=== PATIENT | female | born 1935 | race Hispanic/Latino ===

== ENCOUNTER 2016-12-26 13:48 | Inpatient (IN) | payer MEDICARE, BC ==
[2016-12-26 13:48] VITALS: BMI 25.0
[2016-12-26] MEDS ORDERED: Piperacill/Tazo 3.375gm in Dex 3.375 GM/50 ML BAG IVPB STA (14:01)
[2016-12-26] MEDS ORDERED: Vancomycin 1 gm/NS 200 ml 1 GM/200 ML BAG IVPB STA (14:01)
[2016-12-26 14:18] LABS: VENOUS BLOOD GAS BASE EXCESS 12.9 mmol/L (0.0-2.0); VENOUS BLOOD GAS PCO2 62 mmHg (40-60); VENOUS BLOOD PH 7.42 (7.32-7.43)
[2016-12-26 14:53] LABS: POTASSIUM 4.1 mmol/L (3.6-5.2)
[2016-12-26 14:56] LABS: ALB/GLOB RATIO 0.7 (1.0-2.1); BILIRUBIN,TOTAL 0.8 mg/dL (0.2-1.3); CALCIUM 7.5 mg/dl (8.6-10.4); TOTAL PROTEIN 7.3 g/dL (6.3-8.3)
[2016-12-26 14:58] LABS: INR 1.3
[2016-12-26 15:22] LABS: BASO % 0.2 % (0.0-2.0); LYMPH # 1.9 K/uL (1.0-4.3); MEAN CORPUSCULAR HGB CONC 28.4 g/dL (33.0-37.0)
[2016-12-26 15:23] LABS: EOS % 0.2 % (0.0-4.0); LYMPH % 10.8 % (20.0-40.0); MEAN CELL VOLUME 93.1 fL (81.0-99.0); MEAN CORPUSCULAR HEMOGLOBIN 26.4 pg (27.0-31.0); MEAN PLATELET VOLUME 13.7 fL (7.2-11.7); MONO # 0.4 K/uL (0.0-0.8); MONO % 2.5 % (0.0-10.0); NRBC % 0.1 % (0.0-2.0); RED CELL DISTRIBUTION WIDTH 20.3 % (11.5-14.5); WHITE BLOOD COUNT 17.8 K/uL (4.8-10.8)
[2016-12-26 15:25] LABS: HEMATOCRIT 33.5 % (34.0-47.0)
--- NOTE | 2016-12-26 15:31 | RAD ---
HISTORY: Sepsis patient. Portable study 14:25. COMPARISON: 10/26/2015. FINDINGS: LUNGS: Interval improvement bilateral lower lobe infiltrates compared to the prior study. Resolution right upper lobe infiltrate. PLEURA: No significant pleural effusion identified, no pneumothorax apparent. CARDIOVASCULAR: Persistent/stable cardiomegaly. OSSEOUS STRUCTURES: No significant abnormalities. VISUALIZED UPPER ABDOMEN: Normal. OTHER FINDINGS: None. IMPRESSION: Interval improvement with respect infiltrates/effusions compared to the prior study.
[2016-12-26] MEDS ORDERED: Magnesium Hydroxide Susp 30 ml UD PEG PRN (16:14)
[2016-12-26] MEDS ORDERED: guaiFENesin 100 mg/5 ml Syrup UD PO PRN (16:15)
[2016-12-26] MEDS ORDERED: Silver Sulfadiazine 1% Cream (20 gm) TOP SCH (16:15)
[2016-12-26] MEDS ORDERED: (Novolin R) Insulin Human Regular 100 units/ml vial SC SCH (16:15)
[2016-12-26] MEDS ORDERED: Acetylcysteine 20% Inhal Soln (4ml) IH SCH (16:15)
[2016-12-26] MEDS ORDERED: Collagenase 250 Units/gm Ointment(30 gm) EXT SCH (16:15)
[2016-12-26] MEDS ORDERED: DUONEB INH SCH (16:15)
[2016-12-26] MEDS ORDERED: BACITRACIN TP SCH (16:15)
--- NOTE | 2016-12-26 16:37 | CP.PCM.CON ---
History of Present Illness - History of Present Illness History of Present Illness: 81yo F. 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 p/w hypovolemic hypernatremia with acute on chronic kidney failure, and severe sepsis. Review of Systems - Review of Systems Systems not reviewed;Unavailable: Dementia Past Patient History - Infectious Disease Hx of Infectious Diseases: None - Past Medical History & Family History Past Medical History?: Yes - Past Social History Smoking Status: Never Smoked - CARDIAC Hx Hypertension: Yes - PULMONARY Hx Chronic Obstructive Pulmonary Disease (COPD): Yes Hx Pneumonia: Yes - NEUROLOGICAL Hx Dementia: Yes - HEENT Hx HEENT Problems: No - RENAL Hx Chronic Kidney Disease: Yes Hx Kidney Stones: Yes - ENDOCRINE/METABOLIC Hx Endocrine Disorders: No - HEMATOLOGICAL/ONCOLOGICAL Hx Anemia: Yes - INTEGUMENTARY Hx Dermatological Problems: No Other/Comment: DECUBITIS stage 3. - MUSCULOSKELETAL/RHEUMATOLOGICAL Hx Osteoporosis: Yes - GASTROINTESTINAL Hx Gastrointestinal Disorders: Yes Hx Gastroesophageal Reflux: Yes HX Swallowing Problems: Yes Other/Comment: patient with GT feeding. - GENITOURINARY/GYNECOLOGICAL Hx Genitourinary Disorders: Yes Hx Incontinence: Yes Other/Comment: positive ESBL in urine - PSYCHIATRIC Hx Anxiety: Yes Hx Substance Use: No (unknown) - SURGICAL HISTORY Hx Surgeries: Yes Hx Joint Replacement: Yes Other/Comment: PEG PLACEMENT - ANESTHESIA Hx Anesthesia: Yes Hx Anesthesia Reactions: No Hx Malignant Hyperthermia: No Meds Allergies/Adverse Reactions: Allergies Allergy/AdvReac Type Severity Reaction Status Date / Time No Known Allergies Allergy Verified 12/26/16 13:59 - Medications Medications: Current Medications Acetaminophen (Tylenol 325mg Tab) 650 mg PO Q4H PRN PRN Reason: Pain, Mild (1-3) Acetylcysteine (Acetylcysteine 20%) 4 ml IH Q6H [facility] Albuterol/Ipratropium (Duoneb 3 Mg/0.5 Mg (3 Ml) Ud) 3 ml INH RQID [facility] Collagenase (Santyl) 30 gm EXT Q8H [facility] Epoetin Eddy (Procrit) 10,000 unit SC MWF [facility] Folic Acid (Folic Acid) 1 mg PEG DAILY [facility] Guaifenesin (Robitussin) 100 mg PO Q4H PRN PRN Reason: Cough Home Med (Bacitracin [Bacitracin]) 1 each TP Q8H [facility] Home Med (Duoneb 3 Mg/0.5 Mg (3 Ml) Ud) 3 ml INH Q6H [facility] Dextrose (Dextrose 5% In Water 1000 Ml) 1,000 mls @ 100 mls/hr IV .Q10H [facility] Cefepime HCl (Maxipime Iv 2 Gm Premix) 2 gm in 100 mls @ 200 mls/hr IVPB Q8H [facility] Stop: 12/31/16 17:01 Vancomycin HCl 1,000 mg/ (Sodium Chloride) 250 mls @ 166.6 mls/hr IVPB Q12H [facility] Insulin Human Regular (Novolin R) 0 unit SC Q6H [facility] PRN Reason: Protocol Magnesium Hydroxide (Milk Of Magnesia) 30 ml PEG DAILY PRN PRN Reason: Constipation Pantoprazole Sodium (Protonix Susp) 40 mg PEG DAILY [facility] Silver Sulfadiazine (Silvadene 1% 20 Gm) 20,000 ea TOP Q8H [facility] Physical Exam - Constitutional Appears: Cachectic - Head Exam Head Exam: ATRAUMATIC, NORMAL INSPECTION, NORMOCEPHALIC - Eye Exam Eye Exam: EOMI Pupil Exam: PERRL - ENT Exam ENT Exam: Mucous Membranes Dry - Respiratory Exam Respiratory Exam: Decreased Breath Sounds - Cardiovascular Exam Cardiovascular Exam: Irregular Rhythm - GI/Abdominal Exam GI & Abdominal Exam: Normal Bowel Sounds. absent: Distended - Neurological Exam Neurological exam: Alert Results - Vital Signs Recent Vital Signs: Last Vital Signs Temp 101.3 F H 12/26/16 15:52 Pulse 49 L 12/26/16 15:46 Resp 40 H 12/26/16 15:46 BP 95/49 L 12/26/16 15:46 Pulse Ox 97 12/26/16 15:46 - Labs Result Diagrams: 12/26/16 14:35 12/26/16 14:35 Assessment & Plan (1) Acute hypernatremia Assessment and Plan: 81yo F. 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 p/w hypovolemic hypernatremia with acute on chronic kidney failure, and severe sepsis. Neuro: obtunded, metabolic encephalopathy. Palliative care consult to be called. Pulm: Healthcare associated pneumonia, continue duo nebs, guaifenesin, chest PT. Chest x-ray is deceiving, previous CT chest shows large boot shaped heart taking up most of left lower lung space, chronic dependent atelectasis with probably underlying pneumonia. CV: Mild hypotension, responsive to fluids. Hem: Anemia of chronic disease, continue Procrit Renal: Acute on chronic kidney disease, prerenal state hypovolemic state, severe hypovolemic hypernatremia. Starting D5W, every 4 BMPs. Endo: Questionable diabetes, check hemoglobin A1c. GI: Nothing by mouth ID: Severe sepsis from multiple sources, healthcare associated pneumonia, sacral decubitus, PEG Site infection and possible UTI awaiting urinalysis. Continue cefepime and Vanco and azithromycin. DVT proph - heparin subcutaneous GI proph - Protonix zambrano for strict I/O's during acute illness Code status - DNR/DNI Patient appears gravely ill, poor prognosis with high mortality risk. Crtical Care Time spent 45 minutes Multi-disciplinary rounds were performed with house staff, nursing, speech therapy, respiratory therapy, pharmacy and nutrition with integrated input from the primary team/attending and other consulting services. The documented time is cumulative and includes review of patient data/exams/labs/chart review and examination of the patient on rounds and throughout the day; time is exclusive of any procedures or teaching time. Status: Acute
--- NOTE | 2016-12-26 16:48 | CP.PCM.CON ---
History of Present Illness - History of Present Illness History of Present Illness: 81 yo female admitted to the ICU at with severe sepsis referred for ID eval for antibiotic management unable to provide details of PMH, SH FH or ROS last October had GT site infection with Pseudomonas resistant to Cefepime PMHx aspiration pneumonia, Dementia, COPD, duodenal ulcer, HTN, stage 5 CKD ( not on dialysis), PEG site infection. Review of Systems - Review of Systems Systems not reviewed;Unavailable: Altered Mental Status - Constitutional Constitutional: absent: As Per HPI, Anorexia, Chills, Daytime Sleepiness, Excessive Sweating, Fatigue, Fever, Frequent Falls, Headache, Increased Appetite , Lethargy, Malaise, Night Sweats, Snoring, Sleep Apnea, Weight Gain, Weight Loss, Weakness, Other - EENT Eyes: absent: As Per HPI, Blind Spots, Blurred Vision, Change in Vision, Decreased Night Vision, Diplopia, Discharge, Dry Eye, Exophthalmos, Floaters, Irritation, Itchy Eyes, Loss of Peripheral Vision, Pain, Photophobia, Requires Corrective Lenses, Sees Flashes, Spots in Vision, Tunnel Vision, Other Visual Disturbances, Loss of Vision, Other Ears: absent: As Per HPI, Decreased Hearing, Ear Discharge, Ear Pain, Tinnitus, Abnormal Hearing, Disequilibrium, Dizziness, Other Nose/Mouth/Throat: absent: As Per HPI, Epistaxis, Nasal Congestion, Nasal Discharge, Nasal Obstruction, Nasal Trauma, Nose Pain, Post Nasal Drip, Sinus Pain, Sinus Pressure, Bleeding Gums, Change in Voice, Dental Pain, Dry Mouth, Dysphagia, Halitosis, Hoarsness, Lip Swelling, Mouth Lesions, Mouth Pain, Odynophagia, Sore Throat, Throat Swelling, Tongue Swelling, Facial Pain, Neck Pain, Neck Mass, Other - Breasts Breasts: absent: As Per HPI, Change in Shape, Mass, Pain, Nipple Discharge, Nipple Inversion, Skin Changes, Swelling, Other - Cardiovascular Cardiovascular: absent: As Per HPI, Acrocyanosis, Chest Pain, Chest Pain at Rest , Chest Pain with Activity, Claudication, Diaphoresis, Dyspnea, Dyspnea on Exertion, Edema, Irregular Heart Rhythm, Pain Radiating to Arm/Neck/Jaw, Leg Edema, Leg Ulcers, Lightheadedness, Orthopnea, Palpitations, Paroxysmal Nocturnal Dyspnea, Pedal Edema, Radiating Pain, Rapid Heart Rate, Slow Heart Rate, Syncope, Other - Respiratory Respiratory: As Per HPI - Genitourinary Genitourinary: absent: As Per HPI, Change in Urinary Stream, Difficulty Urinating, Dysuria, Flank Pain, Hematuria, Pyuria, Nocturia, Urinary Incontinence, Urinary Frequency, Urinary Hesitance, Urinary Urgency, Voiding Freq/Small Amts, Freq UTI, Hx Renal/Bladder Calculi, Hx /Renal Surgery, Bladder Distension, Other - Reproductive: Female Reproductive:Female: absent: As Per HPI, Amenorrhea, Amenorrhea/ Control, Currently Menstual, Cycle <21 Days, Cycle >35 Days, Cycle Variable, Menses 1-7 Days, Menses >/= 8 Days, Menses Variable, Cycle > 4 Weeks Between, No Menses for 6 Months, Heavy Menses, Light Menses, Normal Menses, Spotting Between Cycles , S/P Hysterectomy, Menopausal, Post Menopausal, Premenarche, Abnormal Vaginal Bleeding, Dysmenorrhea, Dyspareunia, Genital Lesions, Genital Pruritis, Pelvic Pain, Prolapse Symptoms, Sexual Dysfunction, Vaginal Discharge, Vaginal Dryness , Vaginal Odor, Vaginal Pruritis, Other - Menstruation Menstruation: absent: As Per HPI, Amenorrhea, Amenorrhea/ Control, Currently Menstual, Cycle <21 Days, Cycle >35 Days, Cycle Variable, Menses 1-7 Days, Menses >/= 8 Days, Menses Variable, Cycle > 4 Weeks Between, No Menses for 6 Months, Heavy Menses, Light Menses, Normal Menses, Spotting Between Cycles , S/P Hysterectomy, Menopausal, Post Menopausal, Premenarche, Abnormal Vaginal Bleeding, Dysmenorrhea, Other - Musculoskeletal Musculoskeletal: absent: As Per HPI, Abnormal Gait, Arthralgias, Atrophy, Back Pain, Deformity, Joint Swelling, Limited Range of Motion, Loss of Height, Muscle Cramps, Muscle Weakness, Myalgias, Neck Pain, Numbness, Radiating Pain into Limb, Stiffness, Tingling, Other - Integumentary Integumentary: absent: As Per HPI, Acne, Alopecia, Bleeding Lesions, Change in Hair, Change in Nails, Change in Pigmentation, Changing Lesions, Dry Skin, Erythema, Furuncle, Hirsutism, Lesions, New Lesions, Non-Healing Lesions, Photosensitivity, Pruritus, Rash, Skin Pain, Skin Ulcer, Sores, Striae, Swelling , Unusual Bruising, Wounds, Jaundice, Other - Neurological Neurological: As Per HPI - Psychiatric Psychiatric: absent: As Per HPI, Abnormal Sleep Pattern, Anhedonia, Anxiety, Auditory Hallucinations, Behavioral Changes, Change in Appetite, Change in Libido, Confusion, Depression, Difficulty Concentrating, Hallucinations, Homicidal Ideation, Hopelessness, Irritability, Memory Loss, Mood Swings, Panic Attacks, Paranoia, Suicidal Ideation, Visual Hallucinations, Tactile Hallucinations, Other - Endocrine Endocrine: absent: As Per HPI, Change in Body Appearance, Change in Libido, Cold Intolorance, Deepening of Voice, Excessive Sweating, Fatigue, Flushing, Heat Intolorance, Increase in Ring/Shoe/Hat Size, Palpitations, Polydipsia, Polyphagia, Polyuria, Other - Hematologic/Lymphatic Hematologic: absent: As Per HPI, Easy Bleeding, Easy Bruising, Lymphadenopathy, Other Past Patient History - Infectious Disease Hx of Infectious Diseases: None - Past Medical History & Family History Past Medical History?: Yes - Past Social History Smoking Status: Never Smoked - CARDIAC Hx Hypertension: Yes - PULMONARY Hx Chronic Obstructive Pulmonary Disease (COPD): Yes Hx Pneumonia: Yes - NEUROLOGICAL Hx Dementia: Yes - HEENT Hx HEENT Problems: No - RENAL Hx Chronic Kidney Disease: Yes Hx Kidney Stones: Yes - ENDOCRINE/METABOLIC Hx Endocrine Disorders: No - HEMATOLOGICAL/ONCOLOGICAL Hx Anemia: Yes - INTEGUMENTARY Hx Dermatological Problems: No Other/Comment: DECUBITIS stage 3. - MUSCULOSKELETAL/RHEUMATOLOGICAL Hx Osteoporosis: Yes - GASTROINTESTINAL Hx Gastrointestinal Disorders: Yes Hx Gastroesophageal Reflux: Yes HX Swallowing Problems: Yes Other/Comment: patient with GT feeding. - GENITOURINARY/GYNECOLOGICAL Hx Genitourinary Disorders: Yes Hx Incontinence: Yes Other/Comment: positive ESBL in urine - PSYCHIATRIC Hx Anxiety: Yes Hx Substance Use: No (unknown) - SURGICAL HISTORY Hx Surgeries: Yes Hx Joint Replacement: Yes Other/Comment: PEG PLACEMENT - ANESTHESIA Hx Anesthesia: Yes Hx Anesthesia Reactions: No Hx Malignant Hyperthermia: No Meds Allergies/Adverse Reactions: Allergies Allergy/AdvReac Type Severity Reaction Status Date / Time No Known Allergies Allergy Verified 12/26/16 13:59 - Medications Medications: Current Medications Acetaminophen (Tylenol 325mg Tab) 650 mg PO Q4H PRN PRN Reason: Pain, Mild (1-3) Acetylcysteine (Acetylcysteine 20%) 4 ml IH Q6H [facility] Albuterol/Ipratropium (Duoneb 3 Mg/0.5 Mg (3 Ml) Ud) 3 ml INH RQID [facility] Bacitracin (Bacitracin) 1 ea TOP Q8H [facility] Collagenase (Santyl) 1 gm EXT Q8H [facility] Epoetin Eddy (Procrit) 10,000 unit SC MWF [facility] Folic Acid (Folic Acid) 1 mg PEG DAILY [facility] Guaifenesin (Robitussin) 100 mg PO Q4H PRN PRN Reason: Cough Dextrose (Dextrose 5% In Water 1000 Ml) 1,000 mls @ 100 mls/hr IV .Q10H [facility] Cefepime HCl (Maxipime Iv 2 Gm Premix) 2 gm in 100 mls @ 200 mls/hr IVPB Q8H [facility] Stop: 12/31/16 17:01 Vancomycin HCl 1,000 mg/ (Sodium Chloride) 250 mls @ 166.6 mls/hr IVPB Q12H [facility] Insulin Human Regular (Novolin R) 0 unit SC Q6H [facility] PRN Reason: Protocol Magnesium Hydroxide (Milk Of Magnesia) 30 ml PEG DAILY PRN PRN Reason: Constipation Pantoprazole Sodium (Protonix Susp) 40 mg PEG DAILY [facility] Silver Sulfadiazine (Silvadene 1% 20 Gm) 0.02 ea TOP Q8H [facility] Physical Exam - Constitutional Appears: Confused, Cachectic, Chronically Ill - Head Exam Head Exam: ATRAUMATIC, NORMAL INSPECTION, NORMOCEPHALIC - Eye Exam Eye Exam: EOMI, PERRL. absent: Scleral icterus - ENT Exam ENT Exam: Mucous Membranes Dry - Neck Exam Neck exam: Negative for: Lymphadenopathy - Respiratory Exam Respiratory Exam: Decreased Breath Sounds, Rales, Rhonchi - Cardiovascular Exam Cardiovascular Exam: REGULAR RHYTHM, +S1, +S2 - GI/Abdominal Exam GI & Abdominal Exam: Diminished Bowel Sounds, Distended, Soft. absent: Guarding , Rebound, Rigid, Tenderness - Rectal Exam Rectal Exam: Deferred - Exam Exam: NORMAL INSPECTION - Extremities Exam Extremities exam: Positive for: pedal pulses present. Negative for: calf tenderness, pedal edema, tenderness - Back Exam Back exam: absent: CVA tenderness (L), CVA tenderness (R), paraspinal tenderness - Neurological Exam Neurological exam: Alert, Altered, CN II-XII Intact - Psychiatric Exam Psychiatric exam: Depressed - Skin Skin Exam: Dry Results - Vital Signs Recent Vital Signs: Last Vital Signs Temp 101.3 F H 12/26/16 15:52 Pulse 49 L 12/26/16 15:46 Resp 40 H 12/26/16 15:46 BP 95/49 L 12/26/16 15:46 Pulse Ox 97 12/26/16 15:46 - Labs Result Diagrams: 12/26/16 14:35 12/26/16 14:35 Assessment & Plan (1) Acute hypernatremia Status: Acute (2) Blood bacterial culture positive Status: Acute (3) COPD with lower respiratory infection Status: Acute (4) CVA (cerebral vascular accident) Status: Acute (5) Pneumonia Status: Acute (6) Sepsis Status: Acute (7) Sepsis with metabolic encephalopathy Status: Acute (8) Septic shock Status: Acute - Assessment and Plan (Free Text) Assessment: cont iv rx await cultures and serologies
[2016-12-26 16:55] LABS: ABG ALLEN TEST PO; DRAW SITE RRA
[2016-12-26] MEDS ORDERED: Cefepime IV 2 gm in Dextrose 2 GM/100 ML BAG IVPB SCH (17:00)
[2016-12-26] MEDS: Albuterol-Ipratrop 3 mg / 0.5 (3 ml) UD INH SCH ×2 (17:27→19:54)
--- NOTE | 2016-12-26 18:06 | C.PDOC ---
History Of Present Illness 81-year-old female, is transferred from assisted for "breathing problems." Pt brought in by bls using bag-valve mask. Found to have afever of 102. Patients blood pressure in the 70's. Review of paperwork, POLTS with DNR/DNI including. All other Hx limited because patient is unresponsive. Chief Complaint (Nursing): Altered Mental Status History Per: EMS, Other (USP DOCUMENTS) History/Exam Limitations: clinical condition Current Symptoms Are (Timing): Still Present Severity: Moderate Past Medical History Reviewed: Historical Data, Nursing Documentation, Vital Signs Vital Signs: Last Vital Signs Temp 101.3 F H 12/26/16 15:52 Pulse 114 H 12/26/16 17:00 Resp 40 H 12/26/16 15:46 BP 95/49 L 12/26/16 15:46 Pulse Ox 97 12/26/16 19:05 - Medical History PMH: Anemia, Anxiety, Arthritis, COPD, Dementia, Fractures, Gastrointestinal Ulcer (GIB), GERD, HTN, Kidney Stones, Osteoporosis, Pneumonia, Chronic Kidney Disease - [facility] Procedures ATTACH PEDICLE GRAFT NEC (07/25/13) CENTRAL VENOUS CATHETER PLACEMENT WITH GUIDANCE (04/22/14) CLOSED ENDOSCOPIC BIOPSY OF LARGE INTESTINE (12/20/01) DX ULTRASOUND-HEART (01/17/13) ENTERAL INFUSION OF CONCENTRATED NUT. SUBSTANCES (03/29/14) ESOPHAGOGASTRODUODENOSCOPY [EGD] W/CLOSED BIOPSY (02/19/05) HEMODIALYSIS (01/17/13) INCIS W REM OF FORIEGN BODY OR DEV FROM SKIN & SUBCUT TISSUE (02/19/13) INFLUENZA VACCINATION (05/22/14) INJECT/INFUSE NEC (08/30/06) INSERTION OF INFUSION DEV INTO SUP VENA CAVA, PERC APPROACH (09/10/16) INSPECTION OF UPPER INTESTINAL TRACT, ENDO (09/10/16) INTRODUCTION OF NUTRITIONAL INTO PERIPH VEIN, PERC APPROACH (10/24/16) INTRODUCTION OF VASOPRESSOR INTO PERIPH VEIN, PERC APPROACH (10/24/16) MAGNETIC RESONANCE IMAGING OF BRAIN AND BRAIN STEM (03/02/07) OTHER ENDOSCOPY OF SM INTEST (01/07/15) OTHER FASCIECTOMY (07/25/13) OTHER GASTROSCOPY (05/22/14) OTHER MYECTOMY (01/17/13) PACKED CELL TRANSFUSION (01/17/13) PERCUTANEOUS [ENDOSCOPIC] GASTROSTOMY [PEG] (01/07/15) PERIOP AUTOLOGOUS BLOOD/COMP TRANS (08/30/06) PSYCHIAT DRUG THERAP NEC (04/08/07) REMOV GASTROSTOMY TUBE (01/07/15) REMOV INTRALUM GASTR FB (05/22/14) REMOVAL OF OTHER DEVICE FROM GI TRACT, PERC APPROACH (10/24/16) TOTAL HIP REPLACEMENT (08/30/06) TRANSFUSE NONAUT RED BLOOD CELLS IN PERIPH VEIN, PERC (10/24/16) VACCINATION NEC (05/22/14) VENOUS CATHETERIZATION FOR RENAL DIALYSIS (01/17/13) VENOUS CATHETERIZATION NEC (05/22/14) Family History: States: Unknown Family Hx - Social History Hx Tobacco Use: No Hx Alcohol Use: No (unknown) Hx Substance Use: No (unknown) - Immunization History Hx Influenza Vaccination: Yes Hx Pneumococcal Vaccination: Yes Review Of Systems Review Of Systems: ROS cannot be obtained secondary to pt's inabilty to answer questions. Respiratory: Positive for: Shortness of Breath Physical Exam - Physical Exam Appears: Toxic, In Acute Distress, Chronically Ill, Other Skin: Normal Color, Warm (reallyh hot), Other (extensive sacral decubiti) Head: Atraumatic, Normacephalic Eye(s): bilateral: Normal Inspection, PERRL Nose: Normal Oral Mucosa: Dry Neck: Normal ROM Chest: Symmetrical Cardiovascular: Rhythm Regular Respiratory: Decreased Breath Sounds, Rhonchi (SCATTERED) Gastrointestinal/Abdominal: Soft, No Tenderness (apparent), No Distention, No Guarding, Other (FEEDING TUBE IN PLACE) Extremity: Normal ROM Pain Response: Withdraws With Pain, Other (no focal signs) Disoriented To: Person, Place, Time Gait: Unable To Assess ED Course And Treatment - Laboratory Results Result Diagrams: 12/26/16 14:35 12/26/16 14:35 ECG: Interpreted By Me ECG Rhythm: Sinus Rhythm Interpretation Of ECG: Old inf SC, poor r wave progression, low voltage Rate From EC O2 Sat by Pulse Oximetry: 97 - Radiology CXR: Interpreted by Me CXR Interpretation: Yes: Infiltrates Critical Care Time - Critical Care Note Total Time (in mins): 30 Documented critical care: time excludes all time spent performing seperately billable procedures. Medical Decision Making Medical Decision Making: Code sepsis called in ED cultures, VBG, and fluids ordered Abx coverage, started for skin, post cxr avalox added BP improved, temp down Labs with markedly elevated wbc's, na and bun Discussed with dr Marcelle Magallanes and Intensiveist Plan ICU Disposition - Disposition Disposition: HOSPITALIZED Disposition Time: 06:00 Condition: CRITICAL - Clinical Impression Clinical Impression: Sepsis, Pneumonia, Hypernatremia, Dehydration - Scribe Statement The provider has reviewed the documentation as recorded by the Charletteibbobbi Philip All medical record entries made by the Charletteibbobbi were at my direction and personally dictated by me. I have reviewed the chart and agree that the record accurately reflects my personal performance of the history, physical exam, medical decision making, and the department course for this patient. I have also personally directed, reviewed, and agree with the discharge instructions and disposition.
[2016-12-26] MEDS: Meropenem 1 GM in Sodium Chloride 0.9% 100 ML IVPB SCH ×2 (18:11→22:50)
[2016-12-26] MEDS: (Novolin R) Insulin Human Regular 100 units/ml vial SC SCH (18:12)
[2016-12-26] MEDS: Collagenase 250 Units/gm Ointment(30 gm) EXT SCH (18:12)
[2016-12-26] MEDS: Silver Sulfadiazine 1% Cream (20 gm) TOP SCH (18:12)
[2016-12-26] MEDS: Bacitracin 500 Units/gm Oint Foilpak UD TOP SCH (18:33)
[2016-12-26] MEDS ORDERED: Lactated Ringer's 1,000 ML IV ONE (20:22)
--- NOTE | 2016-12-26 20:45 | CP.PCM.HP ---
History of Present Illness - History of Present Illness History of Present Illness: 81-year-old female patient with medical history of hypertension, kidney stone, CKD, osteoporosis, GI ulcer, COPD, arthritis, pneumonia, patient is transferred from [place] [facility] for breathing difficulty, found to have high-grade fever. POLTS with DNR. Patient is unresponsive. Systolic blood pressure was in 70s. Diagnosed with septic shock and started on IV hydration antibiotics. Patient is having PEG tube, greenish discharge from the PEG tube. Present on Admission - Present on Admission Any Indicators Present on Admission: No Past Patient History - Infectious Disease Hx of Infectious Diseases: None - Past Medical History & Family History Past Medical History?: Yes - Past Social History Smoking Status: Unknown If Ever Smoked - CARDIAC Hx Hypertension: Yes - PULMONARY Hx Chronic Obstructive Pulmonary Disease (COPD): Yes Hx Pneumonia: Yes - NEUROLOGICAL Hx Dementia: Yes - HEENT Hx HEENT Problems: No - RENAL Hx Chronic Kidney Disease: Yes Hx Kidney Stones: Yes - ENDOCRINE/METABOLIC Hx Endocrine Disorders: No - HEMATOLOGICAL/ONCOLOGICAL Hx Anemia: Yes - INTEGUMENTARY Hx Dermatological Problems: No Other/Comment: DECUBITIS stage 3. - MUSCULOSKELETAL/RHEUMATOLOGICAL Hx Arthritis: Yes Hx Fractures: Yes Hx Osteoporosis: Yes - GASTROINTESTINAL Hx Gastrointestinal Disorders: Yes Hx Gastroesophageal Reflux: Yes HX Swallowing Problems: Yes Other/Comment: patient with GT feeding. - GENITOURINARY/GYNECOLOGICAL Hx Genitourinary Disorders: Yes Hx Incontinence: Yes Other/Comment: positive ESBL in urine - PSYCHIATRIC Hx Anxiety: Yes Hx Substance Use: No (unknown) - SURGICAL HISTORY Hx Surgeries: Yes Hx Joint Replacement: Yes Other/Comment: PEG PLACEMENT - ANESTHESIA Hx Anesthesia: Yes Hx Anesthesia Reactions: No Hx Malignant Hyperthermia: No Meds Allergies/Adverse Reactions: Allergies Allergy/AdvReac Type Severity Reaction Status Date / Time No Known Allergies Allergy Verified 12/26/16 13:59 Results - Vital Signs Recent Vital Signs: Last Vital Signs Temp 101.3 F H 12/26/16 15:52 Pulse 90 12/26/16 19:56 Resp 40 H 12/26/16 15:46 BP 95/49 L 12/26/16 15:46 Pulse Ox 97 12/26/16 19:27 - Labs Result Diagrams: 12/29/16 06:08 12/29/16 06:05 Labs: Laboratory Results - last 24 hr 12/26/16 16:50 Puncture Site Rra pCO2 64 H pO2 116 H HCO3 31.5 H ABG pH 7.36 ABG Total CO2 38.2 H ABG O2 Saturation 99.6 H ABG Base Excess 8.4 H Marcos Test Po ABG Potassium 3.2 L A-a O2 Difference 517.0 Respiratory Index 4.5 Sodium 182.0 H* Chloride 148.0 H Glucose 216 H Lactate 2.0 FiO2 100.0 Crit Value Called To Dr thompson Crit Value Called By Kimberley schmitt Crit Value Read Back Y Blood Gas Notified Time 1657 Arterial Blood Potassium 3.2 L Assessment & Plan (1) Acute hypernatremia Status: Acute (2) Blood bacterial culture positive Status: Acute (3) COPD with lower respiratory infection Status: Acute (4) CVA (cerebral vascular accident) Status: Acute (5) Cellulitis Status: Acute (6) Contusion Status: Acute (7) Dehydration Status: Acute (8) Fever and chills Status: Acute (9) Gastrostomy tube obstruction Status: Acute (10) Hypernatremia Status: Acute (11) PEG (percutaneous endoscopic gastrostomy) adjustment/replacement/removal Status: Acute (12) Physical debility Status: Acute (13) Pneumonia Status: Acute (14) Pneumonia Status: Acute (15) Sacral decubitus ulcer, stage III Status: Acute (16) Senile debility Status: Acute (17) Sepsis Status: Acute (18) Sepsis Status: Acute (19) Sepsis with metabolic encephalopathy Status: Acute (20) Septic shock Status: Acute (21) Abnormal CXR (chest x-ray) Status: Chronic (22) Aspiration into lower respiratory tract Status: Chronic (23) Dementia Status: Chronic - Assessment and Plan (Free Text) Plan: id septic wokr up iv antibiotic feeding iv fluid rptonix lvoenox faisal same
[2016-12-26] MEDS: Azithromycin 500 MG in Sodium Chloride 0.9% 250 ML IVPB SCH (21:21)
[2016-12-26 22:28] LABS: RBC URINE 6 /hpf (0-3); URINE BACTERIA FEW (<OCC); URINE BILIRUBIN NEGATIVE (NEGATIVE); URINE BLOOD NEGATIVE (NEGATIVE); URINE COLOR Yellow (YELLOW); URINE GLUCOSE (UA) NORMAL (Normal); URINE KETONE NEGATIVE (NEGATIVE); URINE LEUKOCYTE ESTERASE NEG Leu/uL (Negative); URINE PROTEIN 1+ mg/dL (NEGATIVE); URINE UROBILINOGEN NORMAL mg/dL (0.2-1.0); WBC URINE 22 /hpf (0-5)
[2016-12-27] MEDS: (Novolin R) Insulin Human Regular 100 units/ml vial SC SCH ×4 (00:07→18:31)
[2016-12-27 00:48] LABS: POTASSIUM 2.9 mmol/L (3.6-5.2)
[2016-12-27 00:52] LABS: CALCIUM 6.9 mg/dl (8.6-10.4); MAGNESIUM 3.6 mg/dL (1.6-2.3)
[2016-12-27] MEDS: Silver Sulfadiazine 1% Cream (20 gm) TOP SCH ×3 (01:21→18:00)
[2016-12-27] MEDS: Collagenase 250 Units/gm Ointment(30 gm) EXT SCH ×3 (01:22→18:00)
[2016-12-27] MEDS: Bacitracin 500 Units/gm Oint Foilpak UD TOP SCH (01:24)
[2016-12-27] MEDS: Meropenem 1 GM in Sodium Chloride 0.9% 100 ML IVPB SCH ×3 (05:00→22:00)
[2016-12-27 06:27] LABS: BASO % 0.2 % (0.0-2.0); EOS % 0.3 % (0.0-4.0); HEMATOCRIT 25.6 % (34.0-47.0); LYMPH # 0.9 K/uL (1.0-4.3); MEAN CELL VOLUME 93.7 fL (81.0-99.0); MEAN CORPUSCULAR HEMOGLOBIN 27.5 pg (27.0-31.0); MEAN CORPUSCULAR HGB CONC 29.4 g/dL (33.0-37.0); MEAN PLATELET VOLUME 13.5 fL (7.2-11.7); MONO # 0.2 K/uL (0.0-0.8); MONO % 1.7 % (0.0-10.0); NRBC % 0.1 % (0.0-2.0); PLATELET COUNT 106 K/uL (130-400); WHITE BLOOD COUNT 10.3 K/uL (4.8-10.8)
[2016-12-27 06:30] LABS: CHLORIDE 134 mmol/L (98-107)
[2016-12-27 06:31] LABS: POTASSIUM 3.1 mmol/L (3.6-5.2)
[2016-12-27 06:33] LABS: BILIRUBIN,TOTAL 0.2 mg/dL (0.2-1.3); CARBON DIOXIDE 29 mmol/L (22-30); GFR AFRICAN-AMERICAN > 60
[2016-12-27 06:34] LABS: ALB/GLOB RATIO 0.6 (1.0-2.1); ALKALINE PHOSPHATASE 83 U/L (38-126); ALT/SGPT 35 U/L (9-52); AST/SGOT 35 U/L (14-36); CALCIUM 6.9 mg/dl (8.6-10.4); GLUCOSE,RANDOM 287 mg/dL (65-105); MAGNESIUM 3.4 mg/dL (1.6-2.3); PHOSPHOROUS 3.4 mg/dL (2.5-4.5); TOTAL PROTEIN 5.6 g/dL (6.3-8.3)
[2016-12-27 06:38] LABS: BLOOD UREA NITROGEN 106 mg/dL (7-17)
[2016-12-27 06:39] LABS: SODIUM 172 mmol/L (132-148)
[2016-12-27] MEDS: Acetylcysteine 20% Inhal Soln (4ml) IH SCH ×4 (07:28→19:52)
[2016-12-27] MEDS: Albuterol-Ipratrop 3 mg / 0.5 (3 ml) UD INH SCH ×4 (07:28→19:52)
[2016-12-27] MEDS: Bacitracin Ointment 30 GM TUBE TOP SCH ×2 (09:00→18:00)
[2016-12-27 09:05] LABS: TOTAL CELLS COUNTED 100
[2016-12-27 09:06] LABS: NEUTROPHIL 58 % (50-75)
[2016-12-27] MEDS ORDERED: Epoetin Alfa 10,000 unit/ml Dialysis SC ONE (10:00)
[2016-12-27] MEDS ORDERED: Pantoprazole 40 mg Susp UD PEG SCH (10:00)
--- NOTE | 2016-12-27 10:38 | CP.PCM.CON ---
History of Present Illness - History of Present Illness History of Present Illness: Palliative consult requested by Eddie MADRID Reason: Goals of care discussion Patient is a 81 yo female admitted from [facility] with shortness of breath. IN ER patient was found to be with fever of 102.0, Na 182 and WBC 17.8. patient was unresponsive and hypotensive with SBP in 70s. Patient was diagnosed with severe sepsis, started on IV hydration and IV antibiotics, Merrem , Zithromax, and Vanco. patient is on procrit, last Hb 7.5, was 9.5 on admission. BUN 106, Yard Coupler 1.0, Alb 20.. Patient was on HD about 5 years ago. No on HD at present. About 6 YA patient was diagnosed with dysphagia and was give PEG tube. At [id number] the PEG tube is infected with greenish discharge and is not being used. PMH: dementia, COPD, asp pneumonia, HTN, ESRD no HD, PEG Soc.Hx : [place] resident, , has three daughters Fam. Hx: Unknown Review of Systems - Review of Systems Systems not reviewed;Unavailable: Altered Mental Status Past Patient History - Infectious Disease Hx of Infectious Diseases: None - Past Medical History & Family History Past Medical History?: Yes - Past Social History Smoking Status: Unknown If Ever Smoked - CARDIAC Hx Hypertension: Yes - PULMONARY Hx Chronic Obstructive Pulmonary Disease (COPD): Yes Hx Pneumonia: Yes - NEUROLOGICAL Hx Dementia: Yes - HEENT Hx HEENT Problems: No - RENAL Hx Chronic Kidney Disease: Yes Hx Kidney Stones: Yes - ENDOCRINE/METABOLIC Hx Endocrine Disorders: No - HEMATOLOGICAL/ONCOLOGICAL Hx Anemia: Yes - INTEGUMENTARY Hx Dermatological Problems: No Other/Comment: DECUBITIS stage 3. - MUSCULOSKELETAL/RHEUMATOLOGICAL Hx Arthritis: Yes Hx Fractures: Yes Hx Osteoporosis: Yes - GASTROINTESTINAL Hx Gastrointestinal Disorders: Yes Hx Gastroesophageal Reflux: Yes HX Swallowing Problems: Yes Other/Comment: patient with GT feeding. - GENITOURINARY/GYNECOLOGICAL Hx Genitourinary Disorders: Yes Hx Incontinence: Yes Other/Comment: positive ESBL in urine - PSYCHIATRIC Hx Anxiety: Yes Hx Substance Use: No (unknown) - SURGICAL HISTORY Hx Surgeries: Yes Hx Joint Replacement: Yes Other/Comment: PEG PLACEMENT - ANESTHESIA Hx Anesthesia: Yes Hx Anesthesia Reactions: No Hx Malignant Hyperthermia: No Meds Allergies/Adverse Reactions: Allergies Allergy/AdvReac Type Severity Reaction Status Date / Time No Known Allergies Allergy Verified 12/26/16 13:59 - Medications Medications: Current Medications Acetaminophen (Tylenol 325mg Tab) 650 mg PO Q4H PRN PRN Reason: Pain, Mild (1-3) Acetylcysteine (Acetylcysteine 20%) 4 ml IH RQID [facility] Last Admin: 12/27/16 07:28 Dose: 4 ml Albuterol/Ipratropium (Duoneb 3 Mg/0.5 Mg (3 Ml) Ud) 3 ml INH RQID [facility] Last Admin: 12/27/16 07:28 Dose: 3 ml Bacitracin (Bacitracin) 0 gm TOP Q8H [facility] Collagenase (Santyl) 1 gm EXT Q8H [facility] Last Admin: 12/27/16 08:18 Dose: 1 gm Enoxaparin Sodium (Lovenox) 30 mg SC DAILY [facility] Epoetin Eddy (Procrit) 10,000 unit SC MWF [facility] Folic Acid (Folic Acid) 1 mg PEG DAILY [facility] Guaifenesin (Robitussin) 100 mg PO Q4H PRN PRN Reason: Cough Meropenem 1 gm/ Sodium (Chloride) 100 mls @ 100 mls/hr IVPB Q8 [facility] Last Admin: 12/27/16 05:00 Dose: 100 mls/hr Azithromycin 500 mg/ Sodium (Chloride) 250 mls @ 250 mls/hr IVPB DAILY [facility] Last Admin: 12/26/16 21:21 Dose: 250 mls/hr Vancomycin HCl 1 gm/ Sodium (Chloride) 250 mls @ 166.6 mls/hr IVPB Q12H [facility] Stop: 01/01/17 06:01 Last Admin: 12/27/16 06:05 Dose: 166.6 mls/hr Dextrose (Dextrose 5% In Water 1000 Ml) 1,000 mls @ 145 mls/hr IV .Q6H54M [facility] Potassium Chloride (Potassium Chloride 10 Meq/100 Ml) 10 meq in 100 mls @ 100 mls/hr IVPB Q2H [facility] Stop: 12/27/16 13:29 Insulin Human Regular (Novolin R) 0 unit SC Q6H [facility] PRN Reason: Protocol Last Admin: 12/27/16 06:02 Dose: 5 unit Magnesium Hydroxide (Milk Of Magnesia) 30 ml PEG DAILY PRN PRN Reason: Constipation Pantoprazole Sodium (Protonix Susp) 40 mg PEG DAILY [facility] Silver Sulfadiazine (Silvadene 1% 20 Gm) 0.02 ea TOP Q8H [facility] Last Admin: 12/27/16 08:18 Dose: 1 gm Physical Exam - Constitutional Appears: Chronically Ill - Head Exam Head Exam: ATRAUMATIC, NORMAL INSPECTION, NORMOCEPHALIC - Eye Exam Eye Exam: Normal appearance Pupil Exam: Fixed - ENT Exam ENT Exam: Mucous Membranes Dry, Normal Exam - Neck Exam Neck exam: Positive for: Normal Inspection - Respiratory Exam Respiratory Exam: Decreased Breath Sounds Additional comments: On CPAP - Cardiovascular Exam Cardiovascular Exam: Tachycardia, REGULAR RHYTHM - GI/Abdominal Exam GI & Abdominal Exam: Diminished Bowel Sounds Additional comments: PEG tube infected - Rectal Exam Rectal Exam: Deferred - Exam Additional comments: Fraser - Extremities Exam Extremities exam: Positive for: pedal edema Additional comments: hands contracted, general edema - Back Exam Back exam: NORMAL INSPECTION - Neurological Exam Neurological exam: Alert, Altered - Psychiatric Exam Psychiatric exam: Flat Affect - Skin Skin Exam: Pallor Results - Vital Signs Recent Vital Signs: Last Vital Signs Temp 97.4 F L 12/27/16 08:00 Pulse 72 12/27/16 09:03 Resp 27 H 12/27/16 09:03 BP 85/43 L 12/27/16 09:03 Pulse Ox 100 12/27/16 09:03 - Labs Result Diagrams: 12/27/16 06:18 12/27/16 06:17 Labs: Laboratory Results - last 24 hr 12/26/16 12/26/16 12/27/16 16:50 22:20 00:29 WBC RBC Hgb Hct MCV MCH MCHC RDW Plt Count MPV Neut % (Auto) Lymph % (Auto) [place] % (Auto) Eos % (Auto) Baso % (Auto) Neut # Lymph # [place] # Eos # Baso # Neutrophils % (Manual) Band Neutrophils % Lymphocytes % (Manual) Monocytes % (Manual) Platelet Estimate Hypochromasia (manual) Anisocytosis (manual) Microcytosis (manual) Puncture Site Rra pCO2 64 H pO2 116 H HCO3 31.5 H ABG pH 7.36 ABG Total CO2 38.2 H ABG O2 Saturation 99.6 H ABG Base Excess 8.4 H Marcos Test Po ABG Potassium 3.2 L A-a O2 Difference 517.0 Respiratory Index 4.5 Sodium 182.0 H* 177 H* Chloride 148.0 H 135 H Glucose 216 H Lactate 2.0 FiO2 100.0 Crit Value Called To Dr thompson Crit Value Called By Kimberley schmitt Crit Value Read Back Y Blood Gas Notified Time 1655 Potassium 2.9 L Carbon Dioxide 33 H Anion Gap 12 BUN 112 H* Creatinine 1.2 Est GFR ( Amer) 52 Est GFR (Non-Af Amer) 43 POC Glucose (mg/dL) Random Glucose 208 H Calcium 6.9 L Phosphorus 4.0 Magnesium 3.6 H Total Bilirubin AST ALT Alkaline Phosphatase Total Protein Albumin Globulin Albumin/Globulin Ratio Arterial Blood Potassium 3.2 L Urine Color Yellow Urine Clarity Hazy Urine pH 5.0 Ur Specific [place] 1.020 Urine Protein 1+ H Urine Glucose (UA) Normal Urine Ketones Negative Urine Blood Negative Urine Nitrate Negative Urine Bilirubin Negative Urine Urobilinogen Normal Ur Leukocyte Esterase Neg Urine WBC (Auto) 22 H Urine RBC (Auto) 6 H Ur Squamous Epith Cells 1 Urine Bacteria Few H 12/27/16 12/27/16 12/27/16 00:30 05:37 06:17 WBC RBC Hgb Hct MCV MCH MCHC RDW Plt Count MPV Neut % (Auto) Lymph % (Auto) [place] % (Auto) Eos % (Auto) Baso % (Auto) Neut # Lymph # [place] # Eos # Baso # Neutrophils % (Manual) Band Neutrophils % Lymphocytes % (Manual) Monocytes % (Manual) Platelet Estimate Hypochromasia (manual) Anisocytosis (manual) Microcytosis (manual) Puncture Site pCO2 pO2 HCO3 ABG pH ABG Total CO2 ABG O2 Saturation ABG Base Excess Marcos Test ABG Potassium A-a O2 Difference Respiratory Index Sodium 172 H* Chloride 134 H Glucose Lactate FiO2 Crit Value Called To Crit Value Called By Crit Value Read Back Blood Gas Notified Time Potassium 3.1 L Carbon Dioxide 29 Anion Gap 12 BUN 106 H* Creatinine 1.0 Est GFR ( Amer) > 60 Est GFR (Non-Af Amer) 53 POC Glucose (mg/dL) 263 H 380 H Random Glucose 287 H Calcium 6.9 L Phosphorus 3.4 Magnesium 3.4 H Total Bilirubin 0.2 AST 35 ALT 35 Alkaline Phosphatase 83 Total Protein 5.6 L Albumin 2.0 L D Globulin 3.6 Albumin/Globulin Ratio 0.6 L Arterial Blood Potassium Urine Color Urine Clarity Urine pH Ur Specific [place] Urine Protein Urine Glucose (UA) Urine Ketones Urine Blood Urine Nitrate Urine Bilirubin Urine Urobilinogen Ur Leukocyte Esterase Urine WBC (Auto) Urine RBC (Auto) Ur Squamous Epith Cells Urine Bacteria 12/27/16 06:18 WBC 10.3 RBC 2.73 L Hgb 7.5 L D Hct 25.6 L MCV 93.7 MCH 27.5 MCHC 29.4 L RDW 20.0 H Plt Count 106 L D MPV 13.5 H Neut % (Auto) 88.8 H Lymph % (Auto) 9.0 L [place] % (Auto) 1.7 Eos % (Auto) 0.3 Baso % (Auto) 0.2 Neut # 9.1 H Lymph # 0.9 L [place] # 0.2 Eos # 0.0 Baso # 0.0 Neutrophils % (Manual) 58 Band Neutrophils % 29 H* Lymphocytes % (Manual) 12 L Monocytes % (Manual) 1 Platelet Estimate Slightly decreased L Hypochromasia (manual) Slight Anisocytosis (manual) Moderate Microcytosis (manual) Slight Puncture Site pCO2 pO2 HCO3 ABG pH ABG Total CO2 ABG O2 Saturation ABG Base Excess Marcos Test ABG Potassium A-a O2 Difference Respiratory Index Sodium Chloride Glucose Lactate FiO2 Crit Value Called To Crit Value Called By Crit Value Read Back Blood Gas Notified Time Potassium Carbon Dioxide Anion Gap BUN Creatinine Est GFR ( Amer) Est GFR (Non-Af Amer) POC Glucose (mg/dL) Random Glucose Calcium Phosphorus Magnesium Total Bilirubin AST ALT Alkaline Phosphatase Total Protein Albumin Globulin Albumin/Globulin Ratio Arterial Blood Potassium Urine Color Urine Clarity Urine pH Ur Specific [place] Urine Protein Urine Glucose (UA) Urine Ketones Urine Blood Urine Nitrate Urine Bilirubin Urine Urobilinogen Ur Leukocyte Esterase Urine WBC (Auto) Urine RBC (Auto) Ur Squamous Epith Cells Urine Bacteria Assessment & Plan - Assessment and Plan (Free Text) Assessment: Palliative consult Code status DNR/DNI, POLST on chart, PPS 10%, ROS unobtainable due to AMS Charts reviewed, all diagnostic studies and patient examined in bed. ROS obtained from nursing and patient's daughter. Goals of care discussed with daughter Vera, over the phone Patient is alert, altered. Eyes open, pupils fixed, patient does not make purposeful eye contact. Skin is pale. Edema to lower and upper extremities. Hands contracted. CPAP on, O2Sat 100%. BP 86/44, HR 74, afebrile. D5% at 100cc per hour on board. Fraser at bedside, urine yellow. I discussed patient's clinical presentation and goals of care with patient's daughter Vera, over the phone. She admits not seeing her mother for few weeks. The last time she saw her, patient was able to talk and was alert and oriented. Daughter is aware of her mother's long standing chronic condition and her slow decline. She is expecting her mother to recover to her baseline status and return to [place]. Impression * This is a chronically ill patient with acute symptoms of severe dehydration * Infected PEG * Malnutrition * AMS * Hypernatremia secondary to hypovolemia * Limited mobility due to present condition * At risk for pressure sore * B/L hands contraction * Unable to communicate her needs Suggestion * GI consult would be appropriate re PEG and its possible removal/replacement * IVF hydration * Promote skin integrity * Aspiration precautions Palliative care will continue to fallow up with patient and her family, based on patient's progress. Will update goals of care. Thank you very much for including me in care of this patient.
[2016-12-27] MEDS: Enoxaparin 30 mg Syringe SC SCH (11:16)
[2016-12-27] MEDS: Epoetin Alfa 10,000 unit/ml Dialysis SC SCH (11:16)
--- NOTE | 2016-12-27 12:07 | CP.PCM.PN ---
Subjective - Date & Time of Evaluation Date of Evaluation: 12/27/16 Time of Evaluation: 09:00 - Subjective Subjective: less lethargic cultures pending IV rx reordered Objective - Vital Signs/Intake and Output Vital Signs (last 24 hours): Temp Pulse Resp BP Pulse Ox 97.4 F L 76 26 H 85/42 L 100 12/27/16 08:00 12/27/16 11:03 12/27/16 11:03 12/27/16 11:03 12/27/16 11:03 Intake and Output: 12/27/16 12/27/16 06:59 18:59 Intake Total 2100 800 Output Total 650 220 Balance 1450 580 - Medications Medications: Current Medications Acetaminophen (Tylenol 325mg Tab) 650 mg PO Q4H PRN PRN Reason: Pain, Mild (1-3) Acetylcysteine (Acetylcysteine 20%) 4 ml IH RQID [facility] Last Admin: 12/27/16 07:28 Dose: 4 ml Albuterol/Ipratropium (Duoneb 3 Mg/0.5 Mg (3 Ml) Ud) 3 ml INH RQID [facility] Last Admin: 12/27/16 07:28 Dose: 3 ml Bacitracin (Bacitracin) 0 gm TOP Q8H [facility] Last Admin: 12/27/16 09:00 Dose: 1 applic Collagenase (Santyl) 1 gm EXT Q8H [facility] Last Admin: 12/27/16 08:18 Dose: 1 gm Enoxaparin Sodium (Lovenox) 30 mg SC DAILY [facility] Last Admin: 12/27/16 11:16 Dose: 30 mg Epoetin Eddy (Procrit) 10,000 unit SC MWF [facility] Last Admin: 12/27/16 11:16 Dose: 10,000 unit Folic Acid (Folic Acid) 1 mg PEG DAILY [facility] Last Admin: 12/27/16 11:16 Dose: 1 mg Guaifenesin (Robitussin) 100 mg PO Q4H PRN PRN Reason: Cough Meropenem 1 gm/ Sodium (Chloride) 100 mls @ 100 mls/hr IVPB Q8 [facility] Last Admin: 12/27/16 05:00 Dose: 100 mls/hr Azithromycin 500 mg/ Sodium (Chloride) 250 mls @ 250 mls/hr IVPB DAILY [facility] Last Admin: 12/26/16 21:21 Dose: 250 mls/hr Vancomycin HCl 1 gm/ Sodium (Chloride) 250 mls @ 166.6 mls/hr IVPB Q12H [facility] Stop: 01/01/17 06:01 Last Admin: 12/27/16 06:05 Dose: 166.6 mls/hr Dextrose (Dextrose 5% In Water 1000 Ml) 1,000 mls @ 145 mls/hr IV .Q6H54M [facility] Potassium Chloride (Potassium Chloride 10 Meq/100 Ml) 10 meq in 100 mls @ 100 mls/hr IVPB Q2H [facility] Stop: 12/27/16 13:59 Last Admin: 12/27/16 11:15 Dose: 100 mls/hr Insulin Human Regular (Novolin R) 0 unit SC Q6H [facility] PRN Reason: Protocol Last Admin: 12/27/16 06:02 Dose: 5 unit Magnesium Hydroxide (Milk Of Magnesia) 30 ml PEG DAILY PRN PRN Reason: Constipation Pantoprazole Sodium (Protonix Susp) 40 mg PEG DAILY [facility] Last Admin: 12/27/16 11:16 Dose: 40 mg Silver Sulfadiazine (Silvadene 1% 20 Gm) 0.02 ea TOP Q8H [facility] Last Admin: 12/27/16 08:18 Dose: 1 gm - Labs Labs: 12/27/16 06:18 12/27/16 06:17 PT 14.4 SECONDS (9.7-12.2) H 12/26/16 14:35 INR 1.3 12/26/16 14:35 APTT 33 SECONDS (21-34) 12/26/16 14:35 - Constitutional Appears: Non-toxic, Cachectic, Chronically Ill - Head Exam Head Exam: NORMOCEPHALIC - Eye Exam Eye Exam: PERRL. absent: Scleral icterus - ENT Exam ENT Exam: Mucous Membranes Dry - Neck Exam Neck Exam: absent: Lymphadenopathy - Respiratory Exam Respiratory Exam: Decreased Breath Sounds, Rhonchi - Cardiovascular Exam Cardiovascular Exam: REGULAR RHYTHM, +S1, +S2 - GI/Abdominal Exam GI & Abdominal Exam: Distended, Soft Additional comments: gt site noted - Rectal Exam Rectal Exam: Deferred - Exam Exam: NORMAL INSPECTION - Extremities Exam Extremities Exam: absent: Pedal Edema - Back Exam Back Exam: absent: CVA tenderness (L), CVA tenderness (R) - Neurological Exam Neurological Exam: Alert, Altered, Awake Assessment and Plan (1) Acute hypernatremia Status: Acute (2) Blood bacterial culture positive Status: Acute (3) COPD with lower respiratory infection Status: Acute (4) CVA (cerebral vascular accident) Status: Acute (5) Pneumonia Status: Acute (6) Sepsis Status: Acute (7) Sepsis with metabolic encephalopathy Status: Acute (8) Septic shock Status: Acute - Assessment and Plan (Free Text) Assessment: severe sepsis infected gt site pneumonia cont iv antbiotics
[2016-12-27] MEDS: Azithromycin 500 MG in Sodium Chloride 0.9% 250 ML IVPB SCH (12:34)
--- NOTE | 2016-12-27 13:25 | CP.CCUPN ---
CCU Subjective - Physician Review Subjective (Free Text): 12/27/16 13:25 PGY- 1 progress note Pt seen and examined at bedside. There were no overnight events. Pt is alert but altered. Does not respond to questions. Critical Care Time Spent (in minutes): 35 CCU Objective - Vital Signs / Intake & Output Vital Signs (Last 4 hours): Vital Signs Pulse Resp BP Pulse Ox 12/27/16 11:03 76 26 H 85/42 L 100 12/27/16 10:03 89 29 H 86/44 L 100 Intake and Output (Last 8hrs): Intake & Output 12/26/16 12/27/16 12/27/16 22:59 06:59 14:59 Intake Total 650 1450 800 Output Total 235 490 220 Balance 415 960 580 Weight 189 lb 9.561 oz Intake: Intake, IV Amount 650 1450 700 Right Hand 100 Right Upper arm 650 1450 600 Other 100 Output: Urine 235 490 220 Urethral (Zambrano) 235 490 220 Other: # Bowel Movements 1 - Physical Exam Head: Positive for: Atraumatic, Normocephalic Pupils: Positive for: PERRL Respiratory/Chest: Positive for: Clear to Auscultation, Good Air Exchange Cardiovascular: Positive for: Normal S1, S2 Abdomen: Positive for: Normal Bowel Sounds. Negative for: Distention Upper Extremity: Positive for: NORMAL PULSES, Neurovascularly Intact Lower Extremity: Positive for: NORMAL PULSES, Neurovascularly Intact Skin: Positive for: Warm, Dry Psychiatric: Positive for: Alert. Negative for: Oriented x 3 - Medications Active Medications: Active Medications Generic Name Dose Route Start Last Admin Trade Name Freq PRN Reason Stop Dose Admin Acetaminophen 650 mg 12/27/16 08:00 Tylenol 325mg Tab PO Q4H PRN Pain, Mild (1-3) Acetylcysteine 4 ml 12/27/16 08:00 12/27/16 13:11 Acetylcysteine 20% IH 4 ml RQID [facility] Administration Albuterol/Ipratropium 3 ml 12/26/16 18:00 12/27/16 13:11 Duoneb 3 Mg/0.5 Mg (3 Ml) Ud INH 3 ml RQID [facility] Administration Bacitracin 0 gm 12/27/16 09:15 12/27/16 09:00 Bacitracin TOP 1 applic Q8H [facility] Administration Collagenase 1 gm 12/26/16 16:45 12/27/16 08:18 Santyl EXT 1 gm Q8H [facility] Administration Enoxaparin Sodium 30 mg 12/27/16 10:00 12/27/16 11:16 Lovenox SC 30 mg DAILY [facility] Administration Epoetin Eddy 10,000 unit 12/27/16 09:00 12/27/16 11:16 Procrit SC 10,000 unit MWF [facility] Administration Folic Acid 1 mg 12/27/16 10:00 12/27/16 11:16 Folic Acid PEG 1 mg DAILY [facility] Administration Guaifenesin 100 mg 12/26/16 16:15 Robitussin PO Q4H PRN Cough Meropenem 1 gm/ Sodium 100 mls @ 100 mls/hr 12/26/16 17:00 12/27/16 05:00 Chloride IVPB 100 mls/hr Q8 [facility] Administration Azithromycin 500 mg/ Sodium 250 mls @ 250 mls/hr 12/26/16 17:00 12/27/16 12: 34 Chloride IVPB 250 mls/hr DAILY [facility] Administration Vancomycin HCl 1 gm/ Sodium 250 mls @ 166.6 mls/hr 12/27/16 06:00 12/27/16 06 :05 Chloride IVPB 01/01/17 06:01 166.6 mls/hr Q12H [facility] Administration Dextrose 1,000 mls @ 145 mls/hr 12/27/16 10:17 Dextrose 5% In Water 1000 Ml IV .Q6H54M [facility] Potassium Chloride 10 meq in 100 mls @ 100 mls/hr 12/27/16 11:00 12/27/16 11: 15 Potassium Chloride 10 Meq/100 Ml IVPB 12/27/16 13:59 100 mls/hr Q2H [facility] Administration Insulin Human Regular 0 unit 12/26/16 18:00 12/27/16 12:35 Novolin R SC 2 unit Q6H [facility] Administration Protocol Magnesium Hydroxide 30 ml 12/26/16 16:14 Milk Of Magnesia PEG DAILY PRN Constipation Pantoprazole Sodium 40 mg 12/27/16 10:00 12/27/16 11:16 Protonix Susp PEG 40 mg DAILY [facility] Administration Silver Sulfadiazine 0.02 ea 12/26/16 16:45 12/27/16 08:18 Silvadene 1% 20 Gm TOP 1 gm Q8H [facility] Administration - Patient Studies Lab Studies: Lab Studies 12/27/16 12/27/16 12/27/16 Range/Units 11:42 06:18 06:17 WBC 10.3 (4.8-10.8) K/uL RBC 2.73 L (3.80-5.20) Mil/uL Hgb 7.5 L D (11.0-16.0) g/dL Hct 25.6 L (34.0-47.0) % MCV 93.7 (81.0-99.0) fL MCH 27.5 (27.0-31.0) pg MCHC 29.4 L (33.0-37.0) g/dL RDW 20.0 H (11.5-14.5) % Plt Count 106 L D (130-400) K/uL MPV 13.5 H (7.2-11.7) fL Neut % (Auto) 88.8 H (50.0-75.0) % Lymph % (Auto) 9.0 L (20.0-40.0) % [place] % (Auto) 1.7 (0.0-10.0) % Eos % (Auto) 0.3 (0.0-4.0) % Baso % (Auto) 0.2 (0.0-2.0) % Neut # 9.1 H (1.8-7.0) K/uL Lymph # 0.9 L (1.0-4.3) K/uL [place] # 0.2 (0.0-0.8) K/uL Eos # 0.0 (0.0-0.7) K/uL Baso # 0.0 (0.0-0.2) K/uL Neutrophils % (Manual) 58 (50-75) % Band Neutrophils % 29 H* (0-2) % Lymphocytes % (Manual) 12 L (20-40) % Monocytes % (Manual) 1 (0-10) % Platelet Estimate Slightly decreased L (NORMAL) Hypochromasia (manual) Slight Anisocytosis (manual) Moderate Microcytosis (manual) Slight Puncture Site pCO2 (35-45) mm/Hg pO2 (80-100) mm/Hg HCO3 (21-28) mmol/L ABG pH (7.35-7.45) ABG Total CO2 (22-28) mmol/L ABG O2 Saturation (95-98) % ABG Base Excess (-2.0-3.0) mmol/L Marcos Test ABG Potassium (3.6-5.2) mmol/L A-a O2 Difference mm/Hg Respiratory Index Sodium 172 H* (132-148) mmol/l Chloride 134 H (98-107) mmol/L Glucose (65-105) mg/dl Lactate (0.7-2.1) mmol/L FiO2 % Crit Value Called To Crit Value Called By Crit Value Read Back Blood Gas Notified Time Potassium 3.1 L (3.6-5.2) mmol/L Carbon Dioxide 29 (22-30) mmol/L Anion Gap 12 (10-20) BUN 106 H* (7-17) mg/dL Creatinine 1.0 (0.7-1.2) MG/DL Est GFR ( Amer) > 60 Est GFR (Non-Af Amer) 53 POC Glucose (mg/dL) 246 H (65-110) mg/dL Random Glucose 287 H (65-105) mg/dL Calcium 6.9 L (8.6-10.4) mg/dl Phosphorus 3.4 (2.5-4.5) mg/dL Magnesium 3.4 H (1.6-2.3) mg/dL Total Bilirubin 0.2 (0.2-1.3) mg/dL AST 35 (14-36) U/L ALT 35 (9-52) U/L Alkaline Phosphatase 83 (38-126) U/L Total Protein 5.6 L (6.3-8.3) g/dL Albumin 2.0 L D (3.5-5.0) g/dL Globulin 3.6 (2.2-3.9) gm/dL Albumin/Globulin Ratio 0.6 L (1.0-2.1) Arterial Blood Potassium (3.6-5.2) mmol/L Urine Color (YELLOW) Urine Clarity (Clear) Urine pH (5.0-8.0) Ur Specific [place] (1.003-1.030) Urine Protein (NEGATIVE) mg/dL Urine Glucose (UA) (Normal) mg/dL Urine Ketones (NEGATIVE) mg/dL Urine Blood (NEGATIVE) Urine Nitrate (NEGATIVE) Urine Bilirubin (NEGATIVE) Urine Urobilinogen (0.2-1.0) mg/dL Ur Leukocyte Esterase (Negative) Igor/uL Urine WBC (Auto) (0-5) /hpf Urine RBC (Auto) (0-3) /hpf Ur Squamous Epith Cells (0-5) /hpf Urine Bacteria (<OCC) 12/27/16 12/27/16 12/27/16 Range/Units 05:37 00:30 00:29 WBC (4.8-10.8) K/uL RBC (3.80-5.20) Mil/uL Hgb (11.0-16.0) g/dL Hct (34.0-47.0) % MCV (81.0-99.0) fL MCH (27.0-31.0) pg MCHC (33.0-37.0) g/dL RDW (11.5-14.5) % Plt Count (130-400) K/uL MPV (7.2-11.7) fL Neut % (Auto) (50.0-75.0) % Lymph % (Auto) (20.0-40.0) % [place] % (Auto) (0.0-10.0) % Eos % (Auto) (0.0-4.0) % Baso % (Auto) (0.0-2.0) % Neut # (1.8-7.0) K/uL Lymph # (1.0-4.3) K/uL [place] # (0.0-0.8) K/uL Eos # (0.0-0.7) K/uL Baso # (0.0-0.2) K/uL Neutrophils % (Manual) (50-75) % Band Neutrophils % (0-2) % Lymphocytes % (Manual) (20-40) % Monocytes % (Manual) (0-10) % Platelet Estimate (NORMAL) Hypochromasia (manual) Anisocytosis (manual) Microcytosis (manual) Puncture Site pCO2 (35-45) mm/Hg pO2 (80-100) mm/Hg HCO3 (21-28) mmol/L ABG pH (7.35-7.45) ABG Total CO2 (22-28) mmol/L ABG O2 Saturation (95-98) % ABG Base Excess (-2.0-3.0) mmol/L Marcos Test ABG Potassium (3.6-5.2) mmol/L A-a O2 Difference mm/Hg Respiratory Index Sodium 177 H* (132-148) mmol/l Chloride 135 H (98-107) mmol/L Glucose (65-105) mg/dl Lactate (0.7-2.1) mmol/L FiO2 % Crit Value Called To Crit Value Called By Crit Value Read Back Blood Gas Notified Time Potassium 2.9 L (3.6-5.2) mmol/L Carbon Dioxide 33 H (22-30) mmol/L Anion Gap 12 (10-20) BUN 112 H* (7-17) mg/dL Creatinine 1.2 (0.7-1.2) MG/DL Est GFR ( Amer) 52 Est GFR (Non-Af Amer) 43 POC Glucose (mg/dL) 380 H 263 H (65-110) mg/dL Random Glucose 208 H (65-105) mg/dL Calcium 6.9 L (8.6-10.4) mg/dl Phosphorus 4.0 (2.5-4.5) mg/dL Magnesium 3.6 H (1.6-2.3) mg/dL Total Bilirubin (0.2-1.3) mg/dL AST (14-36) U/L ALT (9-52) U/L Alkaline Phosphatase (38-126) U/L Total Protein (6.3-8.3) g/dL Albumin (3.5-5.0) g/dL Globulin (2.2-3.9) gm/dL Albumin/Globulin Ratio (1.0-2.1) Arterial Blood Potassium (3.6-5.2) mmol/L Urine Color (YELLOW) Urine Clarity (Clear) Urine pH (5.0-8.0) Ur Specific [place] (1.003-1.030) Urine Protein (NEGATIVE) mg/dL Urine Glucose (UA) (Normal) mg/dL Urine Ketones (NEGATIVE) mg/dL Urine Blood (NEGATIVE) Urine Nitrate (NEGATIVE) Urine Bilirubin (NEGATIVE) Urine Urobilinogen (0.2-1.0) mg/dL Ur Leukocyte Esterase (Negative) Igor/uL Urine WBC (Auto) (0-5) /hpf Urine RBC (Auto) (0-3) /hpf Ur Squamous Epith Cells (0-5) /hpf Urine Bacteria (<OCC) 12/26/16 12/26/16 Range/Units 22:20 16:50 WBC (4.8-10.8) K/uL RBC (3.80-5.20) Mil/uL Hgb (11.0-16.0) g/dL Hct (34.0-47.0) % MCV (81.0-99.0) fL MCH (27.0-31.0) pg MCHC (33.0-37.0) g/dL RDW (11.5-14.5) % Plt Count (130-400) K/uL MPV (7.2-11.7) fL Neut % (Auto) (50.0-75.0) % Lymph % (Auto) (20.0-40.0) % [place] % (Auto) (0.0-10.0) % Eos % (Auto) (0.0-4.0) % Baso % (Auto) (0.0-2.0) % Neut # (1.8-7.0) K/uL Lymph # (1.0-4.3) K/uL [place] # (0.0-0.8) K/uL Eos # (0.0-0.7) K/uL Baso # (0.0-0.2) K/uL Neutrophils % (Manual) (50-75) % Band Neutrophils % (0-2) % Lymphocytes % (Manual) (20-40) % Monocytes % (Manual) (0-10) % Platelet Estimate (NORMAL) Hypochromasia (manual) Anisocytosis (manual) Microcytosis (manual) Puncture Site Rra pCO2 64 H (35-45) mm/Hg pO2 116 H (80-100) mm/Hg HCO3 31.5 H (21-28) mmol/L ABG pH 7.36 (7.35-7.45) ABG Total CO2 38.2 H (22-28) mmol/L ABG O2 Saturation 99.6 H (95-98) % ABG Base Excess 8.4 H (-2.0-3.0) mmol/L Marcos Test Po ABG Potassium 3.2 L (3.6-5.2) mmol/L A-a O2 Difference 517.0 mm/Hg Respiratory Index 4.5 Sodium 182.0 H* (132-148) mmol/l Chloride 148.0 H (98-107) mmol/L Glucose 216 H (65-105) mg/dl Lactate 2.0 (0.7-2.1) mmol/L FiO2 100.0 % Crit Value Called To Dr thompson Crit Value Called By Kimberley schmitt Crit Value Read Back Y Blood Gas Notified Time 1655 Potassium (3.6-5.2) mmol/L Carbon Dioxide (22-30) mmol/L Anion Gap (10-20) BUN (7-17) mg/dL Creatinine (0.7-1.2) MG/DL Est GFR ( Amer) Est GFR (Non-Af Amer) POC Glucose (mg/dL) (65-110) mg/dL Random Glucose (65-105) mg/dL Calcium (8.6-10.4) mg/dl Phosphorus (2.5-4.5) mg/dL Magnesium (1.6-2.3) mg/dL Total Bilirubin (0.2-1.3) mg/dL AST (14-36) U/L ALT (9-52) U/L Alkaline Phosphatase (38-126) U/L Total Protein (6.3-8.3) g/dL Albumin (3.5-5.0) g/dL Globulin (2.2-3.9) gm/dL Albumin/Globulin Ratio (1.0-2.1) Arterial Blood Potassium 3.2 L (3.6-5.2) mmol/L Urine Color Yellow (YELLOW) Urine Clarity Hazy (Clear) Urine pH 5.0 (5.0-8.0) Ur Specific [place] 1.020 (1.003-1.030) Urine Protein 1+ H (NEGATIVE) mg/dL Urine Glucose (UA) Normal (Normal) mg/dL Urine Ketones Negative (NEGATIVE) mg/dL Urine Blood Negative (NEGATIVE) Urine Nitrate Negative (NEGATIVE) Urine Bilirubin Negative (NEGATIVE) Urine Urobilinogen Normal (0.2-1.0) mg/dL Ur Leukocyte Esterase Neg (Negative) Igor/uL Urine WBC (Auto) 22 H (0-5) /hpf Urine RBC (Auto) 6 H (0-3) /hpf Ur Squamous Epith Cells 1 (0-5) /hpf Urine Bacteria Few H (<OCC) Laboratory Results - last 24 hr 12/26/16 12/26/16 12/27/16 16:50 22:20 00:29 WBC RBC Hgb Hct MCV MCH MCHC RDW Plt Count MPV Neut % (Auto) Lymph % (Auto) [place] % (Auto) Eos % (Auto) Baso % (Auto) Neut # Lymph # [place] # Eos # Baso # Neutrophils % (Manual) Band Neutrophils % Lymphocytes % (Manual) Monocytes % (Manual) Platelet Estimate Hypochromasia (manual) Anisocytosis (manual) Microcytosis (manual) Puncture Site Rra pCO2 64 H pO2 116 H HCO3 31.5 H ABG pH 7.36 ABG Total CO2 38.2 H ABG O2 Saturation 99.6 H ABG Base Excess 8.4 H Marcos Test Po ABG Potassium 3.2 L A-a O2 Difference 517.0 Respiratory Index 4.5 Sodium 182.0 H* 177 H* Chloride 148.0 H 135 H Glucose 216 H Lactate 2.0 FiO2 100.0 Crit Value Called To Dr thompson Crit Value Called By Kimberley schmitt Crit Value Read Back Y Blood Gas Notified Time 1655 Potassium 2.9 L Carbon Dioxide 33 H Anion Gap 12 BUN 112 H* Creatinine 1.2 Est GFR ( Amer) 52 Est GFR (Non-Af Amer) 43 POC Glucose (mg/dL) Random Glucose 208 H Calcium 6.9 L Phosphorus 4.0 Magnesium 3.6 H Total Bilirubin AST ALT Alkaline Phosphatase Total Protein Albumin Globulin Albumin/Globulin Ratio Arterial Blood Potassium 3.2 L Urine Color Yellow Urine Clarity Hazy Urine pH 5.0 Ur Specific [place] 1.020 Urine Protein 1+ H Urine Glucose (UA) Normal Urine Ketones Negative Urine Blood Negative Urine Nitrate Negative Urine Bilirubin Negative Urine Urobilinogen Normal Ur Leukocyte Esterase Neg Urine WBC (Auto) 22 H Urine RBC (Auto) 6 H Ur Squamous Epith Cells 1 Urine Bacteria Few H 12/27/16 12/27/16 12/27/16 00:30 05:37 06:17 WBC RBC Hgb Hct MCV MCH MCHC RDW Plt Count MPV Neut % (Auto) Lymph % (Auto) [place] % (Auto) Eos % (Auto) Baso % (Auto) Neut # Lymph # [place] # Eos # Baso # Neutrophils % (Manual) Band Neutrophils % Lymphocytes % (Manual) Monocytes % (Manual) Platelet Estimate Hypochromasia (manual) Anisocytosis (manual) Microcytosis (manual) Puncture Site pCO2 pO2 HCO3 ABG pH ABG Total CO2 ABG O2 Saturation ABG Base Excess Marcos Test ABG Potassium A-a O2 Difference Respiratory Index Sodium 172 H* Chloride 134 H Glucose Lactate FiO2 Crit Value Called To Crit Value Called By Crit Value Read Back Blood Gas Notified Time Potassium 3.1 L Carbon Dioxide 29 Anion Gap 12 BUN 106 H* Creatinine 1.0 Est GFR ( Amer) > 60 Est GFR (Non-Af Amer) 53 POC Glucose (mg/dL) 263 H 380 H Random Glucose 287 H Calcium 6.9 L Phosphorus 3.4 Magnesium 3.4 H Total Bilirubin 0.2 AST 35 ALT 35 Alkaline Phosphatase 83 Total Protein 5.6 L Albumin 2.0 L D Globulin 3.6 Albumin/Globulin Ratio 0.6 L Arterial Blood Potassium Urine Color Urine Clarity Urine pH Ur Specific [place] Urine Protein Urine Glucose (UA) Urine Ketones Urine Blood Urine Nitrate Urine Bilirubin Urine Urobilinogen Ur Leukocyte Esterase Urine WBC (Auto) Urine RBC (Auto) Ur Squamous Epith Cells Urine Bacteria 12/27/16 12/27/16 06:18 11:42 WBC 10.3 RBC 2.73 L Hgb 7.5 L D Hct 25.6 L MCV 93.7 MCH 27.5 MCHC 29.4 L RDW 20.0 H Plt Count 106 L D MPV 13.5 H Neut % (Auto) 88.8 H Lymph % (Auto) 9.0 L [place] % (Auto) 1.7 Eos % (Auto) 0.3 Baso % (Auto) 0.2 Neut # 9.1 H Lymph # 0.9 L [place] # 0.2 Eos # 0.0 Baso # 0.0 Neutrophils % (Manual) 58 Band Neutrophils % 29 H* Lymphocytes % (Manual) 12 L Monocytes % (Manual) 1 Platelet Estimate Slightly decreased L Hypochromasia (manual) Slight Anisocytosis (manual) Moderate Microcytosis (manual) Slight Puncture Site pCO2 pO2 HCO3 ABG pH ABG Total CO2 ABG O2 Saturation ABG Base Excess Marcos Test ABG Potassium A-a O2 Difference Respiratory Index Sodium Chloride Glucose Lactate FiO2 Crit Value Called To Crit Value Called By Crit Value Read Back Blood Gas Notified Time Potassium Carbon Dioxide Anion Gap BUN Creatinine Est GFR ( Amer) Est GFR (Non-Af Amer) POC Glucose (mg/dL) 246 H Random Glucose Calcium Phosphorus Magnesium Total Bilirubin AST ALT Alkaline Phosphatase Total Protein Albumin Globulin Albumin/Globulin Ratio Arterial Blood Potassium Urine Color Urine Clarity Urine pH Ur Specific [place] Urine Protein Urine Glucose (UA) Urine Ketones Urine Blood Urine Nitrate Urine Bilirubin Urine Urobilinogen Ur Leukocyte Esterase Urine WBC (Auto) Urine RBC (Auto) Ur Squamous Epith Cells Urine Bacteria Fingerstick Blood Sugar Results: 246 Review of Systems - Review of Systems Systems not reviewed;Unavailable: Acuity of Condition Assessment/Plan - Assessment and Plan (Free Text) Assessment: This is an 81 yo F with severe sepsis complicated by hypovolemic hypernatremia in the setting of acute on chronic kidney failure. Plan: Neuro: obtunded metabolic encephalopathy Palliative care consulted Pulm: Healthcare associated pneumonia, continue duonebs, guaifenesin, chest PT. Pt on BiPAP Chest x-ray is deceiving, previous CT chest shows large boot shaped heart taking up most of left lower lung space, chronic dependent atelectasis with probable underlying pneumonia. CV: Mild hypotension, responsive to fluids. Stable Hem: Anemia of chronic disease, continue Procrit Renal: Acute on chronic kidney disease, prerenal state hypovolemic state, severe hypovolemic hypernatremia. Changed D5W to 145 ml/hr with goal of reducing Na by ~10mmol over next 24 hours - Na 172 this AM Endo: Questionable diabetes, will check hemoglobin A1c on AM labs GI: Nothing by mouth ID: Severe sepsis from multiple sources, healthcare associated pneumonia, sacral decubitus, PEG Site infection. Abx changed to Vanco and Meropenum per ID DVT proph - heparin subcutaneous GI proph - Protonix zambrano for strict I/O's during acute illness Code status - DNR/DNI Patient appears gravely ill, poor prognosis with high mortality risk.
--- NOTE | 2016-12-27 14:12 | CP.PCM.PN ---
Subjective - Date & Time of Evaluation Date of Evaluation: 12/27/16 Time of Evaluation: 16:00 - Subjective Subjective: clinically same Objective - Vital Signs/Intake and Output Vital Signs (last 24 hours): Temp Pulse Resp BP Pulse Ox 97.4 F L 88 26 H 85/42 L 100 12/27/16 08:00 12/27/16 13:14 12/27/16 11:03 12/27/16 11:03 12/27/16 11:03 Intake and Output: 12/27/16 12/27/16 06:59 18:59 Intake Total 2100 800 Output Total 650 220 Balance 1450 580 - Medications Medications: Current Medications Acetaminophen (Tylenol 325mg Tab) 650 mg PO Q4H PRN PRN Reason: Pain, Mild (1-3) Acetylcysteine (Acetylcysteine 20%) 4 ml IH RQID [facility] Last Admin: 12/27/16 13:11 Dose: 4 ml Albuterol/Ipratropium (Duoneb 3 Mg/0.5 Mg (3 Ml) Ud) 3 ml INH RQID [facility] Last Admin: 12/27/16 13:11 Dose: 3 ml Bacitracin (Bacitracin) 0 gm TOP Q8H [facility] Last Admin: 12/27/16 09:00 Dose: 1 applic Collagenase (Santyl) 1 gm EXT Q8H [facility] Last Admin: 12/27/16 08:18 Dose: 1 gm Enoxaparin Sodium (Lovenox) 30 mg SC DAILY [facility] Last Admin: 12/27/16 11:16 Dose: 30 mg Epoetin Eddy (Procrit) 10,000 unit SC MWF [facility] Last Admin: 12/27/16 11:16 Dose: 10,000 unit Folic Acid (Folic Acid) 1 mg PEG DAILY [facility] Last Admin: 12/27/16 11:16 Dose: 1 mg Guaifenesin (Robitussin) 100 mg PO Q4H PRN PRN Reason: Cough Meropenem 1 gm/ Sodium (Chloride) 100 mls @ 100 mls/hr IVPB Q8 [facility] Last Admin: 12/27/16 05:00 Dose: 100 mls/hr Azithromycin 500 mg/ Sodium (Chloride) 250 mls @ 250 mls/hr IVPB DAILY [facility] Last Admin: 12/27/16 12:34 Dose: 250 mls/hr Vancomycin HCl 1 gm/ Sodium (Chloride) 250 mls @ 166.6 mls/hr IVPB Q12H [facility] Stop: 01/01/17 06:01 Last Admin: 12/27/16 06:05 Dose: 166.6 mls/hr Dextrose (Dextrose 5% In Water 1000 Ml) 1,000 mls @ 145 mls/hr IV .Q6H54M [facility] Insulin Human Regular (Novolin R) 0 unit SC Q6H [facility] PRN Reason: Protocol Last Admin: 12/27/16 12:35 Dose: 2 unit Magnesium Hydroxide (Milk Of Magnesia) 30 ml PEG DAILY PRN PRN Reason: Constipation Pantoprazole Sodium (Protonix Susp) 40 mg PEG DAILY [facility] Last Admin: 12/27/16 11:16 Dose: 40 mg Silver Sulfadiazine (Silvadene 1% 20 Gm) 0.02 ea TOP Q8H [facility] Last Admin: 12/27/16 08:18 Dose: 1 gm - Labs Labs: 12/27/16 06:18 12/27/16 06:17 PT 14.4 SECONDS (9.7-12.2) H 12/26/16 14:35 INR 1.3 12/26/16 14:35 APTT 33 SECONDS (21-34) 12/26/16 14:35 - Constitutional Appears: Well - Head Exam Head Exam: ATRAUMATIC, NORMAL INSPECTION, NORMOCEPHALIC - Eye Exam Eye Exam: EOMI, Normal appearance, PERRL Pupil Exam: NORMAL ACCOMODATION, PERRL - ENT Exam ENT Exam: Mucous Membranes Moist, Normal Exam - Neck Exam Neck Exam: Full ROM, Normal Inspection. absent: Lymphadenopathy - Respiratory Exam Respiratory Exam: Decreased Breath Sounds - Cardiovascular Exam Cardiovascular Exam: REGULAR RHYTHM, +S1, +S2 - GI/Abdominal Exam GI & Abdominal Exam: Soft, Diminished Bowel Sounds - Rectal Exam Rectal Exam: Deferred Assessment and Plan (1) Acute hypernatremia Status: Acute (2) Blood bacterial culture positive Status: Acute (3) COPD with lower respiratory infection Status: Acute (4) CVA (cerebral vascular accident) Status: Acute (5) Cellulitis Status: Acute (6) Contusion Status: Acute (7) Dehydration Status: Acute (8) Fever and chills Status: Acute (9) Gastrostomy tube obstruction Status: Acute (10) Hypernatremia Status: Acute (11) PEG (percutaneous endoscopic gastrostomy) adjustment/replacement/removal Status: Acute (12) Physical debility Status: Acute (13) Pneumonia Status: Acute (14) Pneumonia Status: Acute (15) Sacral decubitus ulcer, stage III Status: Acute (16) Senile debility Status: Acute (17) Sepsis Status: Acute (18) Sepsis Status: Acute (19) Sepsis with metabolic encephalopathy Status: Acute (20) Septic shock Status: Acute (21) Abnormal CXR (chest x-ray) Status: Chronic (22) Aspiration into lower respiratory tract Status: Chronic (23) Dementia Status: Chronic - Assessment and Plan (Free Text) Plan: Consult ID Consult computational geneticist Consult satellite project site monitor Consult gastrologist Bacitracin DuoNeb Dextrose 5% Vancomycin Maxipime Zithromax Protonix Culture pending Follow-up with labs
--- NOTE | 2016-12-27 17:29 | CARD ---
APPROVED REPORT EKG Measurement Heart [id number] NH 86P2 [id number] <Conclusion> Poor data quality, interpretation may be adversely affected Sinus rhythm with sinus arrhythmia with short NH Left axis deviation Low voltage QRS Inferior infarct, age undetermined can not be excluded. Poor R wave progression. Abnormal ECG
[2016-12-28] MEDS: (Novolin R) Insulin Human Regular 100 units/ml vial SC SCH ×4 (00:15→18:19)
[2016-12-28] MEDS: Silver Sulfadiazine 1% Cream (20 gm) TOP SCH ×3 (00:45→16:42)
[2016-12-28] MEDS: Collagenase 250 Units/gm Ointment(30 gm) EXT SCH ×3 (00:45→16:42)
[2016-12-28] MEDS: Bacitracin Ointment 30 GM TUBE TOP SCH ×3 (01:15→16:42)
[2016-12-28] MEDS: Meropenem 1 GM in Sodium Chloride 0.9% 100 ML IVPB SCH ×3 (06:00→21:10)
[2016-12-28 06:16] LABS: BASO % 0.3 % (0.0-2.0); EOS # 0.3 K/uL (0.0-0.7); EOS % 2.7 % (0.0-4.0); LYMPH # 0.6 K/uL (1.0-4.3); LYMPH % 5.2 % (20.0-40.0); MEAN CORPUSCULAR HEMOGLOBIN 26.9 pg (27.0-31.0); MEAN CORPUSCULAR HGB CONC 28.7 g/dL (33.0-37.0); MEAN PLATELET VOLUME 13.4 fL (7.2-11.7); MONO # 0.3 K/uL (0.0-0.8); MONO % 2.6 % (0.0-10.0); NRBC % 0.1 % (0.0-2.0); PLATELET COUNT 97 K/uL (130-400); RED CELL DISTRIBUTION WIDTH 19.7 % (11.5-14.5); WHITE BLOOD COUNT 11.6 K/uL (4.8-10.8)
[2016-12-28 06:46] LABS: CHLORIDE 130 mmol/L (98-107); POTASSIUM 3.3 mmol/L (3.6-5.2)
[2016-12-28 06:48] LABS: BILIRUBIN,TOTAL < 0.1 mg/dL (0.2-1.3); GFR AFRICAN-AMERICAN > 60
[2016-12-28 06:49] LABS: ALB/GLOB RATIO 0.6 (1.0-2.1); ALKALINE PHOSPHATASE 90 U/L (38-126); ALT/SGPT 33 U/L (9-52); AST/SGOT 36 U/L (14-36); BLOOD UREA NITROGEN 79 mg/dL (7-17); CALCIUM 7.7 mg/dl (8.6-10.4); CARBON DIOXIDE 27 mmol/L (22-30); GLUCOSE,RANDOM 140 mg/dL (65-105); PHOSPHOROUS 4.5 mg/dL (2.5-4.5); TOTAL PROTEIN 5.7 g/dL (6.3-8.3)
[2016-12-28 06:50] LABS: MAGNESIUM 3.2 mg/dL (1.6-2.3)
[2016-12-28 06:56] LABS: SODIUM 165 mmol/L (132-148)
[2016-12-28] MEDS: Albuterol-Ipratrop 3 mg / 0.5 (3 ml) UD INH SCH ×4 (07:55→19:29)
[2016-12-28] MEDS: Acetylcysteine 20% Inhal Soln (4ml) IH SCH ×4 (07:55→19:29)
[2016-12-28 08:57] LABS: EOSINOPHIL 5 % (0-4); NEUTROPHIL 69 % (50-75); TOTAL CELLS COUNTED 100
[2016-12-28] MEDS: Enoxaparin 30 mg Syringe SC SCH (09:17)
[2016-12-28] MEDS ORDERED: Sodium Chloride 0.9% 1,000 ML IV ONE (09:27)
--- NOTE | 2016-12-28 09:27 | RAD ---
HISTORY: follow up, sob, pna COMPARISON: 12/26/2016 FINDINGS: LUNGS: Moderate left and small right pleural effusion. Consolidative changes in the left mid to lower lung zone and right lung base. PLEURA: As above. CARDIOVASCULAR: Cardiomegaly. OSSEOUS STRUCTURES: No significant abnormalities. VISUALIZED UPPER ABDOMEN: Normal. OTHER FINDINGS: None. IMPRESSION: No significant interval change.
--- NOTE | 2016-12-28 10:16 | CP.PCM.PN ---
Subjective - Date & Time of Evaluation Date of Evaluation: 12/28/16 Time of Evaluation: 08:00 - Subjective Subjective: afebrile on bipap confused and bed bound/ NAD Objective - Vital Signs/Intake and Output Vital Signs (last 24 hours): Temp Pulse Resp BP Pulse Ox 96 F L 81 17 88/63 L 100 12/27/16 16:00 12/28/16 07:56 12/27/16 19:05 12/27/16 19:05 12/27/16 19:05 Intake and Output: 12/28/16 12/28/16 06:59 18:59 Intake Total 1850 145 Output Total 365 30 Balance 1485 115 - Medications Medications: Current Medications Acetaminophen (Tylenol 325mg Tab) 650 mg PO Q4H PRN PRN Reason: Pain, Mild (1-3) Acetylcysteine (Acetylcysteine 20%) 4 ml IH RQID [facility] Last Admin: 12/28/16 07:55 Dose: 4 ml Albuterol/Ipratropium (Duoneb 3 Mg/0.5 Mg (3 Ml) Ud) 3 ml INH RQID [facility] Last Admin: 12/28/16 07:55 Dose: 3 ml Bacitracin (Bacitracin) 0 gm TOP Q8H [facility] Last Admin: 12/28/16 09:19 Dose: 1 applic Collagenase (Santyl) 1 gm EXT Q8H [facility] Last Admin: 12/28/16 09:19 Dose: 1 gm Enoxaparin Sodium (Lovenox) 30 mg SC DAILY [facility] Last Admin: 12/28/16 09:17 Dose: 30 mg Epoetin Eddy (Procrit) 10,000 unit SC MWF [facility] Last Admin: 12/27/16 11:16 Dose: 10,000 unit Folic Acid (Folic Acid) 1 mg PEG DAILY [facility] Last Admin: 12/28/16 09:24 Dose: Not Given Guaifenesin (Robitussin) 100 mg PO Q4H PRN PRN Reason: Cough Meropenem 1 gm/ Sodium (Chloride) 100 mls @ 100 mls/hr IVPB Q8 [facility] Last Admin: 12/28/16 06:00 Dose: 100 mls/hr Azithromycin 500 mg/ Sodium (Chloride) 250 mls @ 250 mls/hr IVPB DAILY [facility] Last Admin: 12/27/16 12:34 Dose: 250 mls/hr Sodium Chloride (Sodium Chloride 0.9%) 1,000 mls @ 1,000 mls/hr IV .Q1H ONE Stop: 12/28/16 10:26 Vancomycin HCl 1 gm/ Sodium (Chloride) 250 mls @ 166.6 mls/hr IVPB DAILY [facility] Stop: 01/01/17 06:01 Insulin Human Regular (Novolin R) 0 unit SC Q6H [facility] PRN Reason: Protocol Last Admin: 12/28/16 06:32 Dose: 1 unit Magnesium Hydroxide (Milk Of Magnesia) 30 ml PEG DAILY PRN PRN Reason: Constipation Pantoprazole Sodium (Protonix Inj) 40 mg IVP DAILY [facility] Last Admin: 12/28/16 09:17 Dose: 40 mg Silver Sulfadiazine (Silvadene 1% 20 Gm) 0.02 ea TOP Q8H [facility] Last Admin: 12/28/16 09:18 Dose: 1 gm - Labs Labs: 12/28/16 06:04 12/28/16 06:04 PT 14.4 SECONDS (9.7-12.2) H 12/26/16 14:35 INR 1.3 12/26/16 14:35 APTT 33 SECONDS (21-34) 12/26/16 14:35 - Constitutional Appears: Confused, Cachectic, Chronically Ill - Head Exam Head Exam: NORMOCEPHALIC - Eye Exam Eye Exam: PERRL. absent: Scleral icterus - ENT Exam ENT Exam: Mucous Membranes Dry - Neck Exam Neck Exam: absent: Lymphadenopathy - Respiratory Exam Respiratory Exam: Decreased Breath Sounds, Rhonchi - Cardiovascular Exam Cardiovascular Exam: REGULAR RHYTHM, +S1, +S2 - GI/Abdominal Exam GI & Abdominal Exam: Distended, Soft. absent: Tenderness - Rectal Exam Rectal Exam: Deferred - Exam Exam: NORMAL INSPECTION - Extremities Exam Extremities Exam: Pedal Edema. absent: Tenderness - Back Exam Back Exam: absent: CVA tenderness (L), CVA tenderness (R) - Neurological Exam Neurological Exam: Altered Neuro motor strength exam: Left Upper Extremity: 2/1, Right Upper Extremity: 2/1 , Left Lower Extremity: 2/1, Right Lower Extremity: 2/1 - Psychiatric Exam Psychiatric exam: Flat Affect - Skin Skin Exam: Dry Assessment and Plan (1) Acute hypernatremia Status: Acute (2) Blood bacterial culture positive Status: Acute (3) COPD with lower respiratory infection Status: Acute (4) CVA (cerebral vascular accident) Status: Acute (5) Pneumonia Status: Acute (6) Sepsis Status: Acute (7) Sepsis with metabolic encephalopathy Status: Acute (8) Septic shock Status: Acute - Assessment and Plan (Free Text) Assessment: sepsis resp failure pneumonia copd chf GT site infection vanco adjusted rx renewed discussed on rounds with Dr Rico in ICU
--- NOTE | 2016-12-28 11:30 | PCM.PROC ---
Procedures Attestation:: I certify that I have explained the specified Operation(s) or Procedure(s), risks, benefits and reasonable alternatives to the Patient and/or other person responsible. The opportunity was given to ask questions and all questions answered - Central Line Placement Right Internal Jugular Triple Lumen Catheter Aseptic technique was employed throughout the procedure: Hand Hygiene done prior to procedure, Full sterile barriers (mask, hair cover, sterile gown, sterile gloves), Full body sterile drape, Chloraprep Antiseptic: 30 second prep for IJ or SC sites Central Line Prep: Chlorhexidine-Alcohol Combination Local Anesthesia Used: Lidocaine 1% Ultrasound Used for Placement: Yes Central Line Lumen Inserted: triple Central Line Length: 16 cm Post Procedure: Sutured in Place, Good Blood Return, All Ports Aspirated, Flushed, Capped, Sterile Dressing Applied Secured by: Suture Post Procedure X-Ray: Yes Patient Tolerated Procedure: Well Immediate Complications: None
--- NOTE | 2016-12-28 11:43 | RAD ---
HISTORY: central line placement COMPARISON: Chest x-ray performed 12/28/16 TECHNIQUE: Chest, one view. FINDINGS: Right IJ approach central venous catheter extends to the expected location of the SVC. LUNGS: Small to moderate right pleural effusion. Left lower lobe and right middle lobe consolidations. No definite pneumothorax . Please note that chest x-ray has limited sensitivity for the detection of pulmonary masses. CARDIOVASCULAR: Cardiomegaly. Atherosclerotic calcifications of the aorta. OSSEOUS STRUCTURES: Degenerative changes of the spine and shoulders. VISUALIZED UPPER ABDOMEN: Unremarkable. OTHER FINDINGS: None. IMPRESSION: Right IJ approach central venous catheter extends to the expected location of the SVC. Small to moderate left pleural effusion. Left lower lobe and right middle lobe consolidations. Cardiomegaly. Atherosclerotic calcifications of the aorta.
[2016-12-28] MEDS: Azithromycin 500 MG in Sodium Chloride 0.9% 250 ML IVPB SCH (12:09)
--- NOTE | 2016-12-28 12:24 | CP.CCUPN ---
<Michi Parker - Last Filed: 12/28/16 15:27> CCU Subjective - Physician Review Subjective (Free Text): 12/28/16 12:18 PGY-1 progress note Pt seen and examined at bedside. Pt still on BiPAP. Alert but does not respond to questions. No events overnight Critical Care Time Spent (in minutes): 35 CCU Objective - Vital Signs / Intake & Output Vital Signs (Last 4 hours): Vital Signs Pulse Resp BP Pulse Ox 12/28/16 11:43 77 12/28/16 10:40 84 22 89/44 L 100 12/28/16 10:00 82 29 H 100 12/28/16 09:24 78 24 87/41 L 100 12/28/16 09:00 79 31 H 100 Intake and Output (Last 8hrs): Intake & Output 12/27/16 12/28/16 12/28/16 22:59 06:59 14:59 Intake Total 1437 1115 725 Output Total 280 260 105 Balance 1157 855 620 Weight 189 lb 9.561 oz Intake: Intake, IV Amount 1437 1115 725 Right Hand 145 145 Right Upper arm 1292 1115 580 Output: Urine 280 260 105 Urethral (Zambrano) 280 260 105 Other: # Bowel Movements 1 - Physical Exam Head: Positive for: Atraumatic, Normocephalic Pupils: Positive for: PERRL Respiratory/Chest: Positive for: Clear to Auscultation, Good Air Exchange Cardiovascular: Positive for: Normal S1, S2 Abdomen: Positive for: Normal Bowel Sounds. Negative for: Distention Upper Extremity: Positive for: NORMAL PULSES, Neurovascularly Intact Lower Extremity: Positive for: NORMAL PULSES, Neurovascularly Intact Skin: Positive for: Warm, Dry Psychiatric: Positive for: Alert. Negative for: Oriented x 3 - Medications Active Medications: Active Medications Generic Name Dose Route Start Last Admin Trade Name Freq PRN Reason Stop Dose Admin Acetaminophen 650 mg 12/28/16 10:15 Tylenol 325mg Tab PO Q4H PRN Pain, Mild (1-3) Acetylcysteine 4 ml 12/27/16 08:00 12/28/16 11:44 Acetylcysteine 20% IH 4 ml RQID PARK Administration Albuterol/Ipratropium 3 ml 12/26/16 18:00 12/28/16 11:42 Duoneb 3 Mg/0.5 Mg (3 Ml) Ud INH 3 ml RQID PARK Administration Bacitracin 0 gm 12/27/16 09:15 12/28/16 09:19 Bacitracin TOP 1 applic Q8H PARK Administration Collagenase 1 gm 12/26/16 16:45 12/28/16 09:19 Santyl EXT 1 gm Q8H PARK Administration Enoxaparin Sodium 30 mg 12/27/16 10:00 12/28/16 09:17 Lovenox SC 30 mg DAILY PARK Administration Epoetin Eddy 10,000 unit 12/27/16 09:00 12/27/16 11:16 Procrit SC 10,000 unit MWF PARK Administration Folic Acid 1 mg 12/27/16 10:00 12/28/16 09:24 Folic Acid PEG Not Given DAILY PARK Guaifenesin 100 mg 12/26/16 16:15 Robitussin PO Q4H PRN Cough Meropenem 1 gm/ Sodium 100 mls @ 100 mls/hr 12/26/16 17:00 12/28/16 06:00 Chloride IVPB 100 mls/hr Q8 PARK Administration Azithromycin 500 mg/ Sodium 250 mls @ 250 mls/hr 12/26/16 17:00 12/28/16 12: 09 Chloride IVPB 250 mls/hr DAILY PARK Administration Vancomycin HCl 1 gm/ Sodium 250 mls @ 166.6 mls/hr 12/28/16 10:00 Chloride IVPB 01/01/17 06:01 DAILY PARK Potassium Chloride 20 meq in 100 mls @ 50 mls/hr 12/28/16 11:04 12/28/16 11: 30 Potassium Chloride 20 Meq/100 Ml IVPB 12/28/16 13:03 50 mls/hr ONCE ONE Administration Insulin Human Regular 0 unit 12/26/16 18:00 12/28/16 12:10 Novolin R SC 2 unit Q6H PARK Administration Protocol Magnesium Hydroxide 30 ml 12/26/16 16:14 Milk Of Magnesia PEG DAILY PRN Constipation Pantoprazole Sodium 40 mg 12/28/16 10:00 12/28/16 09:17 Protonix Inj IVP 40 mg DAILY PARK Administration Silver Sulfadiazine 0.02 ea 12/26/16 16:45 12/28/16 09:18 Silvadene 1% 20 Gm TOP 1 gm Q8H PARK Administration - Patient Studies Lab Studies: Microbiology Studies 12/26/16 17:24 MRSA Culture (Admit) - Final Nose MRSA DETECTED 12/26/16 16:28 Wound Culture - Preliminary Abdomen Gram Negative Ranjeet Gram Negative Ranjeet#2 Gram Positive Cocci 12/26/16 16:00 Urine Culture - Final Urine,Catheterized No Growth (<1,000 CFU/ML) 12/26/16 18:00 Blood Culture - Preliminary Blood NO GROWTH AFTER 24 HOURS 12/26/16 18:00 Blood Culture - Preliminary Blood NO GROWTH AFTER 24 HOURS Lab Studies 12/28/16 12/28/16 12/28/16 Range/Units 11:49 07:00 06:25 WBC (4.8-10.8) K/uL RBC (3.80-5.20) Mil/uL Hgb (11.0-16.0) g/dL Hct (34.0-47.0) % MCV (81.0-99.0) fL MCH (27.0-31.0) pg MCHC (33.0-37.0) g/dL RDW (11.5-14.5) % Plt Count (130-400) K/uL MPV (7.2-11.7) fL Neut % (Auto) (50.0-75.0) % Lymph % (Auto) (20.0-40.0) % [place] % (Auto) (0.0-10.0) % Eos % (Auto) (0.0-4.0) % Baso % (Auto) (0.0-2.0) % Neut # (1.8-7.0) K/uL Lymph # (1.0-4.3) K/uL [place] # (0.0-0.8) K/uL Eos # (0.0-0.7) K/uL Baso # (0.0-0.2) K/uL Neutrophils % (Manual) (50-75) % Band Neutrophils % (0-2) % Lymphocytes % (Manual) (20-40) % Monocytes % (Manual) (0-10) % Eosinophils % (Manual) (0-4) % Platelet Estimate (NORMAL) Hypochromasia (manual) Poikilocytosis (manual Anisocytosis (manual) Target Cells Sodium (132-148) mmol/L Potassium (3.6-5.2) mmol/L Chloride (98-107) mmol/L Carbon Dioxide (22-30) mmol/L Anion Gap (10-20) BUN (7-17) mg/dL Creatinine (0.7-1.2) MG/DL Est GFR ( Amer) Est GFR (Non-Af Amer) POC Glucose (mg/dL) 244 H 180 H (65-110) mg/dL Random Glucose (65-105) mg/dL Hemoglobin A1c (4.2-6.5) % Calcium (8.6-10.4) mg/dl Phosphorus (2.5-4.5) mg/dL Magnesium (1.6-2.3) mg/dL Total Bilirubin (0.2-1.3) mg/dL AST (14-36) U/L ALT (9-52) U/L Alkaline Phosphatase (38-126) U/L Total Protein (6.3-8.3) g/dL Albumin (3.5-5.0) g/dL Globulin (2.2-3.9) gm/dL Albumin/Globulin Ratio (1.0-2.1) Random Vancomycin 22.95 ug/mL 12/28/16 12/28/16 12/28/16 Range/Units 06:05 06:04 06:04 WBC 11.6 H (4.8-10.8) K/uL RBC 2.87 L (3.80-5.20) Mil/uL Hgb 7.7 L (11.0-16.0) g/dL Hct 27.0 L (34.0-47.0) % MCV 94.0 (81.0-99.0) fL MCH 26.9 L (27.0-31.0) pg MCHC 28.7 L (33.0-37.0) g/dL RDW 19.7 H (11.5-14.5) % Plt Count 97 L (130-400) K/uL MPV 13.4 H (7.2-11.7) fL Neut % (Auto) 89.2 H (50.0-75.0) % Lymph % (Auto) 5.2 L (20.0-40.0) % [place] % (Auto) 2.6 (0.0-10.0) % Eos % (Auto) 2.7 (0.0-4.0) % Baso % (Auto) 0.3 (0.0-2.0) % Neut # 10.3 H (1.8-7.0) K/uL Lymph # 0.6 L (1.0-4.3) K/uL [place] # 0.3 (0.0-0.8) K/uL Eos # 0.3 (0.0-0.7) K/uL Baso # 0.0 (0.0-0.2) K/uL Neutrophils % (Manual) 69 (50-75) % Band Neutrophils % 20 H* (0-2) % Lymphocytes % (Manual) 3 L (20-40) % Monocytes % (Manual) 3 (0-10) % Eosinophils % (Manual) 5 H (0-4) % Platelet Estimate Decreased L (NORMAL) Hypochromasia (manual) Slight Poikilocytosis (manual Slight Anisocytosis (manual) Slight Target Cells Slight Sodium 165 H* (132-148) mmol/L Potassium 3.3 L (3.6-5.2) mmol/L Chloride 130 H (98-107) mmol/L Carbon Dioxide 27 (22-30) mmol/L Anion Gap 11 (10-20) BUN 79 H (7-17) mg/dL Creatinine 0.9 (0.7-1.2) MG/DL Est GFR ( Amer) > 60 Est GFR (Non-Af Amer) > 60 POC Glucose (mg/dL) (65-110) mg/dL Random Glucose 140 H (65-105) mg/dL Hemoglobin A1c 6.8 H (4.2-6.5) % Calcium 7.7 L (8.6-10.4) mg/dl Phosphorus 4.5 (2.5-4.5) mg/dL Magnesium 3.2 H (1.6-2.3) mg/dL Total Bilirubin < 0.1 L (0.2-1.3) mg/dL AST 36 (14-36) U/L ALT 33 (9-52) U/L Alkaline Phosphatase 90 (38-126) U/L Total Protein 5.7 L (6.3-8.3) g/dL Albumin 2.1 L (3.5-5.0) g/dL Globulin 3.5 (2.2-3.9) gm/dL Albumin/Globulin Ratio 0.6 L (1.0-2.1) Random Vancomycin ug/mL 12/27/16 12/27/16 Range/Units 23:45 18:17 WBC (4.8-10.8) K/uL RBC (3.80-5.20) Mil/uL Hgb (11.0-16.0) g/dL Hct (34.0-47.0) % MCV (81.0-99.0) fL MCH (27.0-31.0) pg MCHC (33.0-37.0) g/dL RDW (11.5-14.5) % Plt Count (130-400) K/uL MPV (7.2-11.7) fL Neut % (Auto) (50.0-75.0) % Lymph % (Auto) (20.0-40.0) % [place] % (Auto) (0.0-10.0) % Eos % (Auto) (0.0-4.0) % Baso % (Auto) (0.0-2.0) % Neut # (1.8-7.0) K/uL Lymph # (1.0-4.3) K/uL [place] # (0.0-0.8) K/uL Eos # (0.0-0.7) K/uL Baso # (0.0-0.2) K/uL Neutrophils % (Manual) (50-75) % Band Neutrophils % (0-2) % Lymphocytes % (Manual) (20-40) % Monocytes % (Manual) (0-10) % Eosinophils % (Manual) (0-4) % Platelet Estimate (NORMAL) Hypochromasia (manual) Poikilocytosis (manual Anisocytosis (manual) Target Cells Sodium (132-148) mmol/L Potassium (3.6-5.2) mmol/L Chloride (98-107) mmol/L Carbon Dioxide (22-30) mmol/L Anion Gap (10-20) BUN (7-17) mg/dL Creatinine (0.7-1.2) MG/DL Est GFR ( Amer) Est GFR (Non-Af Amer) POC Glucose (mg/dL) 167 H 247 H (65-110) mg/dL Random Glucose (65-105) mg/dL Hemoglobin A1c (4.2-6.5) % Calcium (8.6-10.4) mg/dl Phosphorus (2.5-4.5) mg/dL Magnesium (1.6-2.3) mg/dL Total Bilirubin (0.2-1.3) mg/dL AST (14-36) U/L ALT (9-52) U/L Alkaline Phosphatase (38-126) U/L Total Protein (6.3-8.3) g/dL Albumin (3.5-5.0) g/dL Globulin (2.2-3.9) gm/dL Albumin/Globulin Ratio (1.0-2.1) Random Vancomycin ug/mL Laboratory Results - last 24 hr 12/27/16 12/27/16 12/28/16 18:17 23:45 06:04 WBC 11.6 H RBC 2.87 L Hgb 7.7 L Hct 27.0 L MCV 94.0 MCH 26.9 L MCHC 28.7 L RDW 19.7 H Plt Count 97 L MPV 13.4 H Neut % (Auto) 89.2 H Lymph % (Auto) 5.2 L [place] % (Auto) 2.6 Eos % (Auto) 2.7 Baso % (Auto) 0.3 Neut # 10.3 H Lymph # 0.6 L [place] # 0.3 Eos # 0.3 Baso # 0.0 Neutrophils % (Manual) 69 Band Neutrophils % 20 H* Lymphocytes % (Manual) 3 L Monocytes % (Manual) 3 Eosinophils % (Manual) 5 H Platelet Estimate Decreased L Hypochromasia (manual) Slight Poikilocytosis (manual Slight Anisocytosis (manual) Slight Target Cells Slight Sodium Potassium Chloride Carbon Dioxide Anion Gap BUN Creatinine Est GFR ( Amer) Est GFR (Non-Af Amer) POC Glucose (mg/dL) 247 H 167 H Random Glucose Hemoglobin A1c Calcium Phosphorus Magnesium Total Bilirubin AST ALT Alkaline Phosphatase Total Protein Albumin Globulin Albumin/Globulin Ratio Random Vancomycin 12/28/16 12/28/16 12/28/16 06:04 06:05 06:25 WBC RBC Hgb Hct MCV MCH MCHC RDW Plt Count MPV Neut % (Auto) Lymph % (Auto) [place] % (Auto) Eos % (Auto) Baso % (Auto) Neut # Lymph # [place] # Eos # Baso # Neutrophils % (Manual) Band Neutrophils % Lymphocytes % (Manual) Monocytes % (Manual) Eosinophils % (Manual) Platelet Estimate Hypochromasia (manual) Poikilocytosis (manual Anisocytosis (manual) Target Cells Sodium 165 H* Potassium 3.3 L Chloride 130 H Carbon Dioxide 27 Anion Gap 11 BUN 79 H Creatinine 0.9 Est GFR ( Amer) > 60 Est GFR (Non-Af Amer) > 60 POC Glucose (mg/dL) 180 H Random Glucose 140 H Hemoglobin A1c 6.8 H Calcium 7.7 L Phosphorus 4.5 Magnesium 3.2 H Total Bilirubin < 0.1 L AST 36 ALT 33 Alkaline Phosphatase 90 Total Protein 5.7 L Albumin 2.1 L Globulin 3.5 Albumin/Globulin Ratio 0.6 L Random Vancomycin 12/28/16 12/28/16 07:00 11:49 WBC RBC Hgb Hct MCV MCH MCHC RDW Plt Count MPV Neut % (Auto) Lymph % (Auto) [place] % (Auto) Eos % (Auto) Baso % (Auto) Neut # Lymph # [place] # Eos # Baso # Neutrophils % (Manual) Band Neutrophils % Lymphocytes % (Manual) Monocytes % (Manual) Eosinophils % (Manual) Platelet Estimate Hypochromasia (manual) Poikilocytosis (manual Anisocytosis (manual) Target Cells Sodium Potassium Chloride Carbon Dioxide Anion Gap BUN Creatinine Est GFR ( Amer) Est GFR (Non-Af Amer) POC Glucose (mg/dL) 244 H Random Glucose Hemoglobin A1c Calcium Phosphorus Magnesium Total Bilirubin AST ALT Alkaline Phosphatase Total Protein Albumin Globulin Albumin/Globulin Ratio Random Vancomycin 22.95 Fingerstick Blood Sugar Results: 244 Review of Systems - Review of Systems Systems not reviewed;Unavailable: Acuity of Condition Assessment/Plan - Assessment and Plan (Free Text) Assessment: This is an 81 yo F with severe sepsis secondary to healthcare associated pneumonia complicated by hypovolemic hypernatremia in the setting of acute on chronic kidney failure. Plan: Neuro: obtunded metabolic encephalopathy Palliative care consulted Pulm: Healthcare associated pneumonia, continue duonebs, guaifenesin, chest PT. Pt on BiPAP Repeat CXR shows small to moderate left pleural effusion. Left lower lobe and right middle lobe consolidations. CV: Hypotensive with systolics in the 70's. Central line placed for IVF resuscitation and pressor support. Hem: Anemia of chronic disease, continue Procrit Renal: Acute on chronic kidney disease, prerenal state hypovolemic state, severe hypovolemic hypernatremia. Will start NS at 100 cc/hr after fluid challenge. Endo: A1c 6.8, on sliding scale. GI: Nothing by mouth ID: Severe sepsis from multiple sources, healthcare associated pneumonia, sacral decubitus, PEG Site infection. Per ID, abx Vanco, Azithromycin and Meropenum. Cx's positive for two types of gram neg rods and one gram positive cocci DVT proph - lovenox GI proph - Protonix zambrano for strict I/O's during acute illness Code status - DNR/DNI <Danny Rico S - Last Filed: 12/28/16 17:27> CCU Objective - Vital Signs / Intake & Output Vital Signs (Last 4 hours): Vital Signs Temp Pulse Resp BP Pulse Ox 12/28/16 16:12 74 31 H 97/49 L 99 12/28/16 16:00 96.8 F L 74 29 H 100 12/28/16 15:41 74 12/28/16 15:03 76 16 96/63 L 97 12/28/16 15:00 76 33 H 100 12/28/16 14:52 75 17 96/36 L 100 12/28/16 14:04 73 28 H 84/33 L 99 12/28/16 13:32 72 Intake and Output (Last 8hrs): Intake & Output 12/28/16 12/28/16 12/28/16 06:59 14:59 22:59 Intake Total 1115 2407.8 285.6 Output Total 260 305 50 Balance 855 2102.8 235.6 Weight 189 lb 9.561 oz Intake: IV 19 Intake, IV Amount 1115 2388.8 285.6 Right Distal Port 41.3 52.6 Internal Jugular Right Hand 652.5 Right Medial Port 350 233 Internal Jugular Right Proximal Port 1200 Internal Jugular Right Upper arm 1115 145 Output: Urine 260 305 50 Urethral (Zambrano) 260 305 50 - Medications Active Medications: Active Medications Generic Name Dose Route Start Last Admin Trade Name Freq PRN Reason Stop Dose Admin Acetaminophen 650 mg 12/28/16 10:15 Tylenol 325mg Tab PO Q4H PRN Pain, Mild (1-3) Acetylcysteine 4 ml 12/27/16 08:00 12/28/16 15:41 Acetylcysteine 20% IH 4 ml RQID PARK Administration Albuterol/Ipratropium 3 ml 12/26/16 18:00 12/28/16 15:41 Duoneb 3 Mg/0.5 Mg (3 Ml) Ud INH 3 ml RQID PARK Administration Bacitracin 0 gm 12/27/16 09:15 12/28/16 16:42 Bacitracin TOP 1 applic Q8H PARK Administration Collagenase 1 gm 12/26/16 16:45 12/28/16 16:42 Santyl EXT 1 gm Q8H PARK Administration Enoxaparin Sodium 30 mg 12/27/16 10:00 12/28/16 09:17 Lovenox SC 30 mg DAILY PARK Administration Epoetin Eddy 10,000 unit 12/27/16 09:00 12/27/16 11:16 Procrit SC 10,000 unit MWF PARK Administration Folic Acid 1 mg 12/27/16 10:00 12/28/16 09:24 Folic Acid PEG Not Given DAILY PARK Guaifenesin 100 mg 12/26/16 16:15 Robitussin PO Q4H PRN Cough Meropenem 1 gm/ Sodium 100 mls @ 100 mls/hr 12/26/16 17:00 12/28/16 15:01 Chloride IVPB 100 mls/hr Q8 PARK Administration Azithromycin 500 mg/ Sodium 250 mls @ 250 mls/hr 12/26/16 17:00 12/28/16 12: 09 Chloride IVPB 250 mls/hr DAILY PARK Administration Vancomycin/Sodium Chloride 1 gm in 200 mls @ 133.333 mls/hr 12/28/16 14:00 16:10 Vancocin IVPB 133.333 mls/hr Q24H PARK Administration Norepinephrine Bitartrate 4 mg 254 mls @ 15.24 mls/hr 12/28/16 12:32 14:00 / Sodium Chloride IV 6.9 mcg/min .[id number] PRN 26.3 mls/hr TITRATE PER MD ORDER Titration Protocol 4 MCG/MIN Sodium Chloride 1,000 mls @ 100 mls/hr 12/28/16 13:30 12/28/16 13:15 Sodium Chloride 0.45% IV 100 mls/hr .Q10H PARK Administration Insulin Human Regular 0 unit 12/26/16 18:00 12/28/16 12:10 Novolin R SC 2 unit Q6H PARK Administration Protocol Magnesium Hydroxide 30 ml 12/26/16 16:14 Milk Of Magnesia PEG DAILY PRN Constipation Pantoprazole Sodium 40 mg 12/28/16 10:00 12/28/16 09:17 Protonix Inj IVP 40 mg DAILY PARK Administration Silver Sulfadiazine 0.02 ea 12/26/16 16:45 12/28/16 16:42 Silvadene 1% 20 Gm TOP 1 gm Q8H PARK Administration - Patient Studies Lab Studies: Microbiology Studies 12/26/16 17:24 MRSA Culture (Admit) - Final Nose MRSA DETECTED 12/26/16 16:28 Wound Culture - Preliminary Abdomen Gram Negative Ranjeet Gram Negative Ranjeet#2 Gram Positive Cocci 12/26/16 16:00 Urine Culture - Final Urine,Catheterized No Growth (<1,000 CFU/ML) 12/26/16 18:00 Blood Culture - Preliminary Blood NO GROWTH AFTER 24 HOURS 12/26/16 18:00 Blood Culture - Preliminary Blood NO GROWTH AFTER 24 HOURS Lab Studies 12/28/16 12/28/16 12/28/16 Range/Units 11:49 07:00 06:25 WBC (4.8-10.8) K/uL RBC (3.80-5.20) Mil/uL Hgb (11.0-16.0) g/dL Hct (34.0-47.0) % MCV (81.0-99.0) fL MCH (27.0-31.0) pg MCHC (33.0-37.0) g/dL RDW (11.5-14.5) % Plt Count (130-400) K/uL MPV (7.2-11.7) fL Neut % (Auto) (50.0-75.0) % Lymph % (Auto) (20.0-40.0) % [place] % (Auto) (0.0-10.0) % Eos % (Auto) (0.0-4.0) % Baso % (Auto) (0.0-2.0) % Neut # (1.8-7.0) K/uL Lymph # (1.0-4.3) K/uL [place] # (0.0-0.8) K/uL Eos # (0.0-0.7) K/uL Baso # (0.0-0.2) K/uL Neutrophils % (Manual) (50-75) % Band Neutrophils % (0-2) % Lymphocytes % (Manual) (20-40) % Monocytes % (Manual) (0-10) % Eosinophils % (Manual) (0-4) % Platelet Estimate (NORMAL) Hypochromasia (manual) Poikilocytosis (manual Anisocytosis (manual) Target Cells Sodium (132-148) mmol/L Potassium (3.6-5.2) mmol/L Chloride (98-107) mmol/L Carbon Dioxide (22-30) mmol/L Anion Gap (10-20) BUN (7-17) mg/dL Creatinine (0.7-1.2) MG/DL Est GFR ( Amer) Est GFR (Non-Af Amer) POC Glucose (mg/dL) 244 H 180 H (65-110) mg/dL Random Glucose (65-105) mg/dL Hemoglobin A1c (4.2-6.5) % Calcium (8.6-10.4) mg/dl Phosphorus (2.5-4.5) mg/dL Magnesium (1.6-2.3) mg/dL Total Bilirubin (0.2-1.3) mg/dL AST (14-36) U/L ALT (9-52) U/L Alkaline Phosphatase (38-126) U/L Total Protein (6.3-8.3) g/dL Albumin (3.5-5.0) g/dL Globulin (2.2-3.9) gm/dL Albumin/Globulin Ratio (1.0-2.1) Random Vancomycin 22.95 ug/mL 12/28/16 12/28/16 12/28/16 Range/Units 06:05 06:04 06:04 WBC 11.6 H (4.8-10.8) K/uL RBC 2.87 L (3.80-5.20) Mil/uL Hgb 7.7 L (11.0-16.0) g/dL Hct 27.0 L (34.0-47.0) % MCV 94.0 (81.0-99.0) fL MCH 26.9 L (27.0-31.0) pg MCHC 28.7 L (33.0-37.0) g/dL RDW 19.7 H (11.5-14.5) % Plt Count 97 L (130-400) K/uL MPV 13.4 H (7.2-11.7) fL Neut % (Auto) 89.2 H (50.0-75.0) % Lymph % (Auto) 5.2 L (20.0-40.0) % [place] % (Auto) 2.6 (0.0-10.0) % Eos % (Auto) 2.7 (0.0-4.0) % Baso % (Auto) 0.3 (0.0-2.0) % Neut # 10.3 H (1.8-7.0) K/uL Lymph # 0.6 L (1.0-4.3) K/uL [place] # 0.3 (0.0-0.8) K/uL Eos # 0.3 (0.0-0.7) K/uL Baso # 0.0 (0.0-0.2) K/uL Neutrophils % (Manual) 69 (50-75) % Band Neutrophils % 20 H* (0-2) % Lymphocytes % (Manual) 3 L (20-40) % Monocytes % (Manual) 3 (0-10) % Eosinophils % (Manual) 5 H (0-4) % Platelet Estimate Decreased L (NORMAL) Hypochromasia (manual) Slight Poikilocytosis (manual Slight Anisocytosis (manual) Slight Target Cells Slight Sodium 165 H* (132-148) mmol/L Potassium 3.3 L (3.6-5.2) mmol/L Chloride 130 H (98-107) mmol/L Carbon Dioxide 27 (22-30) mmol/L Anion Gap 11 (10-20) BUN 79 H (7-17) mg/dL Creatinine 0.9 (0.7-1.2) MG/DL Est GFR ( Amer) > 60 Est GFR (Non-Af Amer) > 60 POC Glucose (mg/dL) (65-110) mg/dL Random Glucose 140 H (65-105) mg/dL Hemoglobin A1c 6.8 H (4.2-6.5) % Calcium 7.7 L (8.6-10.4) mg/dl Phosphorus 4.5 (2.5-4.5) mg/dL Magnesium 3.2 H (1.6-2.3) mg/dL Total Bilirubin < 0.1 L (0.2-1.3) mg/dL AST 36 (14-36) U/L ALT 33 (9-52) U/L Alkaline Phosphatase 90 (38-126) U/L Total Protein 5.7 L (6.3-8.3) g/dL Albumin 2.1 L (3.5-5.0) g/dL Globulin 3.5 (2.2-3.9) gm/dL Albumin/Globulin Ratio 0.6 L (1.0-2.1) Random Vancomycin ug/mL 12/27/16 12/27/16 Range/Units 23:45 18:17 WBC (4.8-10.8) K/uL RBC (3.80-5.20) Mil/uL Hgb (11.0-16.0) g/dL Hct (34.0-47.0) % MCV (81.0-99.0) fL MCH (27.0-31.0) pg MCHC (33.0-37.0) g/dL RDW (11.5-14.5) % Plt Count (130-400) K/uL MPV (7.2-11.7) fL Neut % (Auto) (50.0-75.0) % Lymph % (Auto) (20.0-40.0) % [place] % (Auto) (0.0-10.0) % Eos % (Auto) (0.0-4.0) % Baso % (Auto) (0.0-2.0) % Neut # (1.8-7.0) K/uL Lymph # (1.0-4.3) K/uL [place] # (0.0-0.8) K/uL Eos # (0.0-0.7) K/uL Baso # (0.0-0.2) K/uL Neutrophils % (Manual) (50-75) % Band Neutrophils % (0-2) % Lymphocytes % (Manual) (20-40) % Monocytes % (Manual) (0-10) % Eosinophils % (Manual) (0-4) % Platelet Estimate (NORMAL) Hypochromasia (manual) Poikilocytosis (manual Anisocytosis (manual) Target Cells Sodium (132-148) mmol/L Potassium (3.6-5.2) mmol/L Chloride (98-107) mmol/L Carbon Dioxide (22-30) mmol/L Anion Gap (10-20) BUN (7-17) mg/dL Creatinine (0.7-1.2) MG/DL Est GFR ( Amer) Est GFR (Non-Af Amer) POC Glucose (mg/dL) 167 H 247 H (65-110) mg/dL Random Glucose (65-105) mg/dL Hemoglobin A1c (4.2-6.5) % Calcium (8.6-10.4) mg/dl Phosphorus (2.5-4.5) mg/dL Magnesium (1.6-2.3) mg/dL Total Bilirubin (0.2-1.3) mg/dL AST (14-36) U/L ALT (9-52) U/L Alkaline Phosphatase (38-126) U/L Total Protein (6.3-8.3) g/dL Albumin (3.5-5.0) g/dL Globulin (2.2-3.9) gm/dL Albumin/Globulin Ratio (1.0-2.1) Random Vancomycin ug/mL Laboratory Results - last 24 hr 12/27/16 12/27/16 12/28/16 18:17 23:45 06:04 WBC 11.6 H RBC 2.87 L Hgb 7.7 L Hct 27.0 L MCV 94.0 MCH 26.9 L MCHC 28.7 L RDW 19.7 H Plt Count 97 L MPV 13.4 H Neut % (Auto) 89.2 H Lymph % (Auto) 5.2 L [place] % (Auto) 2.6 Eos % (Auto) 2.7 Baso % (Auto) 0.3 Neut # 10.3 H Lymph # 0.6 L [place] # 0.3 Eos # 0.3 Baso # 0.0 Neutrophils % (Manual) 69 Band Neutrophils % 20 H* Lymphocytes % (Manual) 3 L Monocytes % (Manual) 3 Eosinophils % (Manual) 5 H Platelet Estimate Decreased L Hypochromasia (manual) Slight Poikilocytosis (manual Slight Anisocytosis (manual) Slight Target Cells Slight Sodium Potassium Chloride Carbon Dioxide Anion Gap BUN Creatinine Est GFR ( Amer) Est GFR (Non-Af Amer) POC Glucose (mg/dL) 247 H 167 H Random Glucose Hemoglobin A1c Calcium Phosphorus Magnesium Total Bilirubin AST ALT Alkaline Phosphatase Total Protein Albumin Globulin Albumin/Globulin Ratio Random Vancomycin 12/28/16 12/28/16 12/28/16 06:04 06:05 06:25 WBC RBC Hgb Hct MCV MCH MCHC RDW Plt Count MPV Neut % (Auto) Lymph % (Auto) [place] % (Auto) Eos % (Auto) Baso % (Auto) Neut # Lymph # [place] # Eos # Baso # Neutrophils % (Manual) Band Neutrophils % Lymphocytes % (Manual) Monocytes % (Manual) Eosinophils % (Manual) Platelet Estimate Hypochromasia (manual) Poikilocytosis (manual Anisocytosis (manual) Target Cells Sodium 165 H* Potassium 3.3 L Chloride 130 H Carbon Dioxide 27 Anion Gap 11 BUN 79 H Creatinine 0.9 Est GFR ( Amer) > 60 Est GFR (Non-Af Amer) > 60 POC Glucose (mg/dL) 180 H Random Glucose 140 H Hemoglobin A1c 6.8 H Calcium 7.7 L Phosphorus 4.5 Magnesium 3.2 H Total Bilirubin < 0.1 L AST 36 ALT 33 Alkaline Phosphatase 90 Total Protein 5.7 L Albumin 2.1 L Globulin 3.5 Albumin/Globulin Ratio 0.6 L Random Vancomycin 12/28/16 12/28/16 07:00 11:49 WBC RBC Hgb Hct MCV MCH MCHC RDW Plt Count MPV Neut % (Auto) Lymph % (Auto) [place] % (Auto) Eos % (Auto) Baso % (Auto) Neut # Lymph # [place] # Eos # Baso # Neutrophils % (Manual) Band Neutrophils % Lymphocytes % (Manual) Monocytes % (Manual) Eosinophils % (Manual) Platelet Estimate Hypochromasia (manual) Poikilocytosis (manual Anisocytosis (manual) Target Cells Sodium Potassium Chloride Carbon Dioxide Anion Gap BUN Creatinine Est GFR ( Amer) Est GFR (Non-Af Amer) POC Glucose (mg/dL) 244 H Random Glucose Hemoglobin A1c Calcium Phosphorus Magnesium Total Bilirubin AST ALT Alkaline Phosphatase Total Protein Albumin Globulin Albumin/Globulin Ratio Random Vancomycin 22.95 Attending/Attestation - Attestation I have personally seen and examined this patient.: Yes I have fully participated in the care of the patient.: Yes I have reviewed all pertinent clinical information: Yes Notes (Text): 12/28/16 17:25 Patient seen and examined in the intensive care unit. Case discussed with staff in the morning rounds. Started on pressors for hypotension triple lumen Catheter inserted into right internal jugular vein under aseptic conditions and local anesthesia Continue antibiotics DNR/DNI Continue IV fluids
[2016-12-28] MEDS: Sodium Chloride 0.45% 1,000 ML IV SCH (13:15)
[2016-12-28] MEDS ORDERED: Vancomycin 1 gm/NS 200 ml 1 GM/200 ML BAG IVPB SCH (14:00)
--- NOTE | 2016-12-28 16:20 | CP.PCM.PN ---
Subjective - Date & Time of Evaluation Date of Evaluation: 12/28/16 Time of Evaluation: 16:40 - Subjective Subjective: clinically same Objective - Vital Signs/Intake and Output Vital Signs (last 24 hours): Temp Pulse Resp BP Pulse Ox 97.2 F L 74 17 96/36 L 100 12/28/16 12:00 12/28/16 15:41 12/28/16 14:52 12/28/16 14:52 12/28/16 14:52 Intake and Output: 12/28/16 12/28/16 06:59 18:59 Intake Total 1850 2534.1 Output Total 365 355 Balance 1485 2179.1 - Medications Medications: Current Medications Acetaminophen (Tylenol 325mg Tab) 650 mg PO Q4H PRN PRN Reason: Pain, Mild (1-3) Acetylcysteine (Acetylcysteine 20%) 4 ml IH RQID [facility] Last Admin: 12/28/16 15:41 Dose: 4 ml Albuterol/Ipratropium (Duoneb 3 Mg/0.5 Mg (3 Ml) Ud) 3 ml INH RQID [facility] Last Admin: 12/28/16 15:41 Dose: 3 ml Bacitracin (Bacitracin) 0 gm TOP Q8H [facility] Last Admin: 12/28/16 09:19 Dose: 1 applic Collagenase (Santyl) 1 gm EXT Q8H [facility] Last Admin: 12/28/16 09:19 Dose: 1 gm Enoxaparin Sodium (Lovenox) 30 mg SC DAILY [facility] Last Admin: 12/28/16 09:17 Dose: 30 mg Epoetin Eddy (Procrit) 10,000 unit SC MWF [facility] Last Admin: 12/27/16 11:16 Dose: 10,000 unit Folic Acid (Folic Acid) 1 mg PEG DAILY [facility] Last Admin: 12/28/16 09:24 Dose: Not Given Guaifenesin (Robitussin) 100 mg PO Q4H PRN PRN Reason: Cough Meropenem 1 gm/ Sodium (Chloride) 100 mls @ 100 mls/hr IVPB Q8 [facility] Last Admin: 12/28/16 15:01 Dose: 100 mls/hr Azithromycin 500 mg/ Sodium (Chloride) 250 mls @ 250 mls/hr IVPB DAILY [facility] Last Admin: 12/28/16 12:09 Dose: 250 mls/hr Vancomycin/Sodium Chloride (Vancocin) 1 gm in 200 mls @ 133.333 mls/hr IVPB Q24H [facility] Last Admin: 12/28/16 16:10 Dose: 133.333 mls/hr Norepinephrine Bitartrate 4 mg (/ Sodium Chloride) 254 mls @ 15.24 mls/hr IV .[id number] PRN; Protocol; 4 MCG/MIN PRN Reason: TITRATE PER MD ORDER Last Titration: 12/28/16 14:00 Dose: 6.9 mcg/min, 26.3 mls/hr Sodium Chloride (Sodium Chloride 0.45%) 1,000 mls @ 100 mls/hr IV .Q10H [facility] Last Admin: 12/28/16 13:15 Dose: 100 mls/hr Insulin Human Regular (Novolin R) 0 unit SC Q6H [facility] PRN Reason: Protocol Last Admin: 12/28/16 12:10 Dose: 2 unit Magnesium Hydroxide (Milk Of Magnesia) 30 ml PEG DAILY PRN PRN Reason: Constipation Pantoprazole Sodium (Protonix Inj) 40 mg IVP DAILY [facility] Last Admin: 12/28/16 09:17 Dose: 40 mg Silver Sulfadiazine (Silvadene 1% 20 Gm) 0.02 ea TOP Q8H [facility] Last Admin: 12/28/16 09:18 Dose: 1 gm - Labs Labs: 12/28/16 06:04 12/28/16 06:04 PT 14.4 SECONDS (9.7-12.2) H 12/26/16 14:35 INR 1.3 12/26/16 14:35 APTT 33 SECONDS (21-34) 12/26/16 14:35 - Constitutional Appears: Well - Head Exam Head Exam: ATRAUMATIC, NORMAL INSPECTION, NORMOCEPHALIC - Eye Exam Eye Exam: EOMI, Normal appearance, PERRL Pupil Exam: NORMAL ACCOMODATION, PERRL - ENT Exam ENT Exam: Mucous Membranes Moist, Normal Exam - Neck Exam Neck Exam: Full ROM, Normal Inspection. absent: Lymphadenopathy - Respiratory Exam Respiratory Exam: Decreased Breath Sounds - Cardiovascular Exam Cardiovascular Exam: REGULAR RHYTHM, +S1, +S2 - GI/Abdominal Exam GI & Abdominal Exam: Soft, Diminished Bowel Sounds - Rectal Exam Rectal Exam: Deferred Assessment and Plan (1) Acute hypernatremia Status: Acute (2) Blood bacterial culture positive Status: Acute (3) COPD with lower respiratory infection Status: Acute (4) CVA (cerebral vascular accident) Status: Acute (5) Cellulitis Status: Acute (6) Contusion Status: Acute (7) Dehydration Status: Acute (8) Fever and chills Status: Acute (9) Gastrostomy tube obstruction Status: Acute (10) Hypernatremia Status: Acute (11) PEG (percutaneous endoscopic gastrostomy) adjustment/replacement/removal Status: Acute (12) Physical debility Status: Acute (13) Pneumonia Status: Acute (14) Pneumonia Status: Acute (15) Sacral decubitus ulcer, stage III Status: Acute (16) Senile debility Status: Acute (17) Sepsis Status: Acute (18) Sepsis Status: Acute (19) Sepsis with metabolic encephalopathy Status: Acute (20) Septic shock Status: Acute (21) Abnormal CXR (chest x-ray) Status: Chronic (22) Aspiration into lower respiratory tract Status: Chronic (23) Dementia Status: Chronic - Assessment and Plan (Free Text) Plan: Follow-up GI 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
[2016-12-29] MEDS: Bacitracin Ointment 30 GM TUBE TOP SCH ×3 (01:35→18:14)
[2016-12-29] MEDS: Silver Sulfadiazine 1% Cream (20 gm) TOP SCH ×3 (01:35→18:14)
[2016-12-29] MEDS: Collagenase 250 Units/gm Ointment(30 gm) EXT SCH ×2 (01:35→09:30)
[2016-12-29] MEDS: Sodium Chloride 0.45% 1,000 ML IV SCH ×3 (03:50→19:30)
[2016-12-29 05:40] LABS: ABG ALLEN TEST POS; ARTERIAL BLOOD HGB O2 SAT 96.4 % (95.0-98.0); DRAW SITE RR; HHB -0.1 % (0.0-5.0); METHEMOGLOBIN 1.8 % (0.0-3.0)
[2016-12-29] MEDS: (Novolin R) Insulin Human Regular 100 units/ml vial SC SCH ×4 (06:00→18:11)
[2016-12-29] MEDS: Meropenem 1 GM in Sodium Chloride 0.9% 100 ML IVPB SCH ×3 (06:15→21:40)
[2016-12-29 06:17] LABS: BASO % 0.2 % (0.0-2.0); EOS # 0.6 K/uL (0.0-0.7); EOS % 5.3 % (0.0-4.0); HEMATOCRIT 24.5 % (34.0-47.0); LYMPH # 0.6 K/uL (1.0-4.3); LYMPH % 6.1 % (20.0-40.0); MEAN CELL VOLUME 91.8 fL (81.0-99.0); MEAN CORPUSCULAR HEMOGLOBIN 27.3 pg (27.0-31.0); MEAN CORPUSCULAR HGB CONC 29.7 g/dL (33.0-37.0); MEAN PLATELET VOLUME 13.5 fL (7.2-11.7); MONO # 0.2 K/uL (0.0-0.8); MONO % 1.9 % (0.0-10.0); NRBC % 0.2 % (0.0-2.0); PLATELET COUNT 128 K/uL (130-400); RED CELL DISTRIBUTION WIDTH 20.1 % (11.5-14.5); WHITE BLOOD COUNT 10.7 K/uL (4.8-10.8)
[2016-12-29 06:46] LABS: CHLORIDE 129 mmol/L (98-107); POTASSIUM 3.4 mmol/L (3.6-5.2)
[2016-12-29 06:48] LABS: ALKALINE PHOSPHATASE 100 U/L (38-126); AST/SGOT 30 U/L (14-36); BILIRUBIN,TOTAL < 0.1 mg/dL (0.2-1.3); CARBON DIOXIDE 29 mmol/L (22-30); GFR AFRICAN-AMERICAN > 60; TOTAL PROTEIN 5.5 g/dL (6.3-8.3)
[2016-12-29 06:49] LABS: ALT/SGPT 36 U/L (9-52); BLOOD UREA NITROGEN 50 mg/dL (7-17); CALCIUM 7.8 mg/dl (8.6-10.4); GLUCOSE,RANDOM 86 mg/dL (65-105); MAGNESIUM 2.9 mg/dL (1.6-2.3); PHOSPHOROUS 4.4 mg/dL (2.5-4.5)
[2016-12-29 06:55] LABS: ALB/GLOB RATIO 0.6 (1.0-2.1); SODIUM 165 mmol/L (132-148)
[2016-12-29] MEDS: Acetylcysteine 20% Inhal Soln (4ml) IH SCH ×4 (07:25→19:32)
[2016-12-29] MEDS: Albuterol-Ipratrop 3 mg / 0.5 (3 ml) UD INH SCH ×4 (07:25→19:32)
[2016-12-29 08:24] LABS: EOSINOPHIL 5 % (0-4); MYELOCYTE 1 % (0-0); TOTAL CELLS COUNTED 100
[2016-12-29 08:25] LABS: NEUTROPHIL 80 % (50-75)
[2016-12-29] MEDS ORDERED: Potassium Chloride 20 mEq/15 ml LIQ UD PEG ONE (09:34)
[2016-12-29] MEDS: Azithromycin 500 MG in Sodium Chloride 0.9% 250 ML IVPB SCH (10:00)
[2016-12-29] MEDS: Enoxaparin 30 mg Syringe SC SCH (11:00)
--- NOTE | 2016-12-29 11:33 | CP.CCUPN ---
<Michi Parker - Last Filed: 12/29/16 11:30> CCU Subjective - Physician Review Subjective (Free Text): 12/29/16 11:30 PGY-1 progress note Pt seen and examined at bedside. No acute events overnight. Pt still on BiPAP. Alert but altered Critical Care Time Spent (in minutes): 35 CCU Objective - Vital Signs / Intake & Output Vital Signs (Last 4 hours): Vital Signs Pulse Resp BP Pulse Ox 12/29/16 11:20 68 12/29/16 07:42 67 31 H 90/41 L 100 Intake and Output (Last 8hrs): Intake & Output 12/28/16 12/29/16 12/29/16 22:59 06:59 14:59 Intake Total 1234.1 1055.5 122.5 Output Total 245 500 Balance 989.1 555.5 122.5 Weight 192 lb 14.472 oz Intake: IV 200 94 Intake, IV Amount 1034.1 961.5 122.5 Right Distal Port 505.2 800 100 Internal Jugular Right Medial Port 378.9 161.5 22.5 Internal Jugular Right Proximal Port 150 Internal Jugular Output: Urine 245 500 Urethral (Zambrano) 245 500 Other: # Bowel Movements 1 1 - Physical Exam Head: Positive for: Atraumatic, Normocephalic Pupils: Positive for: PERRL Respiratory/Chest: Positive for: Clear to Auscultation, Good Air Exchange Cardiovascular: Positive for: Normal S1, S2 Abdomen: Positive for: Normal Bowel Sounds. Negative for: Distention Upper Extremity: Positive for: NORMAL PULSES, Neurovascularly Intact Lower Extremity: Positive for: NORMAL PULSES, Neurovascularly Intact Skin: Positive for: Warm, Dry Psychiatric: Positive for: Alert. Negative for: Oriented x 3 - Medications Active Medications: Active Medications Generic Name Dose Route Start Last Admin Trade Name Freq PRN Reason Stop Dose Admin Acetaminophen 650 mg 12/28/16 10:15 Tylenol 325mg Tab PO Q4H PRN Pain, Mild (1-3) Acetylcysteine 4 ml 12/27/16 08:00 12/29/16 11:19 Acetylcysteine 20% IH 4 ml RQID PARK Administration Albuterol/Ipratropium 3 ml 12/26/16 18:00 12/29/16 11:19 Duoneb 3 Mg/0.5 Mg (3 Ml) Ud INH 3 ml RQID PARK Administration Bacitracin 0 gm 12/27/16 09:15 12/29/16 01:35 Bacitracin TOP 1 applic Q8H PARK Administration Collagenase 1 gm 12/26/16 16:45 12/29/16 01:35 Santyl EXT 1 gm Q8H PARK Administration Enoxaparin Sodium 30 mg 12/27/16 10:00 12/28/16 09:17 Lovenox SC 30 mg DAILY PARK Administration Epoetin Eddy 10,000 unit 12/27/16 09:00 12/27/16 11:16 Procrit SC 10,000 unit MWF PARK Administration Folic Acid 1 mg 12/27/16 10:00 12/28/16 09:24 Folic Acid PEG Not Given DAILY [facility] Guaifenesin 100 mg 12/26/16 16:15 Robitussin PO Q4H PRN Cough Meropenem 1 gm/ Sodium 100 mls @ 100 mls/hr 12/26/16 17:00 12/29/16 06:15 Chloride IVPB 100 mls/hr Q8 PARK Administration Norepinephrine Bitartrate 4 mg 254 mls @ 15.24 mls/hr 12/28/16 12:32 04:15 / Sodium Chloride IV 6 mcg/min .[id number] PRN 22.86 mls/hr TITRATE PER MD ORDER Titration Protocol 4 MCG/MIN Sodium Chloride 1,000 mls @ 100 mls/hr 12/28/16 13:30 12/29/16 03:50 Sodium Chloride 0.45% IV 100 mls/hr .Q10H PARK Administration Ampicillin 2 gm/ Sodium 100 mls @ 100 mls/hr 12/29/16 11:00 Chloride IVPB Q6H PARK Insulin Human Regular 0 unit 12/26/16 18:00 12/29/16 06:00 Novolin R SC Not Given Q6H [facility] Protocol Magnesium Hydroxide 30 ml 12/26/16 16:14 Milk Of Magnesia PEG DAILY PRN Constipation Pantoprazole Sodium 40 mg 12/28/16 10:00 12/28/16 09:17 Protonix Inj IVP 40 mg DAILY PARK Administration Silver Sulfadiazine 0.02 ea 12/26/16 16:45 12/29/16 01:35 Silvadene 1% 20 Gm TOP 0.02 gm Q8H PARK Administration - Patient Studies Lab Studies: Microbiology Studies 12/26/16 16:28 Wound Culture - Preliminary Abdomen Vancomycin Res E.faecalis Proteus Mirabilis Klebsiella Pneumoniae Ssp Pneu 12/26/16 18:00 Blood Culture - Preliminary Blood NO GROWTH AFTER 48 HOURS 12/26/16 18:00 Blood Culture - Preliminary Blood NO GROWTH AFTER 48 HOURS 12/26/16 17:24 MRSA Culture (Admit) - Final Nose MRSA DETECTED 12/26/16 16:00 Urine Culture - Final Urine,Catheterized No Growth (<1,000 CFU/ML) Lab Studies 12/29/16 12/29/16 12/29/16 Range/Units 06:08 06:05 05:50 WBC 10.7 (4.8-10.8) K/uL RBC 2.67 L (3.80-5.20) Mil/uL Hgb 7.3 L (11.0-16.0) g/dL Hct 24.5 L (34.0-47.0) % MCV 91.8 D (81.0-99.0) fL MCH 27.3 (27.0-31.0) pg MCHC 29.7 L (33.0-37.0) g/dL RDW 20.1 H (11.5-14.5) % Plt Count 128 L D (130-400) K/uL MPV 13.5 H (7.2-11.7) fL Neut % (Auto) 86.5 H (50.0-75.0) % Lymph % (Auto) 6.1 L (20.0-40.0) % [place] % (Auto) 1.9 (0.0-10.0) % Eos % (Auto) 5.3 H (0.0-4.0) % Baso % (Auto) 0.2 (0.0-2.0) % Neut # 9.2 H (1.8-7.0) K/uL Lymph # 0.6 L (1.0-4.3) K/uL Madison # 0.2 (0.0-0.8) K/uL Eos # 0.6 (0.0-0.7) K/uL Baso # 0.0 (0.0-0.2) K/uL Neutrophils % (Manual) 80 H (50-75) % Band Neutrophils % 8 H (0-2) % Lymphocytes % (Manual) 5 L (20-40) % Monocytes % (Manual) 1 (0-10) % Eosinophils % (Manual) 5 H (0-4) % Myelocytes % 1 H (0-0) % Platelet Estimate Slightly decreased L (NORMAL) Hypochromasia (manual) Slight Poikilocytosis (manual Slight Anisocytosis (manual) Slight Target Cells Slight Puncture Site pCO2 (35-45) mm/Hg pO2 (80-100) mm/Hg HCO3 (21-28) mmol/L ABG pH (7.35-7.45) ABG Total CO2 (22-28) mmol/L ABG O2 Saturation (95-98) % ABG Base Excess (-2.0-3.0) mmol/L ABG Hemoglobin (11.7-17.4) g/dL ABG Carboxyhemoglobin (0.5-1.5) % POC ABG HHb (Measured) (0.0-5.0) % ABG Methemoglobin (0.0-3.0) % Marcos Test A-a O2 Difference mm/Hg Respiratory Index Hgb O2 Saturation (95.0-98.0) % FiO2 % Inspiratory BiPAP Expiratory BiPAP Sodium 165 H* (132-148) mmol/L Potassium 3.4 L (3.6-5.2) mmol/L Chloride 129 H (98-107) mmol/L Carbon Dioxide 29 (22-30) mmol/L Anion Gap 10 (10-20) BUN 50 H (7-17) mg/dL Creatinine 0.9 (0.7-1.2) MG/DL Est GFR ( Amer) > 60 Est GFR (Non-Af Amer) > 60 POC Glucose (mg/dL) 106 (65-110) mg/dL Random Glucose 86 (65-105) mg/dL Calcium 7.8 L (8.6-10.4) mg/dl Phosphorus 4.4 (2.5-4.5) mg/dL Magnesium 2.9 H (1.6-2.3) mg/dL Total Bilirubin < 0.1 L (0.2-1.3) mg/dL AST 30 (14-36) U/L ALT 36 (9-52) U/L Alkaline Phosphatase 100 (38-126) U/L Total Protein 5.5 L (6.3-8.3) g/dL Albumin 2.0 L (3.5-5.0) g/dL Globulin 3.6 (2.2-3.9) gm/dL Albumin/Globulin Ratio 0.6 L (1.0-2.1) 12/29/16 12/29/16 12/28/16 Range/Units 05:16 00:00 17:51 WBC (4.8-10.8) K/uL RBC (3.80-5.20) Mil/uL Hgb (11.0-16.0) g/dL Hct (34.0-47.0) % MCV (81.0-99.0) fL MCH (27.0-31.0) pg MCHC (33.0-37.0) g/dL RDW (11.5-14.5) % Plt Count (130-400) K/uL MPV (7.2-11.7) fL Neut % (Auto) (50.0-75.0) % Lymph % (Auto) (20.0-40.0) % [place] % (Auto) (0.0-10.0) % Eos % (Auto) (0.0-4.0) % Baso % (Auto) (0.0-2.0) % Neut # (1.8-7.0) K/uL Lymph # (1.0-4.3) K/uL Madison # (0.0-0.8) K/uL Eos # (0.0-0.7) K/uL Baso # (0.0-0.2) K/uL Neutrophils % (Manual) (50-75) % Band Neutrophils % (0-2) % Lymphocytes % (Manual) (20-40) % Monocytes % (Manual) (0-10) % Eosinophils % (Manual) (0-4) % Myelocytes % (0-0) % Platelet Estimate (NORMAL) Hypochromasia (manual) Poikilocytosis (manual Anisocytosis (manual) Target Cells Puncture Site Rr pCO2 52 H (35-45) mm/Hg pO2 193 H (80-100) mm/Hg HCO3 25.9 (21-28) mmol/L ABG pH 7.33 L (7.35-7.45) ABG Total CO2 29.0 H (22-28) mmol/L ABG O2 Saturation 100.1 H (95-98) % ABG Base Excess 1.2 (-2.0-3.0) mmol/L ABG Hemoglobin 7.3 L (11.7-17.4) g/dL ABG Carboxyhemoglobin 2.0 H (0.5-1.5) % POC ABG HHb (Measured) -0.1 L (0.0-5.0) % ABG Methemoglobin 1.8 (0.0-3.0) % Marcos Test Pos A-a O2 Difference 312.0 mm/Hg Respiratory Index 1.6 Hgb O2 Saturation 96.4 (95.0-98.0) % FiO2 80.0 % Inspiratory BiPAP 16 Expiratory BiPAP 8 Sodium (132-148) mmol/L Potassium (3.6-5.2) mmol/L Chloride (98-107) mmol/L Carbon Dioxide (22-30) mmol/L Anion Gap (10-20) BUN (7-17) mg/dL Creatinine (0.7-1.2) MG/DL Est GFR ( Amer) Est GFR (Non-Af Amer) POC Glucose (mg/dL) 125 H 112 H (65-110) mg/dL Random Glucose (65-105) mg/dL Calcium (8.6-10.4) mg/dl Phosphorus (2.5-4.5) mg/dL Magnesium (1.6-2.3) mg/dL Total Bilirubin (0.2-1.3) mg/dL AST (14-36) U/L ALT (9-52) U/L Alkaline Phosphatase (38-126) U/L Total Protein (6.3-8.3) g/dL Albumin (3.5-5.0) g/dL Globulin (2.2-3.9) gm/dL Albumin/Globulin Ratio (1.0-2.1) 12/28/16 Range/Units 11:49 WBC (4.8-10.8) K/uL RBC (3.80-5.20) Mil/uL Hgb (11.0-16.0) g/dL Hct (34.0-47.0) % MCV (81.0-99.0) fL MCH (27.0-31.0) pg MCHC (33.0-37.0) g/dL RDW (11.5-14.5) % Plt Count (130-400) K/uL MPV (7.2-11.7) fL Neut % (Auto) (50.0-75.0) % Lymph % (Auto) (20.0-40.0) % [place] % (Auto) (0.0-10.0) % Eos % (Auto) (0.0-4.0) % Baso % (Auto) (0.0-2.0) % Neut # (1.8-7.0) K/uL Lymph # (1.0-4.3) K/uL [place] # (0.0-0.8) K/uL Eos # (0.0-0.7) K/uL Baso # (0.0-0.2) K/uL Neutrophils % (Manual) (50-75) % Band Neutrophils % (0-2) % Lymphocytes % (Manual) (20-40) % Monocytes % (Manual) (0-10) % Eosinophils % (Manual) (0-4) % Myelocytes % (0-0) % Platelet Estimate (NORMAL) Hypochromasia (manual) Poikilocytosis (manual Anisocytosis (manual) Target Cells Puncture Site pCO2 (35-45) mm/Hg pO2 (80-100) mm/Hg HCO3 (21-28) mmol/L ABG pH (7.35-7.45) ABG Total CO2 (22-28) mmol/L ABG O2 Saturation (95-98) % ABG Base Excess (-2.0-3.0) mmol/L ABG Hemoglobin (11.7-17.4) g/dL ABG Carboxyhemoglobin (0.5-1.5) % POC ABG HHb (Measured) (0.0-5.0) % ABG Methemoglobin (0.0-3.0) % Marcos Test A-a O2 Difference mm/Hg Respiratory Index Hgb O2 Saturation (95.0-98.0) % FiO2 % Inspiratory BiPAP Expiratory BiPAP Sodium (132-148) mmol/L Potassium (3.6-5.2) mmol/L Chloride (98-107) mmol/L Carbon Dioxide (22-30) mmol/L Anion Gap (10-20) BUN (7-17) mg/dL Creatinine (0.7-1.2) MG/DL Est GFR ( Amer) Est GFR (Non-Af Amer) POC Glucose (mg/dL) 244 H (65-110) mg/dL Random Glucose (65-105) mg/dL Calcium (8.6-10.4) mg/dl Phosphorus (2.5-4.5) mg/dL Magnesium (1.6-2.3) mg/dL Total Bilirubin (0.2-1.3) mg/dL AST (14-36) U/L ALT (9-52) U/L Alkaline Phosphatase (38-126) U/L Total Protein (6.3-8.3) g/dL Albumin (3.5-5.0) g/dL Globulin (2.2-3.9) gm/dL Albumin/Globulin Ratio (1.0-2.1) Laboratory Results - last 24 hr 12/28/16 12/28/16 12/29/16 11:49 17:51 00:00 WBC RBC Hgb Hct MCV MCH MCHC RDW Plt Count MPV Neut % (Auto) Lymph % (Auto) [place] % (Auto) Eos % (Auto) Baso % (Auto) Neut # Lymph # [place] # Eos # Baso # Neutrophils % (Manual) Band Neutrophils % Lymphocytes % (Manual) Monocytes % (Manual) Eosinophils % (Manual) Myelocytes % Platelet Estimate Hypochromasia (manual) Poikilocytosis (manual Anisocytosis (manual) Target Cells Puncture Site pCO2 pO2 HCO3 ABG pH ABG Total CO2 ABG O2 Saturation ABG Base Excess ABG Hemoglobin ABG Carboxyhemoglobin POC ABG HHb (Measured) ABG Methemoglobin Marcos Test A-a O2 Difference Respiratory Index Hgb O2 Saturation FiO2 Inspiratory BiPAP Expiratory BiPAP Sodium Potassium Chloride Carbon Dioxide Anion Gap BUN Creatinine Est GFR ( Amer) Est GFR (Non-Af Amer) POC Glucose (mg/dL) 244 H 112 H 125 H Random Glucose Calcium Phosphorus Magnesium Total Bilirubin AST ALT Alkaline Phosphatase Total Protein Albumin Globulin Albumin/Globulin Ratio 12/29/16 12/29/16 12/29/16 05:16 05:50 06:05 WBC RBC Hgb Hct MCV MCH MCHC RDW Plt Count MPV Neut % (Auto) Lymph % (Auto) [place] % (Auto) Eos % (Auto) Baso % (Auto) Neut # Lymph # [place] # Eos # Baso # Neutrophils % (Manual) Band Neutrophils % Lymphocytes % (Manual) Monocytes % (Manual) Eosinophils % (Manual) Myelocytes % Platelet Estimate Hypochromasia (manual) Poikilocytosis (manual Anisocytosis (manual) Target Cells Puncture Site Rr pCO2 52 H pO2 193 H HCO3 25.9 ABG pH 7.33 L ABG Total CO2 29.0 H ABG O2 Saturation 100.1 H ABG Base Excess 1.2 ABG Hemoglobin 7.3 L ABG Carboxyhemoglobin 2.0 H POC ABG HHb (Measured) -0.1 L ABG Methemoglobin 1.8 Marcos Test Pos A-a O2 Difference 312.0 Respiratory Index 1.6 Hgb O2 Saturation 96.4 FiO2 80.0 Inspiratory BiPAP 16 Expiratory BiPAP 8 Sodium 165 H* Potassium 3.4 L Chloride 129 H Carbon Dioxide 29 Anion Gap 10 BUN 50 H Creatinine 0.9 Est GFR ( Amer) > 60 Est GFR (Non-Af Amer) > 60 POC Glucose (mg/dL) 106 Random Glucose 86 Calcium 7.8 L Phosphorus 4.4 Magnesium 2.9 H Total Bilirubin < 0.1 L AST 30 ALT 36 Alkaline Phosphatase 100 Total Protein 5.5 L Albumin 2.0 L Globulin 3.6 Albumin/Globulin Ratio 0.6 L 12/29/16 06:08 WBC 10.7 RBC 2.67 L Hgb 7.3 L Hct 24.5 L MCV 91.8 D MCH 27.3 MCHC 29.7 L RDW 20.1 H Plt Count 128 L D MPV 13.5 H Neut % (Auto) 86.5 H Lymph % (Auto) 6.1 L [place] % (Auto) 1.9 Eos % (Auto) 5.3 H Baso % (Auto) 0.2 Neut # 9.2 H Lymph # 0.6 L [place] # 0.2 Eos # 0.6 Baso # 0.0 Neutrophils % (Manual) 80 H Band Neutrophils % 8 H Lymphocytes % (Manual) 5 L Monocytes % (Manual) 1 Eosinophils % (Manual) 5 H Myelocytes % 1 H Platelet Estimate Slightly decreased L Hypochromasia (manual) Slight Poikilocytosis (manual Slight Anisocytosis (manual) Slight Target Cells Slight Puncture Site pCO2 pO2 HCO3 ABG pH ABG Total CO2 ABG O2 Saturation ABG Base Excess ABG Hemoglobin ABG Carboxyhemoglobin POC ABG HHb (Measured) ABG Methemoglobin Marcos Test A-a O2 Difference Respiratory Index Hgb O2 Saturation FiO2 Inspiratory BiPAP Expiratory BiPAP Sodium Potassium Chloride Carbon Dioxide Anion Gap BUN Creatinine Est GFR ( Amer) Est GFR (Non-Af Amer) POC Glucose (mg/dL) Random Glucose Calcium Phosphorus Magnesium Total Bilirubin AST ALT Alkaline Phosphatase Total Protein Albumin Globulin Albumin/Globulin Ratio Fingerstick Blood Sugar Results: 106 Review of Systems - Review of Systems Systems not reviewed;Unavailable: Altered Mental Status Assessment/Plan - Assessment and Plan (Free Text) Assessment: This is an 81 yo F with severe sepsis secondary to healthcare associated pneumonia complicated by hypovolemic hypernatremia in the setting of acute on chronic kidney failure. Plan: Neuro: obtunded metabolic encephalopathy Palliative care consulted Pulm: Healthcare associated pneumonia, continue duonebs, guaifenesin, chest PT. Pt on BiPAP Repeat CXR shows small to moderate left pleural effusion. Left lower lobe and right middle lobe consolidations. Pt on ampicillin and meropenem CV: Hypotensive with systolics in the 70's. Central line placed for IVF resuscitation and pressor support. Hem: Anemia of chronic disease, continue Procrit Renal: Acute on chronic kidney disease, prerenal state hypovolemic state, severe hypovolemic hypernatremia. Will start NS at 100 cc/hr after fluid challenge. Endo: A1c 6.8, on sliding scale. GI: Nothing by mouth. Tube feeds started. ID: Severe sepsis from multiple sources, healthcare associated pneumonia, sacral decubitus, PEG Site infection. Cx's positive for VRE, Proteus and Kelb from PEG site. Per ID, abx changed to Rimma and ampicillin. DVT proph - lovenox GI proph - Protonix zambrano for strict I/O's during acute illness Code status - DNR/DNI <Danny Rico S - Last Filed: 12/29/16 16:17> CCU Objective - Vital Signs / Intake & Output Vital Signs (Last 4 hours): Vital Signs Pulse Resp BP Pulse Ox 12/29/16 16:02 68 12/29/16 15:28 70 25 H 76/38 L 100 12/29/16 13:23 68 Intake and Output (Last 8hrs): Intake & Output 12/29/16 12/29/16 12/29/16 06:59 14:59 22:59 Intake Total 1055.5 317.5 Output Total 500 Balance 555.5 317.5 Weight 192 lb 14.472 oz Intake: IV 94 195 Intake, IV Amount 961.5 122.5 Right Distal Port 800 100 Internal Jugular Right Medial Port 161.5 22.5 Internal Jugular Output: Urine 500 Urethral (Zambrano) 500 Other: # Bowel Movements 1 - Medications Active Medications: Active Medications Generic Name Dose Route Start Last Admin Trade Name Freq PRN Reason Stop Dose Admin Acetaminophen 650 mg 12/28/16 10:15 Tylenol 325mg Tab PO Q4H PRN Pain, Mild (1-3) Acetylcysteine 4 ml 12/27/16 08:00 12/29/16 16:01 Acetylcysteine 20% IH 4 ml RQID PARK Administration Albuterol/Ipratropium 3 ml 12/26/16 18:00 12/29/16 16:01 Duoneb 3 Mg/0.5 Mg (3 Ml) Ud INH 3 ml RQID PARK Administration Bacitracin 0 gm 12/27/16 09:15 12/29/16 09:30 Bacitracin TOP 1 applic Q8H PARK Administration Enoxaparin Sodium 30 mg 12/27/16 10:00 12/29/16 11:00 Lovenox SC 30 mg DAILY PARK Administration Epoetin Eddy 10,000 unit 12/27/16 09:00 12/29/16 14:00 Procrit SC 10,000 unit MWF PARK Administration Folic Acid 1 mg 12/27/16 10:00 12/29/16 11:00 Folic Acid PEG 1 mg DAILY PARK Administration Guaifenesin 100 mg 12/26/16 16:15 Robitussin PO Q4H PRN Cough Meropenem 1 gm/ Sodium 100 mls @ 100 mls/hr 12/26/16 17:00 12/29/16 12:59 Chloride IVPB 100 mls/hr Q8 PARK Administration Norepinephrine Bitartrate 4 mg 254 mls @ 15.24 mls/hr 12/28/16 12:32 15:28 / Sodium Chloride IV 6 mcg/min .[id number] PRN 22.86 mls/hr TITRATE PER MD ORDER Administration Protocol 4 MCG/MIN Sodium Chloride 1,000 mls @ 100 mls/hr 12/28/16 13:30 12/29/16 03:50 Sodium Chloride 0.45% IV 100 mls/hr .Q10H PARK Administration Ampicillin 2 gm/ Sodium 100 mls @ 100 mls/hr 12/29/16 11:00 12/29/16 12:57 Chloride IVPB 100 mls/hr Q6H PARK Administration Insulin Human Regular 0 unit 12/26/16 18:00 12/29/16 12:48 Novolin R SC Not Given Q6H [facility] Protocol Magnesium Hydroxide 30 ml 12/26/16 16:14 Milk Of Magnesia PEG DAILY PRN Constipation Pantoprazole Sodium 40 mg 12/28/16 10:00 12/29/16 11:00 Protonix Inj IVP 40 mg DAILY PARK Administration Silver Sulfadiazine 0.02 ea 12/26/16 16:45 12/29/16 09:30 Silvadene 1% 20 Gm TOP 1 gm Q8H PARK Administration - Patient Studies Lab Studies: Microbiology Studies 12/26/16 16:28 Wound Culture - Preliminary Abdomen Vancomycin Res E.faecalis Proteus Mirabilis Klebsiella Pneumoniae Ssp Pneu 12/26/16 18:00 Blood Culture - Preliminary Blood NO GROWTH AFTER 48 HOURS 12/26/16 18:00 Blood Culture - Preliminary Blood NO GROWTH AFTER 48 HOURS Lab Studies 12/29/16 12/29/16 12/29/16 Range/Units 12:02 06:08 06:05 WBC 10.7 (4.8-10.8) K/uL RBC 2.67 L (3.80-5.20) Mil/uL Hgb 7.3 L (11.0-16.0) g/dL Hct 24.5 L (34.0-47.0) % MCV 91.8 D (81.0-99.0) fL MCH 27.3 (27.0-31.0) pg MCHC 29.7 L (33.0-37.0) g/dL RDW 20.1 H (11.5-14.5) % Plt Count 128 L D (130-400) K/uL MPV 13.5 H (7.2-11.7) fL Neut % (Auto) 86.5 H (50.0-75.0) % Lymph % (Auto) 6.1 L (20.0-40.0) % [place] % (Auto) 1.9 (0.0-10.0) % Eos % (Auto) 5.3 H (0.0-4.0) % Baso % (Auto) 0.2 (0.0-2.0) % Neut # 9.2 H (1.8-7.0) K/uL Lymph # 0.6 L (1.0-4.3) K/uL [place] # 0.2 (0.0-0.8) K/uL Eos # 0.6 (0.0-0.7) K/uL Baso # 0.0 (0.0-0.2) K/uL Neutrophils % (Manual) 80 H (50-75) % Band Neutrophils % 8 H (0-2) % Lymphocytes % (Manual) 5 L (20-40) % Monocytes % (Manual) 1 (0-10) % Eosinophils % (Manual) 5 H (0-4) % Myelocytes % 1 H (0-0) % Platelet Estimate Slightly decreased L (NORMAL) Hypochromasia (manual) Slight Poikilocytosis (manual Slight Anisocytosis (manual) Slight Target Cells Slight Puncture Site pCO2 (35-45) mm/Hg pO2 (80-100) mm/Hg HCO3 (21-28) mmol/L ABG pH (7.35-7.45) ABG Total CO2 (22-28) mmol/L ABG O2 Saturation (95-98) % ABG Base Excess (-2.0-3.0) mmol/L ABG Hemoglobin (11.7-17.4) g/dL ABG Carboxyhemoglobin (0.5-1.5) % POC ABG HHb (Measured) (0.0-5.0) % ABG Methemoglobin (0.0-3.0) % Marcos Test A-a O2 Difference mm/Hg Respiratory Index Hgb O2 Saturation (95.0-98.0) % FiO2 % Inspiratory BiPAP Expiratory BiPAP Sodium 165 H* (132-148) mmol/L Potassium 3.4 L (3.6-5.2) mmol/L Chloride 129 H (98-107) mmol/L Carbon Dioxide 29 (22-30) mmol/L Anion Gap 10 (10-20) BUN 50 H (7-17) mg/dL Creatinine 0.9 (0.7-1.2) MG/DL Est GFR ( Amer) > 60 Est GFR (Non-Af Amer) > 60 POC Glucose (mg/dL) 86 (65-110) mg/dL Random Glucose 86 (65-105) mg/dL Calcium 7.8 L (8.6-10.4) mg/dl Phosphorus 4.4 (2.5-4.5) mg/dL Magnesium 2.9 H (1.6-2.3) mg/dL Total Bilirubin < 0.1 L (0.2-1.3) mg/dL AST 30 (14-36) U/L ALT 36 (9-52) U/L Alkaline Phosphatase 100 (38-126) U/L Total Protein 5.5 L (6.3-8.3) g/dL Albumin 2.0 L (3.5-5.0) g/dL Globulin 3.6 (2.2-3.9) gm/dL Albumin/Globulin Ratio 0.6 L (1.0-2.1) 12/29/16 12/29/16 12/29/16 Range/Units 05:50 05:16 00:00 WBC (4.8-10.8) K/uL RBC (3.80-5.20) Mil/uL Hgb (11.0-16.0) g/dL Hct (34.0-47.0) % MCV (81.0-99.0) fL MCH (27.0-31.0) pg MCHC (33.0-37.0) g/dL RDW (11.5-14.5) % Plt Count (130-400) K/uL MPV (7.2-11.7) fL Neut % (Auto) (50.0-75.0) % Lymph % (Auto) (20.0-40.0) % [place] % (Auto) (0.0-10.0) % Eos % (Auto) (0.0-4.0) % Baso % (Auto) (0.0-2.0) % Neut # (1.8-7.0) K/uL Lymph # (1.0-4.3) K/uL [place] # (0.0-0.8) K/uL Eos # (0.0-0.7) K/uL Baso # (0.0-0.2) K/uL Neutrophils % (Manual) (50-75) % Band Neutrophils % (0-2) % Lymphocytes % (Manual) (20-40) % Monocytes % (Manual) (0-10) % Eosinophils % (Manual) (0-4) % Myelocytes % (0-0) % Platelet Estimate (NORMAL) Hypochromasia (manual) Poikilocytosis (manual Anisocytosis (manual) Target Cells Puncture Site Rr pCO2 52 H (35-45) mm/Hg pO2 193 H (80-100) mm/Hg HCO3 25.9 (21-28) mmol/L ABG pH 7.33 L (7.35-7.45) ABG Total CO2 29.0 H (22-28) mmol/L ABG O2 Saturation 100.1 H (95-98) % ABG Base Excess 1.2 (-2.0-3.0) mmol/L ABG Hemoglobin 7.3 L (11.7-17.4) g/dL ABG Carboxyhemoglobin 2.0 H (0.5-1.5) % POC ABG HHb (Measured) -0.1 L (0.0-5.0) % ABG Methemoglobin 1.8 (0.0-3.0) % Marcos Test Pos A-a O2 Difference 312.0 mm/Hg Respiratory Index 1.6 Hgb O2 Saturation 96.4 (95.0-98.0) % FiO2 80.0 % Inspiratory BiPAP 16 Expiratory BiPAP 8 Sodium (132-148) mmol/L Potassium (3.6-5.2) mmol/L Chloride (98-107) mmol/L Carbon Dioxide (22-30) mmol/L Anion Gap (10-20) BUN (7-17) mg/dL Creatinine (0.7-1.2) MG/DL Est GFR ( Amer) Est GFR (Non-Af Amer) POC Glucose (mg/dL) 106 125 H (65-110) mg/dL Random Glucose (65-105) mg/dL Calcium (8.6-10.4) mg/dl Phosphorus (2.5-4.5) mg/dL Magnesium (1.6-2.3) mg/dL Total Bilirubin (0.2-1.3) mg/dL AST (14-36) U/L ALT (9-52) U/L Alkaline Phosphatase (38-126) U/L Total Protein (6.3-8.3) g/dL Albumin (3.5-5.0) g/dL Globulin (2.2-3.9) gm/dL Albumin/Globulin Ratio (1.0-2.1) 12/28/16 Range/Units 17:51 WBC (4.8-10.8) K/uL RBC (3.80-5.20) Mil/uL Hgb (11.0-16.0) g/dL Hct (34.0-47.0) % MCV (81.0-99.0) fL MCH (27.0-31.0) pg MCHC (33.0-37.0) g/dL RDW (11.5-14.5) % Plt Count (130-400) K/uL MPV (7.2-11.7) fL Neut % (Auto) (50.0-75.0) % Lymph % (Auto) (20.0-40.0) % [place] % (Auto) (0.0-10.0) % Eos % (Auto) (0.0-4.0) % Baso % (Auto) (0.0-2.0) % Neut # (1.8-7.0) K/uL Lymph # (1.0-4.3) K/uL [place] # (0.0-0.8) K/uL Eos # (0.0-0.7) K/uL Baso # (0.0-0.2) K/uL Neutrophils % (Manual) (50-75) % Band Neutrophils % (0-2) % Lymphocytes % (Manual) (20-40) % Monocytes % (Manual) (0-10) % Eosinophils % (Manual) (0-4) % Myelocytes % (0-0) % Platelet Estimate (NORMAL) Hypochromasia (manual) Poikilocytosis (manual Anisocytosis (manual) Target Cells Puncture Site pCO2 (35-45) mm/Hg pO2 (80-100) mm/Hg HCO3 (21-28) mmol/L ABG pH (7.35-7.45) ABG Total CO2 (22-28) mmol/L ABG O2 Saturation (95-98) % ABG Base Excess (-2.0-3.0) mmol/L ABG Hemoglobin (11.7-17.4) g/dL ABG Carboxyhemoglobin (0.5-1.5) % POC ABG HHb (Measured) (0.0-5.0) % ABG Methemoglobin (0.0-3.0) % Marcos Test A-a O2 Difference mm/Hg Respiratory Index Hgb O2 Saturation (95.0-98.0) % FiO2 % Inspiratory BiPAP Expiratory BiPAP Sodium (132-148) mmol/L Potassium (3.6-5.2) mmol/L Chloride (98-107) mmol/L Carbon Dioxide (22-30) mmol/L Anion Gap (10-20) BUN (7-17) mg/dL Creatinine (0.7-1.2) MG/DL Est GFR ( Amer) Est GFR (Non-Af Amer) POC Glucose (mg/dL) 112 H (65-110) mg/dL Random Glucose (65-105) mg/dL Calcium (8.6-10.4) mg/dl Phosphorus (2.5-4.5) mg/dL Magnesium (1.6-2.3) mg/dL Total Bilirubin (0.2-1.3) mg/dL AST (14-36) U/L ALT (9-52) U/L Alkaline Phosphatase (38-126) U/L Total Protein (6.3-8.3) g/dL Albumin (3.5-5.0) g/dL Globulin (2.2-3.9) gm/dL Albumin/Globulin Ratio (1.0-2.1) Laboratory Results - last 24 hr 12/28/16 12/29/16 12/29/16 17:51 00:00 05:16 WBC RBC Hgb Hct MCV MCH MCHC RDW Plt Count MPV Neut % (Auto) Lymph % (Auto) [place] % (Auto) Eos % (Auto) Baso % (Auto) Neut # Lymph # [place] # Eos # Baso # Neutrophils % (Manual) Band Neutrophils % Lymphocytes % (Manual) Monocytes % (Manual) Eosinophils % (Manual) Myelocytes % Platelet Estimate Hypochromasia (manual) Poikilocytosis (manual Anisocytosis (manual) Target Cells Puncture Site Rr pCO2 52 H pO2 193 H HCO3 25.9 ABG pH 7.33 L ABG Total CO2 29.0 H ABG O2 Saturation 100.1 H ABG Base Excess 1.2 ABG Hemoglobin 7.3 L ABG Carboxyhemoglobin 2.0 H POC ABG HHb (Measured) -0.1 L ABG Methemoglobin 1.8 Marcos Test Pos A-a O2 Difference 312.0 Respiratory Index 1.6 Hgb O2 Saturation 96.4 FiO2 80.0 Inspiratory BiPAP 16 Expiratory BiPAP 8 Sodium Potassium Chloride Carbon Dioxide Anion Gap BUN Creatinine Est GFR ( Amer) Est GFR (Non-Af Amer) POC Glucose (mg/dL) 112 H 125 H Random Glucose Calcium Phosphorus Magnesium Total Bilirubin AST ALT Alkaline Phosphatase Total Protein Albumin Globulin Albumin/Globulin Ratio 12/29/16 12/29/16 12/29/16 05:50 06:05 06:08 WBC 10.7 RBC 2.67 L Hgb 7.3 L Hct 24.5 L MCV 91.8 D MCH 27.3 MCHC 29.7 L RDW 20.1 H Plt Count 128 L D MPV 13.5 H Neut % (Auto) 86.5 H Lymph % (Auto) 6.1 L Madison % (Auto) 1.9 Eos % (Auto) 5.3 H Baso % (Auto) 0.2 Neut # 9.2 H Lymph # 0.6 L Madison # 0.2 Eos # 0.6 Baso # 0.0 Neutrophils % (Manual) 80 H Band Neutrophils % 8 H Lymphocytes % (Manual) 5 L Monocytes % (Manual) 1 Eosinophils % (Manual) 5 H Myelocytes % 1 H Platelet Estimate Slightly decreased L Hypochromasia (manual) Slight Poikilocytosis (manual Slight Anisocytosis (manual) Slight Target Cells Slight Puncture Site pCO2 pO2 HCO3 ABG pH ABG Total CO2 ABG O2 Saturation ABG Base Excess ABG Hemoglobin ABG Carboxyhemoglobin POC ABG HHb (Measured) ABG Methemoglobin Marcos Test A-a O2 Difference Respiratory Index Hgb O2 Saturation FiO2 Inspiratory BiPAP Expiratory BiPAP Sodium 165 H* Potassium 3.4 L Chloride 129 H Carbon Dioxide 29 Anion Gap 10 BUN 50 H Creatinine 0.9 Est GFR ( Amer) > 60 Est GFR (Non-Af Amer) > 60 POC Glucose (mg/dL) 106 Random Glucose 86 Calcium 7.8 L Phosphorus 4.4 Magnesium 2.9 H Total Bilirubin < 0.1 L AST 30 ALT 36 Alkaline Phosphatase 100 Total Protein 5.5 L Albumin 2.0 L Globulin 3.6 Albumin/Globulin Ratio 0.6 L 12/29/16 12:02 WBC RBC Hgb Hct MCV MCH MCHC RDW Plt Count MPV Neut % (Auto) Lymph % (Auto) Madison % (Auto) Eos % (Auto) Baso % (Auto) Neut # Lymph # Madison # Eos # Baso # Neutrophils % (Manual) Band Neutrophils % Lymphocytes % (Manual) Monocytes % (Manual) Eosinophils % (Manual) Myelocytes % Platelet Estimate Hypochromasia (manual) Poikilocytosis (manual Anisocytosis (manual) Target Cells Puncture Site pCO2 pO2 HCO3 ABG pH ABG Total CO2 ABG O2 Saturation ABG Base Excess ABG Hemoglobin ABG Carboxyhemoglobin POC ABG HHb (Measured) ABG Methemoglobin Marcos Test A-a O2 Difference Respiratory Index Hgb O2 Saturation FiO2 Inspiratory BiPAP Expiratory BiPAP Sodium Potassium Chloride Carbon Dioxide Anion Gap BUN Creatinine Est GFR ( Amer) Est GFR (Non-Af Amer) POC Glucose (mg/dL) 86 Random Glucose Calcium Phosphorus Magnesium Total Bilirubin AST ALT Alkaline Phosphatase Total Protein Albumin Globulin Albumin/Globulin Ratio Attending/Attestation - Attestation I have personally seen and examined this patient.: Yes I have fully participated in the care of the patient.: Yes I have reviewed all pertinent clinical information: Yes Notes (Text): 12/29/16 16:15 Patient seen and examined in the intensive care unit. Case discussed with house staff in the morning rounds. 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
--- NOTE | 2016-12-29 12:10 | RAD ---
HISTORY: PNA, follow up, on bipap COMPARISON: Comparison chest 12/28/2016 FINDINGS: LUNGS: No change right IJ central venous line with tip in the SVC. Poor inspiration with low lung volumes, crowded bronchovascular markings and bibasilar atelectasis. Patchy bilateral infiltrates in the mid to lower lung zones also felt to be present. Suspect bilateral effusions left larger than right PLEURA: No apparent pneumothorax. CARDIOVASCULAR: Cardiomegaly. OSSEOUS STRUCTURES: No significant abnormalities. VISUALIZED UPPER ABDOMEN: Normal. OTHER FINDINGS: None. IMPRESSION: No change right IJ central venous line with tip in the SVC. Poor inspiration with low lung volumes, crowded bronchovascular markings and bibasilar atelectasis. Patchy bilateral infiltrates in the mid to lower lung zones also felt to be present. Suspect bilateral effusions left larger than right
[2016-12-29] MEDS: Epoetin Alfa 10,000 unit/ml Dialysis SC SCH (14:00)
--- NOTE | 2016-12-29 16:08 | CP.PCM.PN ---
Subjective - Date & Time of Evaluation Date of Evaluation: 12/29/16 Time of Evaluation: 09:00 - Subjective Subjective: CULTURES NOTED IV RX ADJUSTED Objective - Vital Signs/Intake and Output Vital Signs (last 24 hours): Temp Pulse Resp BP Pulse Ox 98.8 F 68 25 H 76/38 L 100 12/29/16 04:00 12/29/16 16:02 12/29/16 15:28 12/29/16 15:28 12/29/16 15:28 Intake and Output: 12/29/16 12/29/16 06:59 18:59 Intake Total 1734.4 317.5 Output Total 500 Balance 1234.4 317.5 - Medications Medications: Current Medications Acetaminophen (Tylenol 325mg Tab) 650 mg PO Q4H PRN PRN Reason: Pain, Mild (1-3) Acetylcysteine (Acetylcysteine 20%) 4 ml IH RQID [facility] Last Admin: 12/29/16 16:01 Dose: 4 ml Albuterol/Ipratropium (Duoneb 3 Mg/0.5 Mg (3 Ml) Ud) 3 ml INH RQID [facility] Last Admin: 12/29/16 16:01 Dose: 3 ml Bacitracin (Bacitracin) 0 gm TOP Q8H [facility] Last Admin: 12/29/16 09:30 Dose: 1 applic Enoxaparin Sodium (Lovenox) 30 mg SC DAILY [facility] Last Admin: 12/29/16 11:00 Dose: 30 mg Epoetin Eddy (Procrit) 10,000 unit SC MWF [facility] Last Admin: 12/29/16 14:00 Dose: 10,000 unit Folic Acid (Folic Acid) 1 mg PEG DAILY [facility] Last Admin: 12/29/16 11:00 Dose: 1 mg Guaifenesin (Robitussin) 100 mg PO Q4H PRN PRN Reason: Cough Meropenem 1 gm/ Sodium (Chloride) 100 mls @ 100 mls/hr IVPB Q8 [facility] Last Admin: 12/29/16 12:59 Dose: 100 mls/hr Norepinephrine Bitartrate 4 mg (/ Sodium Chloride) 254 mls @ 15.24 mls/hr IV .[id number] PRN; Protocol; 4 MCG/MIN PRN Reason: TITRATE PER MD ORDER Last Admin: 12/29/16 15:28 Dose: 6 mcg/min, 22.86 mls/hr Sodium Chloride (Sodium Chloride 0.45%) 1,000 mls @ 100 mls/hr IV .Q10H [facility] Last Admin: 12/29/16 03:50 Dose: 100 mls/hr Ampicillin 2 gm/ Sodium (Chloride) 100 mls @ 100 mls/hr IVPB Q6H [facility] Last Admin: 12/29/16 12:57 Dose: 100 mls/hr Insulin Human Regular (Novolin R) 0 unit SC Q6H [facility] PRN Reason: Protocol Last Admin: 12/29/16 12:48 Dose: Not Given Magnesium Hydroxide (Milk Of Magnesia) 30 ml PEG DAILY PRN PRN Reason: Constipation Pantoprazole Sodium (Protonix Inj) 40 mg IVP DAILY [facility] Last Admin: 12/29/16 11:00 Dose: 40 mg Silver Sulfadiazine (Silvadene 1% 20 Gm) 0.02 ea TOP Q8H [facility] Last Admin: 12/29/16 09:30 Dose: 1 gm - Labs Labs: 12/29/16 06:08 12/29/16 06:05 PT 14.4 SECONDS (9.7-12.2) H 12/26/16 14:35 INR 1.3 12/26/16 14:35 APTT 33 SECONDS (21-34) 12/26/16 14:35 - Constitutional Appears: Confused, Cachectic, Chronically Ill - Head Exam Head Exam: NORMOCEPHALIC - Eye Exam Eye Exam: PERRL. absent: Scleral icterus - ENT Exam ENT Exam: Mucous Membranes Dry, Normal External Ear Exam - Neck Exam Neck Exam: absent: Lymphadenopathy - Respiratory Exam Respiratory Exam: Decreased Breath Sounds, Rhonchi - Cardiovascular Exam Cardiovascular Exam: REGULAR RHYTHM, +S1, +S2 - GI/Abdominal Exam GI & Abdominal Exam: Distended, Soft. absent: Tenderness - Rectal Exam Rectal Exam: Deferred - Exam Exam: NORMAL INSPECTION - Extremities Exam Extremities Exam: absent: Pedal Edema - Back Exam Back Exam: absent: CVA tenderness (L), CVA tenderness (R) - Neurological Exam Neurological Exam: Altered Assessment and Plan (1) Acute hypernatremia Status: Acute (2) Blood bacterial culture positive Status: Acute (3) COPD with lower respiratory infection Status: Acute (4) CVA (cerebral vascular accident) Status: Acute (5) Pneumonia Status: Acute (6) Sepsis Status: Acute (7) Sepsis with metabolic encephalopathy Status: Acute (8) Septic shock Status: Acute
--- NOTE | 2016-12-29 18:19 | CP.PCM.PN ---
Subjective - Date & Time of Evaluation Date of Evaluation: 12/29/16 Time of Evaluation: 15:00 - Subjective Subjective: clinically same Objective - Vital Signs/Intake and Output Vital Signs (last 24 hours): Temp Pulse Resp BP Pulse Ox 97.3 F L 70 29 H 83/45 L 98 12/29/16 16:00 12/29/16 18:01 12/29/16 18:01 12/29/16 18:01 12/29/16 18:01 Intake and Output: 12/29/16 12/29/16 06:59 18:59 Intake Total 1734.4 1725.0 Output Total 500 790 Balance 1234.4 935.0 - Medications Medications: Current Medications Acetaminophen (Tylenol 325mg Tab) 650 mg PO Q4H PRN PRN Reason: Pain, Mild (1-3) Acetylcysteine (Acetylcysteine 20%) 4 ml IH RQID [facility] Last Admin: 12/29/16 16:01 Dose: 4 ml Albuterol/Ipratropium (Duoneb 3 Mg/0.5 Mg (3 Ml) Ud) 3 ml INH RQID [facility] Last Admin: 12/29/16 16:01 Dose: 3 ml Bacitracin (Bacitracin) 0 gm TOP Q8H [facility] Last Admin: 12/29/16 18:14 Dose: 1 applic Enoxaparin Sodium (Lovenox) 30 mg SC DAILY [facility] Last Admin: 12/29/16 11:00 Dose: 30 mg Epoetin Eddy (Procrit) 10,000 unit SC MWF [facility] Last Admin: 12/29/16 14:00 Dose: 10,000 unit Folic Acid (Folic Acid) 1 mg PEG DAILY [facility] Last Admin: 12/29/16 11:00 Dose: 1 mg Guaifenesin (Robitussin) 100 mg PO Q4H PRN PRN Reason: Cough Meropenem 1 gm/ Sodium (Chloride) 100 mls @ 100 mls/hr IVPB Q8 [facility] Last Admin: 12/29/16 12:59 Dose: 100 mls/hr Norepinephrine Bitartrate 4 mg (/ Sodium Chloride) 254 mls @ 15.24 mls/hr IV .[id number] PRN; Protocol; 4 MCG/MIN PRN Reason: TITRATE PER MD ORDER Last Admin: 12/29/16 15:28 Dose: 6 mcg/min, 22.86 mls/hr Sodium Chloride (Sodium Chloride 0.45%) 1,000 mls @ 100 mls/hr IV .Q10H [facility] Last Admin: 12/29/16 18:15 Dose: 100 mls/hr Ampicillin 2 gm/ Sodium (Chloride) 100 mls @ 100 mls/hr IVPB Q6H [facility] Last Admin: 12/29/16 18:13 Dose: 100 mls/hr Insulin Human Regular (Novolin R) 0 unit SC Q6H [facility] PRN Reason: Protocol Last Admin: 12/29/16 18:11 Dose: Not Given Magnesium Hydroxide (Milk Of Magnesia) 30 ml PEG DAILY PRN PRN Reason: Constipation Pantoprazole Sodium (Protonix Inj) 40 mg IVP DAILY [facility] Last Admin: 12/29/16 11:00 Dose: 40 mg Silver Sulfadiazine (Silvadene 1% 20 Gm) 0.02 ea TOP Q8H [facility] Last Admin: 12/29/16 18:14 Dose: 1 gm - Labs Labs: 12/29/16 06:08 12/29/16 06:05 PT 14.4 SECONDS (9.7-12.2) H 12/26/16 14:35 INR 1.3 12/26/16 14:35 APTT 33 SECONDS (21-34) 12/26/16 14:35 - Constitutional Appears: Well - Head Exam Head Exam: ATRAUMATIC, NORMAL INSPECTION, NORMOCEPHALIC - Eye Exam Eye Exam: EOMI, Normal appearance, PERRL Pupil Exam: NORMAL ACCOMODATION, PERRL - ENT Exam ENT Exam: Mucous Membranes Moist, Normal Exam - Neck Exam Neck Exam: Full ROM, Normal Inspection. absent: Lymphadenopathy - Respiratory Exam Respiratory Exam: Decreased Breath Sounds - Cardiovascular Exam Cardiovascular Exam: REGULAR RHYTHM, +S1, +S2 - GI/Abdominal Exam GI & Abdominal Exam: Soft, Diminished Bowel Sounds - Rectal Exam Rectal Exam: Deferred Assessment and Plan (1) Acute hypernatremia Status: Acute (2) Blood bacterial culture positive Status: Acute (3) COPD with lower respiratory infection Status: Acute (4) CVA (cerebral vascular accident) Status: Acute (5) Cellulitis Status: Acute (6) Contusion Status: Acute (7) Dehydration Status: Acute (8) Fever and chills Status: Acute (9) Gastrostomy tube obstruction Status: Acute (10) Hypernatremia Status: Acute (11) PEG (percutaneous endoscopic gastrostomy) adjustment/replacement/removal Status: Acute (12) Physical debility Status: Acute (13) Pneumonia Status: Acute (14) Pneumonia Status: Acute (15) Sacral decubitus ulcer, stage III Status: Acute (16) Senile debility Status: Acute (17) Sepsis Status: Acute (18) Sepsis Status: Acute (19) Sepsis with metabolic encephalopathy Status: Acute (20) Septic shock Status: Acute (21) Abnormal CXR (chest x-ray) Status: Chronic (22) Aspiration into lower respiratory tract Status: Chronic (23) Dementia Status: Chronic - Assessment and Plan (Free Text) Plan: Follow-up GI Follow-up ID Follow-up hadoop architect Follow-up district or district office director Patient is on BiPAP Continue antibiotic Culture positive noted Continue IV fluids Follow-up with labs
[2016-12-30] MEDS: Bacitracin Ointment 30 GM TUBE TOP SCH ×2 (00:35→09:28)
[2016-12-30] MEDS: Silver Sulfadiazine 1% Cream (20 gm) TOP SCH (00:35)
[2016-12-30] MEDS: Sodium Chloride 0.45% 1,000 ML IV SCH (05:30)
[2016-12-30] MEDS: (Novolin R) Insulin Human Regular 100 units/ml vial SC SCH ×3 (06:00→12:38)
[2016-12-30] MEDS: Meropenem 1 GM in Sodium Chloride 0.9% 100 ML IVPB SCH (06:10)
[2016-12-30] MEDS: Acetylcysteine 20% Inhal Soln (4ml) IH SCH (07:21)
[2016-12-30] MEDS: Albuterol-Ipratrop 3 mg / 0.5 (3 ml) UD INH SCH ×2 (07:21→12:04)
--- NOTE | 2016-12-30 09:22 | CP.PCM.PN ---
Subjective - Date & Time of Evaluation Date of Evaluation: 12/30/16 Time of Evaluation: 13:20 - Subjective Subjective: clinically same Objective - Vital Signs/Intake and Output Vital Signs (last 24 hours): Temp Pulse Resp BP Pulse Ox 98.2 F 71 35 H 91/39 L 98 12/30/16 08:00 12/30/16 08:59 12/30/16 08:59 12/30/16 09:02 12/30/16 08:59 Intake and Output: 12/30/16 12/30/16 06:59 18:59 Intake Total 2004.0 427.5 Output Total 560 50 Balance 1444.0 377.5 - Medications Medications: Current Medications Acetaminophen (Tylenol 325mg Tab) 650 mg PO Q4H PRN PRN Reason: Pain, Mild (1-3) Acetylcysteine (Acetylcysteine 20%) 4 ml IH RQID [facility] Last Admin: 12/30/16 07:21 Dose: 4 ml Albuterol/Ipratropium (Duoneb 3 Mg/0.5 Mg (3 Ml) Ud) 3 ml INH RQID [facility] Last Admin: 12/30/16 07:21 Dose: 3 ml Bacitracin (Bacitracin) 0 gm TOP Q8H [facility] Last Admin: 12/30/16 00:35 Dose: 1 applic Enoxaparin Sodium (Lovenox) 30 mg SC DAILY [facility] Last Admin: 12/29/16 11:00 Dose: 30 mg Epoetin Eddy (Procrit) 10,000 unit SC MWF [facility] Last Admin: 12/29/16 14:00 Dose: 10,000 unit Folic Acid (Folic Acid) 1 mg PEG DAILY [facility] Last Admin: 12/29/16 11:00 Dose: 1 mg Guaifenesin (Robitussin) 100 mg PO Q4H PRN PRN Reason: Cough Meropenem 1 gm/ Sodium (Chloride) 100 mls @ 100 mls/hr IVPB Q8 [facility] Last Admin: 12/30/16 06:10 Dose: 100 mls/hr Norepinephrine Bitartrate 4 mg (/ Sodium Chloride) 254 mls @ 15.24 mls/hr IV .[id number] PRN; Protocol; 4 MCG/MIN PRN Reason: TITRATE PER MD ORDER Last Admin: 12/30/16 04:00 Dose: 6 mcg/min, 22.86 mls/hr Sodium Chloride (Sodium Chloride 0.45%) 1,000 mls @ 100 mls/hr IV .Q10H [facility] Last Admin: 12/30/16 05:30 Dose: Not Given Ampicillin 2 gm/ Sodium (Chloride) 100 mls @ 100 mls/hr IVPB Q6H [facility] Last Admin: 12/30/16 04:30 Dose: 100 mls/hr Insulin Human Regular (Novolin R) 0 unit SC Q6H [facility] PRN Reason: Protocol Last Admin: 12/30/16 06:00 Dose: Not Given Magnesium Hydroxide (Milk Of Magnesia) 30 ml PEG DAILY PRN PRN Reason: Constipation Pantoprazole Sodium (Protonix Inj) 40 mg IVP DAILY [facility] Last Admin: 12/29/16 11:00 Dose: 40 mg Silver Sulfadiazine (Silvadene 1% 20 Gm) 0.02 ea TOP Q8H [facility] Last Admin: 12/30/16 00:35 Dose: 0.02 gm - Labs Labs: 12/29/16 06:08 12/29/16 06:05 PT 14.4 SECONDS (9.7-12.2) H 12/26/16 14:35 INR 1.3 12/26/16 14:35 APTT 33 SECONDS (21-34) 12/26/16 14:35 - Constitutional Appears: Well - Head Exam Head Exam: ATRAUMATIC, NORMAL INSPECTION, NORMOCEPHALIC - Eye Exam Eye Exam: EOMI, Normal appearance, PERRL Pupil Exam: NORMAL ACCOMODATION, PERRL - ENT Exam ENT Exam: Mucous Membranes Moist, Normal Exam - Neck Exam Neck Exam: Full ROM, Normal Inspection. absent: Lymphadenopathy - Respiratory Exam Respiratory Exam: Decreased Breath Sounds - Cardiovascular Exam Cardiovascular Exam: REGULAR RHYTHM, +S1, +S2 - GI/Abdominal Exam GI & Abdominal Exam: Soft, Diminished Bowel Sounds - Rectal Exam Rectal Exam: Deferred Assessment and Plan (1) Acute hypernatremia Status: Acute (2) Blood bacterial culture positive Status: Acute (3) COPD with lower respiratory infection Status: Acute (4) CVA (cerebral vascular accident) Status: Acute (5) Cellulitis Status: Acute (6) Contusion Status: Acute (7) Dehydration Status: Acute (8) Fever and chills Status: Acute (9) Gastrostomy tube obstruction Status: Acute (10) Hypernatremia Status: Acute (11) PEG (percutaneous endoscopic gastrostomy) adjustment/replacement/removal Status: Acute (12) Physical debility Status: Acute (13) Pneumonia Status: Acute (14) Pneumonia Status: Acute (15) Sacral decubitus ulcer, stage III Status: Acute (16) Senile debility Status: Acute (17) Sepsis Status: Acute (18) Sepsis Status: Acute (19) Sepsis with metabolic encephalopathy Status: Acute (20) Septic shock Status: Acute (21) Abnormal CXR (chest x-ray) Status: Chronic (22) Aspiration into lower respiratory tract Status: Chronic (23) Dementia Status: Chronic - Assessment and Plan (Free Text) Plan: Spoke with daughters over patient's condition was declining Daughters were discussed about the process of withdrawal of life support and expected date both daughters stated feeling comfortable with that decision Patient is on high-dose of oxygen via CPAP Patient is on morphine
[2016-12-30] MEDS: Enoxaparin 30 mg Syringe SC SCH (09:28)
[2016-12-30 11:59] LABS: DRAW SITE VBG; VENOUS BLOOD GAS BASE EXCESS 0.8 mmol/L (0.0-2.0); VENOUS BLOOD GAS PCO2 49 mmHg (40-60); VENOUS BLOOD PH 7.35 (7.32-7.43)
--- NOTE | 2016-12-30 15:29 | CP.CCUPN ---
CCU Subjective - Physician Review Events Since Last Encounter (Free Text): 12/30/16 15:18 Patient seen and examined at bedside. On very poor clinical condition, still requiring levophed at 6 mg/mn and bipap 04/02, pulling only 250-350 mL of TV. Mental status if very poor, opens eyes to voice, but does not follow with sight. ros unable pe: bp 101/50 mmhg, hr 69, O2 97% 60% FiO2, afebrile opens eyes to voice, does not follow commands lungs poor bilateral air of entry, decreased lungs sounds s1, s2 distant abdomen global, soft, skin around peg tube with some pus drainage, right side looks red stage IV sacral ulcer a/p: septic shock, pneumonia, abdominal wall infections: added vancomycin [address] Daniel Ordered 1 Unit of rbc to decrease pressor requirement, Hb around 7 I spoke to her 2 daughters, Vera Kim and Keanu Jeffers. I have explained her that in order for her to have a change to overcome this acute phase she needs aggressive support, including intubation, but she has been made DNR/DNI by the family. She has a very poor quality of life, demented, [place] [facility] dependant, contracted, with a peg. Regardless of aggressive support her prognosis is still poor and her quality of life will not improve. Family has decided to stop treatment and focus on comfort, they have been spoken about palliative care in the past by Dr. Magallanes. Will stop care and start morphine drip. CCU Objective - Vital Signs / Intake & Output Vital Signs (Last 4 hours): Vital Signs Temp Pulse Resp BP Pulse Ox 12/30/16 13:20 79 12/30/16 12:06 79 12/30/16 12:01 80 37 H 104/52 L 94 L 12/30/16 12:00 98.7 F 75 40 H 96 Intake and Output (Last 8hrs): Intake & Output 12/30/16 12/30/16 12/30/16 06:59 14:59 22:59 Intake Total 1394.0 955.0 Output Total 500 180 Balance 894.0 775.0 Weight 190 lb 11.198 oz Intake: IV 254 Intake, IV Amount 980.0 735.0 Right Distal Port 800 600 Internal Jugular Right Medial Port 180.0 135.0 Internal Jugular Tube Feeding 160 120 Other 100 Output: Urine 500 180 Urethral (Fraser) 500 180 Other: # Bowel Movements 1 1 - Physical Exam Head: Positive for: Atraumatic, Normocephalic Pupils: Positive for: PERRL Respiratory/Chest: Positive for: Clear to Auscultation, Good Air Exchange Cardiovascular: Positive for: Normal S1, S2 Abdomen: Positive for: Normal Bowel Sounds. Negative for: Distention Upper Extremity: Positive for: NORMAL PULSES, Neurovascularly Intact Lower Extremity: Positive for: NORMAL PULSES, Neurovascularly Intact Skin: Positive for: Warm, Dry Psychiatric: Positive for: Alert. Negative for: Oriented x 3 - Medications Active Medications: Active Medications Generic Name Dose Route Start Last Admin Trade Name Freq PRN Reason Stop Dose Admin Morphine Sulfate 250 mg/ 250 mls @ 6 mls/hr 12/30/16 15:11 Sodium Chloride IV 12/31/16 15:10 .Q24H ONE Protocol Lorazepam 2 mg 12/30/16 15:11 Ativan IVP Q30M PRN Anxiety Morphine Sulfate 4 mg 12/30/16 15:13 Morphine IVP 12/30/16 15:14 ONCE ONE - Patient Studies Lab Studies: Microbiology Studies 12/26/16 16:28 Gram Stain - Final Abdomen Wound Culture - Final Vancomycin Res E.faecalis Proteus Mirabilis Klebsiella Pneumoniae Ssp Pneu 12/26/16 18:00 Blood Culture - Preliminary Blood NO GROWTH AFTER 3 DAYS 12/26/16 18:00 Blood Culture - Preliminary Blood NO GROWTH AFTER 3 DAYS Lab Studies 12/30/16 12/30/16 12/30/16 Range/Units 12:10 11:57 11:54 Puncture Site Vbg pO2 38 (30-55) mm/Hg Marcos Test Na VBG pH 7.35 (7.32-7.43) VBG pCO2 49 (40-60) mmHg VBG HCO3 24.8 mmol/L VBG O2 Sat (Calc) 77.1 H (40-65) % VBG Base Excess 0.8 (0.0-2.0) mmol/L POC Glucose (mg/dL) 145 H (65-110) mg/dL Blood Type A POSITIVE Antibody Screen Negative 12/30/16 12/29/16 12/29/16 Range/Units 06:05 23:36 17:52 Puncture Site pO2 (30-55) mm/Hg Marcos Test VBG pH (7.32-7.43) VBG pCO2 (40-60) mmHg VBG HCO3 mmol/L VBG O2 Sat (Calc) (40-65) % VBG Base Excess (0.0-2.0) mmol/L POC Glucose (mg/dL) 138 H 86 103 (65-110) mg/dL Blood Type Antibody Screen Laboratory Results - last 24 hr 12/29/16 12/29/16 12/30/16 17:52 23:36 06:05 Puncture Site pO2 Marcos Test VBG pH VBG pCO2 VBG HCO3 VBG O2 Sat (Calc) VBG Base Excess POC Glucose (mg/dL) 103 86 138 H Blood Type Antibody Screen 12/30/16 12/30/16 12/30/16 11:54 11:57 12:10 Puncture Site Vbg pO2 38 Marcos Test Na VBG pH 7.35 VBG pCO2 49 VBG HCO3 24.8 VBG O2 Sat (Calc) 77.1 H VBG Base Excess 0.8 POC Glucose (mg/dL) 145 H Blood Type A POSITIVE Antibody Screen Negative Fingerstick Blood Sugar Results: 145
[2016-12-30] MEDS ORDERED: Morphine 4 MG/ML VIAL ONE ×2 (15:30→16:03)
--- NOTE | 2016-12-30 15:43 | CP.PCM.PN ---
Subjective - Date & Time of Evaluation Date of Evaluation: 12/30/16 Time of Evaluation: 03:00 - Subjective Subjective: Patient remains unresponsive on high dose of O2 via CPap. Family meeting held regarding goals of care. Objective - Vital Signs/Intake and Output Vital Signs (last 24 hours): Temp Pulse Resp BP Pulse Ox 98.7 F 79 37 H 104/52 L 94 L 12/30/16 12:00 12/30/16 13:20 12/30/16 12:01 12/30/16 12:01 12/30/16 12:01 Intake and Output: 12/30/16 12/30/16 06:59 18:59 Intake Total 2004.0 955.0 Output Total 560 180 Balance 1444.0 775.0 - Medications Medications: Current Medications Morphine Sulfate 250 mg/ (Sodium Chloride) 250 mls @ 6 mls/hr IV .Q24H [facility] PRN Reason: Protocol Stop: 12/31/16 15:10 Lorazepam (Ativan) 2 mg IVP Q30M PRN PRN Reason: Anxiety - Labs Labs: 12/29/16 06:08 12/29/16 06:05 PT 14.4 SECONDS (9.7-12.2) H 12/26/16 14:35 INR 1.3 12/26/16 14:35 APTT 33 SECONDS (21-34) 12/26/16 14:35 - Constitutional Appears: In Acute Distress - Head Exam Head Exam: ATRAUMATIC, NORMAL INSPECTION, NORMOCEPHALIC - Eye Exam Eye Exam: Normal appearance Pupil Exam: Fixed - ENT Exam Additional comments: OT tube - Neck Exam Neck Exam: Normal Inspection - Respiratory Exam Additional comments: On CPap - Cardiovascular Exam Cardiovascular Exam: Tachycardia - GI/Abdominal Exam GI & Abdominal Exam: Diminished Bowel Sounds Additional comments: PEG infected - Rectal Exam Rectal Exam: Deferred - Extremities Exam Extremities Exam: Pedal Edema - Back Exam Back Exam: NORMAL INSPECTION - Neurological Exam Neurological Exam: Motor Sensory Deficit Neuro motor strength exam: Left Upper Extremity: 0, Right Upper Extremity: 0, Left Lower Extremity: 0, Right Lower Extremity: 0 Assessment and Plan - Assessment and Plan (Free Text) Assessment: Patient's daughters Vera and Meri present at bed side. Patient's condition reviewed first over the phone with Vera, than by Doctor dunne when the daughters arrived. We suggested that patient's condition was declining and that meaningful recovery was not expected. patient become dependent on high doses of O2 and neurological exam was very poor. Both daughters stated that patient had told them that she would not want to have her life uneccassary prolonged on life support. Their major concern was patient's comfort and peaceful . I discussed the process of withdrowal of life support and expected . Both daughters stated feeling comfortable with the decision. Doctor Marcelle Magallanes made aware and concurred. Bereavement cart was provided for the family. I offered spiritual support from the Intensive Care Unit Nurse what family declined. Impression/suggestion * Patient is nearing her . Family is concerned with patient's comfort and is considering terminal withdrawal * Agree with allowing natural
[2016-12-30] MEDS ORDERED: Morphine 4 MG/ML VIAL IVP STA (16:00)
[2016-12-30] MEDS ORDERED: Midazolam 2 MG/2 ML VIAL IVP ONE (16:18)
[2016-12-31 00:21] VITALS: TEMP 97.9
[2016-12-31 00:28] VITALS: BP 52/27; PULSE 70; RESP 9; O2SAT 47
--- NOTE | 2016-12-31 02:00 | CP.PCM.PRO ---
Pronouncement of Note - Pronouncement Time Time of Pronouncement of : 01:25 - Notifications Printing Roller Polisher Notified: No - Autopsy Autopsy Requested: No - [place] [id number]
== END 2016-12-31 01:25 | DRG 871 ==
LOC: C.ER 13:48 → C.9I 15:26
PROVIDERS: ADMIT Internal Medicine Nephrology; ATTEND Internal Medicine Nephrology
PROC: 5A09557 Assistance with Respiratory Ventilation, Greater than 96 Consecutive Hours, Continuous Positive Airway Pressure (ICD-10-PCS; principal; 2016-12-26)
PROC: 02HV33Z Insertion of Infusion Device into Superior Vena Cava, Percutaneous Approach (ICD-10-PCS; 2016-12-28)
DX: A41.9 Sepsis, unspecified organism (principal); I63.9 Cerebral infarction, unspecified; R65.21 Severe sepsis with septic shock; G93.41 Metabolic encephalopathy; I13.2 Hypertensive heart and chronic kidney disease with heart failure and with stage 5 chronic kidney disease, or end stage renal disease; N17.9 Acute kidney failure, unspecified; J18.9 Pneumonia, unspecified organism; N18.6 End stage renal disease; K94.22 Gastrostomy infection; L89.153 Pressure ulcer of sacral region, stage 3; E87.0 Hyperosmolality and hypernatremia; E46 Unspecified protein-calorie malnutrition; J44.0 Chronic obstructive pulmonary disease with (acute) lower respiratory infection; R13.10 Dysphagia, unspecified; F03.90 Unspecified dementia, unspecified severity, without behavioral disturbance, psychotic disturbance, mood disturbance, and anxiety; I50.9 Heart failure, unspecified; E86.0 Dehydration; D63.8 Anemia in other chronic diseases classified elsewhere; E86.1 Hypovolemia; Z66 Do not resuscitate; Z74.01 Bed confinement status; Z87.01 Personal history of pneumonia (recurrent); Z87.11 Personal history of peptic ulcer disease